=== PATIENT | male | born 1965 | race African-American/Black ===

== ENCOUNTER 2022-02-26 00:07 | Day surgery (SDC) | payer MEDICARE, MEDICAID, SELFPAY ==
[2022-02-17 16:23] VITALS: BMI 31.0
[2022-02-26 12:16] VITALS: BP 156/99; PULSE 70; RESP 18; TEMP 36.3; O2SAT 100
[2022-02-26] MEDS: LACTATED RINGERS 1,000 ML 150 ML IV CONT (12:29)
[2022-02-26 12:30] LABS: Glucose Point of Care 129 mg/dl (65-105)
--- NOTE | 2022-02-26 13:01 | WPDHPUPDATE1 ---
History and Physical Update Update Date/Time: 02/26/22 13:01 History and Physical has been reviewed, including an updated exam of the patient. There are NO changes in the patient's condition. Risks, benefits, and alternatives have been discussed and questions answered. Patient agrees to proceed with procedure.
--- NOTE | 2022-02-26 13:14 | WPDANESEPPF ---
Anes - Initial Pre Proc Eval Procedure: Operation Date: 02/26/22 13:30 Proposed Procedures p Esophagogastroduodenoscopy & Colonoscopy - Jefry Harrison MD Date/Time: 02/26/22 13:14 Surgeon: Jefry Harrison MD Pre Op Diagnosis: RACHAEL; rectal bleeding Patient Data Age: 56 Gender: M Height: 1.85 m Weight: 100.7 kg Last Vital Signs Temp 97.4 F L 02/26/22 12:16 Pulse 70 02/26/22 12:16 Resp 18 02/26/22 12:16 BP 156/99 H 02/26/22 12:16 Pulse Ox 100 02/26/22 12:16 O2 Del Method Room Air 02/26/22 12:16 Allergies Allergy/AdvReac Type Severity Reaction Status Date / Time No Known Allergies Allergy Verified 02/26/22 12:11 Home Medications Medication Instructions Recorded Confirmed Type hydrocodone 7.5 mg-acetaminophen 1 tablet PO Q12H PRN pain #30 tabs 10/28/20 02/17/22 Rx 325 mg tablet acetaminophen 650 mg 650 mg PO Q8H PRN Back Pain 01/21/21 02/17/22 History tablet,extended release (Tylenol 8 Hour) amlodipine 10 mg tablet 10 mg PO DAILY 01/21/21 02/17/22 History aspirin 81 mg tablet,delayed 81 mg PO DAILY 01/21/21 02/17/22 History release azelastine 137 mcg (0.1 %) nasal 1 spray intranasal Q12H PRN 01/21/21 02/17/22 History spray aerosol Allergy Symptoms calcitriol 0.25 mcg capsule 0.25 mcg PO DAILY 01/21/21 02/17/22 History carbamazepine 200 mg tablet 200 mg PO TID 01/21/21 02/17/22 History cetirizine 10 mg tablet (Zyrtec) 10 mg PO DAILY PRN Allergy Symptoms 01/21/21 02/17/22 History cholecalciferol (vitamin D3) 1,250 1,250 mcg PO WEEKLY 01/21/21 02/17/22 History mcg (50,000 unit) capsule fluticasone propionate 50 1 spray intranasal DAILY 01/21/21 02/17/22 History mcg/actuation nasal spray,suspension (Allergy Relief (fluticasone)) ipratropium bromide 21 mcg (0.03 2 spray intranasal BID 01/21/21 02/17/22 History %) nasal spray metformin 500 mg tablet,extended 1,000 mg PO DAILY 01/21/21 02/17/22 History release 24hr minoxidil 2.5 mg tablet 5 mg PO BID 01/21/21 02/17/22 History montelukast 10 mg tablet 10 mg PO QHS 01/21/21 02/17/22 History omega-3 fatty acids 1,000 mg 1,000 mg PO DAILY 01/21/21 02/17/22 History capsule (Fish Oil Concentrate) rosuvastatin 40 mg tablet 40 mg PO DAILY 01/21/21 02/17/22 History sertraline 50 mg tablet 50 mg PO DAILY 01/21/21 02/17/22 History spironolactone 100 mg tablet 100 mg PO DAILY 01/21/21 02/17/22 History levetiracetam 1,000 mg tablet 1,500 mg PO BID #90 tabs 02/05/22 02/17/22 Rx sacubitril 97 mg-valsartan 103 mg 1 tablet PO BID 02/17/22 02/17/22 History tablet (Entresto) Laboratory Tests 02/26/22 12:27 POC Capillary Glucose 129 mg/dl H mg/dl (65-105) Patient hx anesthesia problems: none Family hx anesthesia problems: none Results Review: All pre-operative results and documents have been reviewed as part of the pre-operative evaluation. [facility] Past Medical History Medical History (Updated 02/10/22 @ 09:17 by Marina Malin APRN) BRBPR (bright red blood per rectum) Family history of GI malignancy GERD (gastroesophageal reflux disease) RACHAEL (iron deficiency anemia) Tobacco abuse Surgical History Surgical History History of left knee replacement Social History Social History (Updated 02/17/22 @ 16:33 by Michelle Schuster RN) Smoking packs per day: 0.5 Smoking cigarettes per day: 10.0 Years smoked: 45 Smoking pack-years: 22.50 Smoking status: Current every day smoker Tobacco type: cigarettes Second hand tobacco smoke exposure: Yes Alcohol intake: never Substance use: never Substance use type: does not use Living arrangements: with family Gender identity (if verbalized by the patient): Male Spiritual care concerns: No Anes - Eval Final PreProcedure Day of Procedure 02/26/22 13:14 Patient weight: normal Heart: regular rate and rhythm Lungs: clear to auscultation Airway: Mallampati sca
--- NOTE | 2022-02-26 13:59 | SUR.OPER ---
EGD: [id number] COLON: [id number]
[2022-02-26 14:31] VITALS: BP 122/81; PULSE 66; RESP 17; O2SAT 98
[2022-02-26 14:41] VITALS: BP 150/89; PULSE 63; RESP 19; O2SAT 100
[2022-02-26 14:51] VITALS: BP 153/92; PULSE 61; RESP 21; O2SAT 100
== END 2022-02-26 15:05 | disposition home or self-care (01) ==
PROVIDERS: PCP Internal Medicine Infectious Disease; Visit Provider Internal Medicine Gastroenterology
PROC: 0DJ08ZZ Inspection of Upper Intestinal Tract, Via Natural or Artificial Opening Endoscopic (ICD-10-PCS; CPT 43235; principal; 2022-02-26 13:30)
DX: K62.5 Hemorrhage of anus and rectum (principal); D50.9 Iron deficiency anemia, unspecified; K64.8 Other hemorrhoids; K21.9 Gastro-esophageal reflux disease without esophagitis; K57.30 Diverticulosis of large intestine without perforation or abscess without bleeding; Z79.82 Long term (current) use of aspirin; Z79.84 Long term (current) use of oral hypoglycemic drugs; Z79.891 Long term (current) use of opiate analgesic; F17.210 Nicotine dependence, cigarettes, uncomplicated
CPT/HCPCS: 45378; 43239; 82948; 87081; J2250; J2704; J7120

== ENCOUNTER 2022-03-13 06:38 | Outpatient (CLI) | payer MEDICARE, MEDICAID, SELFPAY ==
--- NOTE | 2022-03-13 06:42 | SUR.OPER ---
Patient brought to GI Lab. Instructions for patient undergoing Capsule Endoscopy reviewed with patient. Consent form signed. Sensor array applied to patient's abdomen and connected to recorded. Patient swallowed capsule with 2 cups of water infused with Simethicone. Patient instructed they may have clear liquids at 0830 this AM and eat or drink at 1030 this AM. Patient instructed to return to GI Lab at 1500 this afternoon for removal of recording device and to call [phone] or to return to the hospital if any nausea and vomiting or abdominal pain is experienced.
--- NOTE | 2022-03-13 15:00 | SUR.PHASEII ---
Patient returned to the GI Lab at 1500 for recorder box removal. Patient voiced no complaints. States they have understanding of instructions. Patient left ambulatory.
== END 2022-03-13 06:39 | disposition home or self-care (01) ==
LOC: ANHENDO 03-17 06:39
PROVIDERS: PCP Internal Medicine Infectious Disease; Visit Provider Internal Medicine Gastroenterology
PROC: 0DJ07ZZ Inspection of Upper Intestinal Tract, Via Natural or Artificial Opening (ICD-10-PCS; CPT 91110; principal; 2022-03-13 07:00)
DX: D50.9 Iron deficiency anemia, unspecified (principal); K29.80 Duodenitis without bleeding; K63.5 Polyp of colon
CPT/HCPCS: 91110

== ENCOUNTER 2023-11-18 09:09 | Outpatient (CLI) | payer MEDICARE, MEDICAID, SELFPAY ==
--- NOTE | ~2023-11-18 | MR_ITS ---
EXAMINATION: MR brain/brain stem wo con DATE: 11/18/2023 10:34 INDICATION: Epilepsy TECHNIQUE: Magnetic resonance imaging (MRI) of the brain and brainstem was performed without intraven ous contrast. Sequences included sagittal and axial T1-weighted SE, axial diffusion-weighted FS SE, a xial 3D SWAN, axial T2-weighted FLAIR, and axial T2-weighted FSE. Apparent diffusion coefficient (ADC ) maps were created. COMPARISON: None. FINDINGS: There are no areas of restricted diffusion to suggest acute infarction. Small old lacunar infarct in the right lentiform nucleus. No abnormal intracranial mass lesion. There are scattered areas of nonsp ecific increased T2-weighted signal intensity in the cerebral white matter, predominantly involving t he deep and periventricular white matter. Small foci of susceptibility artifact in the medial and lat eral left temporal lobe, in the left thalamus and left caudate nucleus consistent with sequela of chr onic microhemorrhage. There are no intraparenchymal signal abnormalities seen on the other pulse sequ ences. The ventricles are symmetric and normal in size. There are no abnormal extra-axial fluid colle ctions. No evident flow void along the course of the right vertebral artery which may be either dimin utive or occluded. Flow voids are seen in the remainder of the cerebral arteries on the T2-weighted s equences consistent with their expected patency. Mild mucosal thickening the bilateral ethmoid sinuse s. Visualized orbits and soft tissues are unremarkable. Severe upper cervical spondylosis. IMPRESSION: 1. Small old lacunar infarct at the right ventral nucleus. No acute intracranial process. 2. A few scattered foci of susceptibility artifact consistent with sequela of chronic microhemorrhage as detailed above most likely sequela of hypertension but can be seen with amyloid angiopathy. 3. Absent right vertebral artery flow-void which could be due to dominant left vertebral artery and d iminutive right vertebral artery or occlusion of the right vertebral artery. Reviewed, dictated and finalized at location A. IMPRESSION: 1. Small old lacunar infarct at the right ventral nucleus. No acute intracrania l process. 2. A few scattered foci of susceptibility artifact consistent with sequela of c hronic microhemorrhage as detailed above most likely sequela of hypertension bu t can be seen with amyloid angiopathy. 3. Absent right vertebral artery flow-void which could be due to dominant left vertebral artery and diminutive right vertebral artery or occlusion of the righ t vertebral artery.
== END 2023-11-18 09:10 | disposition home or self-care (01) ==
LOC: ANHIMG 09:11
PROVIDERS: PCP Internal Medicine Infectious Disease; Visit Provider Student in an Organized Health Care Education/Training Program
DX: G40.909 Epilepsy, unspecified, not intractable, without status epilepticus (principal); Z86.73 Personal history of transient ischemic attack (TIA), and cerebral infarction without residual deficits
CPT/HCPCS: 70551

== ENCOUNTER 2024-11-09 12:04 | Outpatient (CLI) | payer MEDICARE, MEDICAID, SELFPAY ==
--- NOTE | ~2024-11-09 | XR_ITS ---
MODIFIED ESOPHAGRAM HISTORY: Dysphagia. TECHNIQUE: Modified barium esophagram was performed on 11/09/2024. I administered fluoroscopy and perf ormed the exam with speech pathologist. Patient was seated for lateral fluoroscopic imaging for sathya stion of thin liquids, pudding, solids and quantified amounts, followed by thin liquids in uncontroll ed amounts. This was recorded on tape. A single fluoroscopic spot image was also recorded. The DAP fo r this procedure was 0.792 Gycm2. The amount of fluoroscopy time used during this procedure was 1.2 m inutes. FINDINGS: Oral stage: Adequate function. Pharyngeal stage: Adequate function. Cervical/esophageal stage: Adequate function. IMPRESSION: Patient tolerated regular consistency oral feedings in the upright position. Please cande elate with speech pathologist findings and specific feeding recommendations. Reviewed, dictated and finalized at location A. IMPRESSION: Patient tolerated regular consistency oral feedings in the upright position. Please correlate with speech pathologist findings and specific feedi ng recommendations.
--- OUTSIDE RECORDS SUMMARY | 2024-11-09 12:08 | XMS_ITS | Referral Summary ---
Author Organization [facility] Address [address] [place] [address] Care Team Providers Care Multimedia Educational Specialist Name Role Phone Regino Pardo MD Primary Care Provider Carlo Al MD Unavailable Encounters Date Type Department Care Team Description 10/20/2024 Telephone [facility] Gastroenterology at [address] [place] [address] Rebekah Marino 10/18/2024 Results Follow-Up [facility] Gastroenterology at [address] [place] [id number] Glory Jaffe MD Surgical pathology 10/06/2024 11:31 AM CDT Anesthesia Event [address] [address] Jefry Briggs MD Zirkelbach, Cecilia A., CRNA 10/06/2024 10:00 AM CDT - 10/06/2024 10:30 AM CDT Surgery [address] [address]Glory Grossman MD COLON REMOVAL SNARE 10/06/2024 8:39 AM CDT - 10/06/2024 12:46 PM CDT Hospital Encounter [address] [address]Glory Grossman MD Hx of colonic polyps Discharge Disposition: Discharge to home or self care 08/15/2024 Telephone [facility] Gastroenterology at [address] [place] [address] Natalya Marino MA 08/11/2024 8:15 AM CDT Office Visit [facility] Gastroenterology at [address] [place] [phone] Reyes Rivera NP Postprandial bloating (Primary Dx); Chronic constipation; Chronic prescription opiate use; High grade dysplasia in colonic adenoma; Tubular adenoma of colon from Last 3 Months Allergies Active Allergy Reactions Criticality Noted Date Comments Umeclidinium-Vilanterol Itching Low 04/21/2019 Medications phenytoin ER (DILANTIN) 100 mg ER capsule Take 2 capsules (200 mg total) by mouth 2 (two) times a day Active sacubitril-valsa rtan (ENTRESTO) 97-103 mg tabletIndication s:chronic heart failure Take 1 tablet by mouth 2 (two) times a day Active rosuvastatin (CRESTOR) 40 mg tablet Take 1 tablet (40 mg total) by mouth daily Active carBAMazepine (TEGretol) 200 mg tablet Take 1 tablet (200 mg total) by mouth 3 (three) times a day Active levETIRAcetam (KEPPRA) 1,000 mg tablet Take 1.5 tablets (1,500 mg total) by mouth 2 (two) times a day Active blood glucose diagnostic strip 1 each by other route daily Active montelukast (SINGULAIR) 10 mg tablet Take 1 tablet (10 mg total) by mouth nightly Active chlorthalidone 25 mg tablet Take 1 tablet (25 mg total) by mouth daily 3 Active pen needle, diabetic (Pen Needle) 32 gauge x 5/32 needle Use as directed once a day. 100 each 3 Active pen needle, diabetic 32 gauge x 5/32 needle Use as directed 3 times a day. 100 each 3 Active OneTouch Ultra2 Meter misc as directed 3 Active OneTouch Delica Plus Lancet 33 gauge misc USE TO TEST THREE TIMES DAILY 3 Active naloxone (Narcan) 4 mg/actuation spray,non-aeroso l Narcan 4 mg/actuation nasal spray SPRAY ONCE IN ONE NOSTRIL IF NEEDED FOR OPIOID OVERDOSE. MAY REPEAT ONCE IN OTHER NOSTRIL IN 2 MINUTES Active insulin glargine 100 unit/mL (3 mL) pen for injection Inject 48 Units under the skin nightly E 11.65 45 mL 3 3 Active insulin aspart niacinamide (FIASP) 100 unit/mL (3 mL) pen for injectionIndicat ions:type 2 diabetes mellitus Inject 15 Units under the skin 3 (three) times a day before meals E11.65 45 mL 3 4 Active docusate sodium (Colace) 100 mg capsuleIndicatio ns:constipation Take 1 capsule (100 mg total) by mouth 2 (two) times a day for 14 days 28 capsule 4 Active rOPINIRole (REQUIP) 0.25 mg tablet Take 1 tablet (0.25 mg total) by mouth 3 (three) times a day Active acetaminophen ER (Tylenol Arthritis Pain) 650 mg 8 hr tablet Active cetirizine (ZyrTEC) 10 mg capsule Active niacin ER (NIASPAN) 1,000 mg CR tablet Take 1 tablet every day by oral route. Active famotidine (PEPCID) 20 mg tablet TAKE 1 TABLET BY MOUTH DAILY FOR HEARTBURN 4 Active HYDROcodone-acet aminophen (NORCO) 7.5-325 mg per tablet Take 1 tablet by mouth 4 (four) times a day 4 Active sertraline (ZOLOFT) 50 mg tablet Take 1 tablet (50 mg total) by mouth daily 4 Active brlaj-3r-qhy-epa -algal oil 726-048-02-500 mg capsule Take 1 capsule by mouth daily Active aspirin 81 mg enteric coated tablet Take 1 tablet (81 mg total) by mouth daily Active gabapentin (NEURONTIN) 300 mg capsule Take 1 capsule (300 mg total) by mouth daily Active carvediloL (COREG) 3.125 mg tablet Take 1 tablet (3.125 mg total) by mouth 2 (two) times a day with meals 60 tablet 11 4 04/08/20 25 Active spironolactone (ALDACTONE) 50 mg tablet Take 1 tablet (50 mg total) by mouth daily Active Phenytek 200 mg ER capsule Take 1 capsule (200 mg total) by mouth daily 4 Active cholecalciferol 400 unit capsule Act katharina calcitRIOL (ROCALTROL) 0.25 mcg capsule Take 1 capsule (0.25 mcg total) by mouth daily Active chlorproMAZINE (THORAZINE) 25 mg tablet Take 1 tablet (25 mg total) by mouth 5 Active ergocalciferol (VITAMIN D) 50,000 unit capsule Take 1 capsule (50,000 Units total) by mouth once a week 5 Active NIFEdipine CC 90 mg 24 hr tablet Take 1 tablet (90 mg total) by mouth daily 5 Active spironolactone (ALDACTONE) 100 mg tablet Take 1 tablet (100 mg total) by mouth daily 5 Active omega 3-zdf-gdd-fish oil 1,000 mg (250 mg-750 mg)/5 mL liquid Take by oral route. Active senna (SENOKOT) 8.6 mg tablet Take two tabs at night on a twice weekly basis to help facilitate larger and more complete bowel movements. 60 tablet 3 5 Active simethicone (MYLICON) 125 mg chewable tablet Take 1 tablet (125 mg total) by mouth 4 (four) times a day as needed (cramping/bloat ing/gas/nausea) 120 tablet 11 5 Active vgplb-a-hflivaci idase 400 unit tablet Take two tabs before eating 3 times daily. If not eating, do not have to take. Take right as you start eating. 180 tablet 11 5 Active Lactobacillus rhamnosus GG (CULTURELLE) 10 billion cell capsule Take 1 capsule by mouth daily 90 capsule 3 5 08/12/19 26 Active allopurinoL (ZYLOPRIM) 100 mg tablet Take 1 tablet (100 mg total) by mouth daily Active vit C,V-Bb-anwzh-lut ein-zeaxan 250-90-40-1 mg capsule Take by mouth Active Active Problems Problem Noted Date Diagnosed Date History of colonic polyps 10/20/2024 Tubular adenoma of colon 08/11/2024 Postprandial bloating 08/11/2024 Hx of colonic polyps 05/04/2024 Constipation 04/13/2024 Screening for colon cancer 04/13/2024 Chest pain, unspecified type 04/07/2024 S/P hemorrhoidectomy 03/07/2024 Breakthrough seizure 03/05/2024 CKD stage 3a, GFR 45-59 ml/min 02/13/2024 Lower GI bleeding 02/10/2024 Diabetic ketoacidosis withou t coma associated with type 2 diabetes mellitus 08/17/2022 Chronic heart failure with preserved ejection fr action 08/17/2022 Kidney cysts 10/15/2019 Class 1 obesity due to exces s calories with serious comorbidity in adult 10/15/2019 Community acquired pneumonia of right lung 02/27 Hemoptysis 02/27/2019 Weight loss 02/27/2019 Night sweats 02/27/2019 Hypertensive crisis 01/28/2019 Acute on chronic systolic CHF (congestive heart failure) 01/27/2019 MERCEDES on CPAP 01/27/2019 MICKIE (acute kidney injury) ([facility]) 01/27/2019 Type 2 diabetes mellitus wit h hyperglycemia, with long-term current use of insulin ([facility]) 01/27/2019 Assessment & Plan (09/03/2022 3:13 PM CDT): This is a chronic condition which is out of control, improving not at goal of less than 7%. Personally reviewed most recent A1c - Lab Results Component Value Date HGBA1C 11.0 (H) 08/16/2022 Personally reviewed POC blood sugar- at goal 80-180 Lab Results Component Value Date POCGLU 97 09/03/2022 Medication-continue metformin 500 mg 1 tab twice daily Lantus 55 units daily HS, lispro 18 units 15 minutes prior to meals. Discussed using 10 units for small meals 15 units for medium meals and 18 units for large meal Discussed adding Jardiance but will wait until I can review the most recent lab results. Monitor blood sugar 3 times a day. Does not want a sensor sensor. States he can not stand have things hanging on him. Encouraged annual eye exam. last dilated eye exam was [facility] Monofilament foot exam completed. protective senses intact but diminished Treated with gabapentin Urine microalbumin/creatinine ratio - goal <30 treated with amlodipine, chlorthalidone, sacubitril/valsartan, spironolactone. Personally reviewed [facility] eGFR-49 Kidney function- abnormal B/P today- at goal of <140/90. Continue amlodipine, chlorthalidone, sacubitril/valsartan, spironolactone. Personally reviewed lipid panel. Not at Goal of less than 70. Continue Crestor Seizure disorder (CMS/HCC) 01/27/2019 Primary hypertension 01/27/2019 Assessment & Plan (09/03/2022 3:15 PM CDT): This is a chronic condition which is at goal of less than 140/90 Personally reviewed labs. Continue treated with amlodipine, chlorthalidone, sacubitril/valsartan, spironolactone. Encouraged to void caffeine and excessive alcohol consumption as this will elevate B/P Encouraged to monitor weight and B/P at home Explained correct way to take blood pressure. - After 5 minutes of sitting calmly with arm supported. Encouraged to take medications as prescribed. Elevated troponin 01/27/2019 Sinus tachycardia 01/27/2019 Positive D dimer 01/27/2019 Tobacco use disorder Mediastinal mass Hypertensive urgency Chest pain Acute kidney injury (MICKIE) with acute tubular nec rosis (ATN) Resolved Problems Problem Noted Date Diagnosed Date Resolved Date Hemorrhoids 02/21/2024 03/07/2024 Assessment & Plan (02/28/2024 6:24 AM CDT): Discussed the procedure of hemorrhoidectomy as well as the post operative period, patient Is understanding and agreeable. We also discussed picking up his miralax and making sure he is having a bowel movement at least every 2 days, patient is understanding. Bleeding hemorrhoid 02/13/2024 03/28/20 Acute cholecystitis 03/28/20 Assessment & Plan (10/31/2019 9:22 AM CDT): Diet as tolerates. Bowel regimen as needed. No heavy lifting for 4 weeks. No submerging incisions for 4 weeks. Okay to return to work with light duty. Patient to call back with any further questions or concerns. Immunizations Immunization Administration Dates Next Due Influenza, Quadrivalent, Spl it, Intramuscular 01/31/2019,01/25/2017,01/14/2016 Influenza, Trivalent, IM (MDV) 01/31/2017 Influenza, Unspecified 01/23/2019 Social History Tobacco Use Types Packs/Day Years Used Date Smoking Tobacco: Every Day Cigarettes 1 45 Smokeless Tobacco: Never Tobacco Cessation:Ready to Q uit: Not Asked; Counseling Given: Not Answered Comments:pt reports not smoking over the past 2 days Alcohol Use Standard Drinks/Week Comments Never 0 (1 standard drink = 0.6 oz pur e alcohol) [facility] Utilities Answer Date Recorded In the past 12 months has e [employer], gas, oil, or water [employer] threatened to shut off services in your home? No 03/07/2024 Social Connection and Isolat ion Panel [NHANES] Answer Date Recorded In a typical week, how many times do you talk on the phone with family, friends, or neighbors? More than three times a week 03/07/2024 How often do you get togethe r with friends or relatives? Once a week 03/07/2024 How often do you attend chur ch or confucianist services? Never 03/07/2024 Do you belong to any clubs o r organizations such as restorationism groups, unions, fraternal or athletic groups, or school groups? No 03/07/2024 How often do you attend meet ings of the clubs or organizations you belong to? Never 03/07/2024 Are you , , di vorced, , never , or living with a partner? Living with partner 03/07/2024 AUDIT-C Answer Date Recorded Q1: How often do you have a drink containing alcohol? Never 10/06/2024 Q2: How many drinks containi ng alcohol do you have on a typical day when you are drinking? Patient does not drink Q3: How often do you have si x or more drinks on one occasion? Never 10/06/2024 Overall Financial Resource Strain (CARDIA) Answe r Date Recorded How hard is it for you to pa y for the very basics like food, housing, medical care, and heating? Not hard at all 03/07/2024 PHQ-2 Answer Date Recorded PHQ-2 Total Score (If total score is 3 or more points, staff should administer the PHQ-9) 0 10/18/2019 Hunger Vital Sign Answer Date Recorded Within the past 12 months, y ou worried that your food would run out before you got the money to buy more. Never true 03/07/20 24 Within the past 12 months, t he food you bought just didn't last and you didn't have money to get more. Never true 03/07/2024 PRAPARE - Transportation Answer Date Re corded In the past 12 months, has l ack of transportation kept you from medical appointments or from getting medications? No 09/2023 In the past 12 months, has l ack of transportation kept you from meetings, work, or from getting things needed for daily living? No 03/07/2024 Housing Stability Vital Sign Answer Colton e Recorded In the last 12 months, was t here a time when you were not able to pay the mortgage or rent on time? No 03/07/2024 In the past 12 months, how m any times have you moved where you were living? 0 03/07/2024 At any time in the past 12 m [facility], were you homeless or living in a intermediate (including now)? No 03/07/2024 Personal Safety Answer Date Recorded Have you ever been in or are you currently in a harmful physical or emotional relationship or is someone making you feel afraid or unsafe? 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 Gender Identity Not on file Sexual Orientation Not on file Last Filed Vital Signs Vital Sign Reading Time Taken Comments Blood Pressure 158/93 10/06/2024 12:36 PM CDT Pulse 57 10/06/2024 12:36 PM CDT Temperature 36.4 C (97.6 F) 10/06/2024 12:36 PM CDT Respiratory Rate 16 10/06/2024 12:36 PM CDT Oxygen Saturation 99% 10/06/2024 12:36 PM CDT Inhaled Oxygen Concentration - - Weight 104.3 kg (230 lb) 10/06/2024 9:34 AM CDT Height 185.4 cm (6' 1) 10/06/2024 9:34 AM CDT Body Mass Index 30.34 10/06/2024 9:34 AM CDT Plan of Treatment Upcoming Encounters Date Type Department Care Team (Late st Contact Info) Description 10/10/2025 7:55 AM CDT Hospital Encounter [address] [address] Glory Jaffe MD [address] [place] [address] 10/10/2025 7:55 AM CDT - 10/10/2025 8:25 AM CDT Surgery [facility] [address] [place] [address] Glory Jaffe MD [address] [place] [address] COLONOSCOPY Scheduled Procedures Name Priority Associated Diagnoses Date/Ti me COLONOSCOPY History of colonic polyps 10/10/2025 7:55 AM CDT Procedures Procedure Name Priority Date/Time Associated Diagnosis Comments SURGICAL PATHOLOGY STAT 10/06/2024 1: 42 PM CDT Hx of colonic polyps ENDO ADD ON COLON BIOPSY 10/06/2024 11:22 AM CDT Hx of colonic polyps COLON REMOVAL SNARE 10/06/2024 1 1:22 AM CDT Hx of colonic polyps POCT GLUCOSE DEVICE Routine 10/06/2024 1 0:11 AM CDT COLONOSCOPY 10/06/2024 8:53 AM CDT EGFR Routine 04/08/2024 5:36 AM DIRECTOR MEDICAL SURGICAL HEMOGLOBIN A1C Routine 04/08/2024 5:36 AM DIRECTOR MEDICAL SURGICAL LIPID PANEL Routine 04/08/2024 5:36 AM DIRECTOR MEDICAL SURGICAL DIABETIC EYE EXAM Routine 09/01/2022 ALBUMIN CREATININE RATIO, URINE Routine 05/08/2022 from Last 3 Months or Most Recently Relevant to Health Maintenance Results * Surgical pathology (10/06/2024 1:42 PM CDT) Tissue (Polyp(s), colon/colorectal, esophageal, gastric) 10/06/2024 12:06 PM CDT Tissue specimen (specimen) (Polyp(s), colon/colorectal, esophageal, gastric) 10/06/2024 12:07 PM CDT Tissue specimen (specimen) (Polyp(s), colon/colorectal, esophageal, gastric) 10/06/2024 12:07 PM CDT Tissue specimen (specimen) (Colon, Biopsy) 10/06/2024 12:07 PM CDT Narrative PATHOLOGY [facility] - 10/10/2024 4:55 PM CDT EPIC results best viewed via link to PDF [facility] Department of Pathology [address] [place] [address] Note to Patients: This report may contain a detailed description of human tissue sent by a health care provider to the laboratory for pathologic evaluation. The content of this report is essential for diagnosis and may provide important critical findings. This information may be unfamiliar to patients to review without a medical professional present. It is advised that the patient review this report in the presence of a health care provider who can answer questions and explain the details. Final Report Patient Name: HORTENCIA CAMARENA Address: [address] [place] [address] Gender: [place] : 1965 (Age: 59) Service: Gastro Location: [facility] Hospital #: [id number] Patient Type: [facility] Taken: 10/06/2024 Received: 10/06/2024 Accessioned: 10/06/2024 Reported: 10/10/2024 Physician(s):Glory Jaffe MD Diagnosis: A. Colon, cecum, biopsy: - Polypoid fragments of colonic mucosa with superficial hyperplastic change. B. Colon, ascending, polypectomy: - Tubular adenoma. C. Colon, descending, polypectomy: - Tubular adenoma. D. Colon, left, biopsy: - Minimal inactive chronic colitis. - No evidence of dysplasia or malignancy. Lynsey Naik M.D. Report Electronically Reviewed and Signed Out By Lynsey Naik M.D. 10/10/2024 16:55:36 Specimen(s) Received: A: Cecum polyp x 1 B: Ascending colon polyp x 1 C: Descending colon polyp x 1 D: Left colon biopsy Microscopic Description: A. Microscopic examination of the cecum show polypoid fragments of colonic mucosa with superficial hyperplastic change. Additional H&E recuts are obtained and show similar features. B & C. Microscopic examination of the ascending and descending colon both show a single tubular adenoma without evidence of high-grade dysplasia or malignancy. D. Microscopic examination of the random left colon biopsies, examined at multiple levels show fragments of minimally edematous colonic mucosa with changes consistent with minimal inactive chronic colitis. There is no evidence of acute cryptitis, crypt abscesses, granulomas or other infiltrative processes, although a rare benign lymphoid aggregate is noted. There is no evidence of dysplasia or malignancy. Clinical History: History of colonic polyps. Colonoscopy. Gross Description: The specimen is submitted in four containers labeled HORTENCIA CAMARENA. A. The first container is labeled cecum polyp. It is 2 huang tissue fragments between 2 and 5 mm. All in A. B. The second container is labeled ascending colon polyp. It is one huang tissue fragment measuring 2 mm. All in B. C. The third container is labeled descending colon polyp. It is one huang tissue fragment measuring 2 mm. All in C. D. The fourth container is labeled left colon. It is 2 huang tissue fragments between 2 and 3 mm. All in D. T.A. Silvia Noland., P.A./Min Chapman M.D. REPORT IMAGES AND SCANNED DOCUMENTS, IF INCLUDED, ONLY VIEWABLE IN PDF VERSION OF REPORT The performance characteristics of some immunohistochemical stains, fluorescence in-situ hybridization tests and immunophenotyping by flow cytometry cited in this report (if any) were determined by the Surgical Pathology Department at [facility] as part of an ongoing director software quality assurance program and in compliance with federally mandated regulations drawn from the Clinical Laboratory Improvement Act of 1988 (CLIA '88). Some of these tests rely on the use of analyte specific reagents and are subject to specific labeling requirements by the US Food and Drug Administration. Such diagnostic tests may only be performed in a facility that is certified by the Department of Health and Human Services as a high complexity laboratory under CLIA '88. The FDA has determined that such clearance or approval is not necessary. This test is used for clinical purposes. It should not be regarded as investigational or for research. Nevertheless, federal rules concerning the medical use of analyte specific reagents require that the following disclaimer be attached to the report: This test was developed and its performance characteristics determined by the Surgical Pathology Department [facility]. It has not been cleared or approved by the U. S. Food and Drug Administration. Note for decalcified specimens: This assay has not been validated on decalcified tissues. Results should be interpreted with caution given the possibility of false negativity on decalcified specimens Glory Jaffe MD LAB PATHOLOGY ORDERABLES Final R esult PATHOLOGY [facility] [address] [place] [id number] * POCT glucose (10/06/2024 10:11 AM CDT) Glucose, POC 115 70 - 199 mg/dL Blood 10/06/2024 10:1 1 AM CDT 10/06/2024 10:11 AM CDT Glory Jaffe MD LAB POCT ORDERABLES - DEVICE Fin al Result Performing Organization Address [facility] Co de Phone Number [facility]ERN[facility] [address] Department [place] [address] * Colonoscopy (10/06/2024 8:53 AM CDT) Anatomical Region Laterality Modality Other Narrative Procedure Note Glory Jaffe MD - 10/06/2024 8:53 AM CDT [facility] Patient Name: Hortencia Camarena Procedure Date: 10/06/2024 8:53 AM Date of : 1965 Admit Type: Outpatient Age: 59 Gender: Male Attending MD: Glory Jaffe M.D. Room: [facility] ENDOSCOPY ROOM 2 Note Status: Finalized Patient Profile: This is a 59 year old male history of MERCEDES, DM, CHF, tobacco use here for colon polyp surveillance. Last colonoscopy from 04/2024 showed 15 mm tubularadenoma with small foci of high grade dysplasia in thececum removed with snare and forceps and 3 otherdiminutive to small adenomas. Prep was fair. Procedure: Colonoscopy Indications: High risk colon cancer surveillance: Personalhistory of adenoma with high grade dysplasia, Lastcolonoscopy within the past 6 months Referring MD: Regino Pardo M.D. Providers: Glory Jaffe M.D. Impression: - Scar tissue with two diminuitive polyps fromprior polypectomy site. Removed with cold snare and jumbo forceps - Two 2 mm polyps in the descending colon and inthe ascending colon, removed with a jumbo cold forceps. Resected and retrieved. - Erythematous mucosa in the sigmoid colon and inthe descending colon. Biopsied. - External and internal hemorrhoids. - Colonic spasm. Recommendation: - Patient has a contact number available for emergencies. The signs and symptoms of potential delayed complications were discussed with thepatient. Return to normal activities tomorrow. Written discharge instructions were provided to thepatient. - Discharge patient to home (with escort). - Resume previous diet. - Continue present medications. - Await pathology results. - Repeat colonoscopy in 1 year with 2 day prep for surveillance based on pathology results. - Return to referring physician as previously scheduled. Medicines: Monitored Anesthesia Care Complications: No immediate complications. Estimated Blood Loss: Estimated blood loss was minimal. Procedure: Pre-Anesthesia Assessment: - Prior to the procedure, a History and Physicalwas performed, and patient medications and allergieswere reviewed. The patient is competent. The risks and benefits of the procedure and the sedation optionsand risks were discussed with the patient. Allquestions were answered and informed consent was obtained. Patient identification and proposed procedure were verified by the physician, the tread cutter and the evidence technician in the endoscopy suite. Mental Status Examination: normal. Prophylactic Antibiotics: The patient does not require prophylactic antibiotics. Prior Anticoagulants: The patient has taken no anticoagulant or antiplatelet agents. Afterreviewing the risks and benefits, the patient was deemed in satisfactory condition to undergo the procedure.The anesthesia plan was to use monitored anesthesiacare (MAC). Immediately prior to administration of medications, the patient was re-assessed foradequacy to receive sedatives. The heart rate, respiratory rate, oxygen saturations, blood pressure, adequacyof pulmonary ventilation, and response to care were monitored throughout the procedure. The physical status of the patient was re-assessed after the procedure. The benefits, risks and alternatives of theprocedure and sedation were discussed and informed consentwas obtained. All questions were answered. Please referto the signed informed consent document in the medical record. The bowel preparation used was Miralax and bisacodyl tablets via split dose instruction. The scope was passed under direct vision. The Pediatric Colonoscope [id number] was introduced through the anus and advanced to the the cecum, identified by appendiceal orifice and ileocecalvalve. The colonoscopy was performed without difficulty.The patient tolerated the procedure well. The qualityof the bowel preparation was adequate. Bowel prep was administered using a split dose. Findings: The perianal and digital rectal examinations were normal. Scar tissue with two diminuitive polyps from prior polypectomy site. Removed with cold snare and jumbo forceps. Two sessile polyps were found in the descending colon and ascending colon. The polyps were 2 mm in size. These polyps were removed with a jumbo cold forceps. Resection and retrieval were complete. A scattered area of mildly erythematous mucosa was found in thesigmoid colon and in the descending colon. This was biopsied with a coldforceps for histology. External and internal hemorrhoids were found during retroflexion. There was spasm in the rectum, in the sigmoid colon and in the descending colon. Glory Jaffe M.D. 10/06/2024 12:15:13 PM Number of Addenda: 0 Note Initiated On: 10/06/2024 8:53 AM Procedure Code(s): --- Professional --- 90873, Colonoscopy, flexible; with biopsy, single or multiple --- Technical --- 50643, Colonoscopy, flexible; with biopsy, single or multiple Diagnosis Code(s): --- Professional --- Z86.010, Personal history of colonic polyps D12.4, Benign neoplasm of descending colon D12.2, Benign neoplasm of ascending colon K63.89, Other specified diseases of intestine K64.8, Other hemorrhoids --- Technical --- Z86.010, Personal history of colonic polyps D12.4, Benign neoplasm of descending colon D12.2, Benign neoplasm of ascending colon K63.89, Other specified diseases of intestine K64.8, Other hemorrhoids CPT copyright 2020 [employer]. All rights reserved. The codes documented in this report are preliminary and upon roll former reviewmay be revised to meet current compliance requirements. Recognized by the [employer] for promoting quality in endoscopy Glory Jaffe MD ENDOSCOPY PROCEDURES Final Resul t * (ABNORMAL) eGFR (04/08/2024 5:36 AM DIRECTOR MEDICAL SURGICAL) eGFR 54(L) >=60 mL/min/1. 73 m2 Comment: Interpretive Data Reference Interval Normal >/= 90 mL/min/1.73m2 Mildly decreased* 60 - 89 mL/min/1.73m2 Mildly to moderately decreased 45 - 59 mL/min/1.73m2 Moderately to severely decreased 30 - 44 mL/min/1.73m2 Severely decreased 15 - 29 mL/min/1.73m2 Kidney Failure < 15 mL/min/1.73m2 *Relative to young adult level Estimated glomerular filtration rate is determined by the 2020 CKD-EPI equation recommended by the National Kidney Foundation (A Unifying Approach to GFR Estimation: Recommendations of the NKF-ASK Task Force on Reassessing the Inclusion of Race in Diagnosing Kidney Disease, JASN 2020). The CKD-EPI equation should not be used for patients with unstable renal function and has not been validated in children and those over 70. Current interpretive data was last reviewed 2021. Blood 04/08/2024 5:36 AM DIRECTOR MEDICAL SURGICAL 04/08/2024 5:47 AM DIRECTOR MEDICAL SURGICAL us Saige Carpenter MD LAB BLOOD ORDERABLES Fi nal Result Performing Organization Address [facility] Co de Phone Number BERNADETTE UGALDE [place]) [address] [place] [address] * (ABNORMAL) Hemoglobin A1c (04/08/2024 5:36 AM DIRECTOR MEDICAL SURGICAL) Hgb A1C 6.6(H) 4.0 - 5.6 % Estimated Average Glucose 143 mg/dL BERNADETTE UGALDE (GENI) Comment: The ADA recommends reporting an estimated Average Glucose (eAG) with all Hemoglobin A1c results using the equation derived from a study of 507 normal and diabetic adults. Minority populations were underrepresented and children were not included. (Diabetes Care 31:0734-4464, 2008). The eAG is not equivalent to a fasting glucose. Blood 04/08/2024 5:36 AM DIRECTOR MEDICAL SURGICAL 04/08/2024 5:46 AM DIRECTOR MEDICAL SURGICAL us Kaylie Kang MD LAB BLOOD ORDERABLES Final Resul t Performing Organization Address [facility] Co de Phone Number BERNADETTE UGALDE ([place]) [address] [place] [address] * (ABNORMAL) Lipid panel (04/08/2024 5:36 AM DIRECTOR MEDICAL SURGICAL) Cholesterol 147 30 - 199 mg/dL Comment: Interpretive Data Ages < or = 19 years Acceptable: <170 mg/dL Borderline high: 170-199 mg/dL High: >or= 200 mg/dL Ages > or = 20 years Desirable: <200 mg/dL Borderline high: 200-239 mg/dL High: >or= 240 mg/dL Literature References: 1. Expert Panel on Integrated Guidelines for Cardiovascular Health and Risk Reduction in Children and Adolescents. Pediatrics 2011;128:S213 2. NCEP Expert Panel. Circulation 2004;110:227 Current Interpretive Data was last revised on 2017. Triglycerides 307(H) <=149 mg/dL [facility] (GENI) Comment: Interpretive Data Ages < or = 9 years Acceptable: <75 mg/dL Borderline high: 75-99 mg/dL High: >or= 100 mg/dL Ages 10 to 20 years Acceptable: <90 mg/dL Borderline high: 90-129 mg/dL High: >or= 130 mg/dL Ages > or = 20 years Desirable: <150 mg/dL Borderline high: 150-199 mg/dL High: 200-499 mg/dL Very high: >or= 499 mg/dL Literature References: 1. Expert Panel on Integrated Guidelines for Cardiovascular Health and Risk Reduction in Children and Adolescents. Pediatrics 2011;128:S213 2. NCEP Expert Panel. Circulation 2004;110:227 Current Interpretive Data was last revised on 2017. HDL 33(L) >=40 mg/dL BERNADETTE DICK) Comment: Interpretive Data Ages < or = 19 years Acceptable: >45 mg/dL Borderline low: 40-45 mg/dL Low: <40 mg/dL Ages > or = 20 years Desirable: >or= 60 mg/dL Low: <40 mg/dL Literature References: 1. Expert Panel on Integrated Guidelines for Cardiovascular Health and Risk Reduction in Children and Adolescents. Pediatrics 2011;128:S213 2. NCEP Expert Panel. Circulation 2004;110:227 Current Interpretive Data was last revised on 2017. LDL, calculated 65 <=129 mg/dL BERNADETTE DICK) Comment: Interpretive Data Ages < or = 19 years Acceptable: <110 mg/dL Borderline high: 110-129 mg/dL High: >or= 130 mg/dL Ages > or = 20 years Optimal: <100 mg/dL Near optimal: 100-129 mg/dL Borderline high: 130-159 mg/dL High: >160 mg/dL Calculated using the Kaveh LDL-C estimating equation. This equation was implemented on 2023. Prior to this date LDL-C was estimated using the Friedewald equation. Literature References: 1. Expert Panel on Integrated Guidelines for Cardiovascular Health and Risk Reduction in Children and Adolescents. Pediatrics 2011;128:S213 2. NCEP Expert Panel. Circulation 2004;110:227 3. Kaveh Bryson et al. WINSTON Cardiol. 2020 August 31;5(5):540-548. doi: 10.1001/jamacardio.2020.0013 Current Interpretive Data was last revised on 2023. Non-HDL Cholesterol 114 mg/dL BERNADETTE UGALDE (GENI) Comment: Interpretive Data Ages < or = 19 years Acceptable: <120 mg/dL Borderline high: 120-144 mg/dL High: >145 mg/dL Ages > or = 20 years When triglycerides are >200 mg/dL, Non-HDL cholesterol is a secondary target of therapy with treatment goals that are 30 mg/dL greater than the LDL cholesterol target. Literature References: 1. Expert Panel on Integrated Guidelines for Cardiovascular Health and Risk Reduction in Children and Adolescents. Pediatrics 2011;128:S213 2. NCEP Expert Panel. Circulation 2004;110:227 Current Interpretive Data was last revised on 2017. Chol/HDL ratio 4 PATRICK UGALDE ([place]) Blood 04/08/2024 5:36 AM DIRECTOR MEDICAL SURGICAL 04/08/2024 5:47 AM DIRECTOR MEDICAL SURGICAL Saige Carpenter MD LAB BLOOD ORDERABLES Fi nal Result Performing Organization Address [facility] Co de Phone Number BERNADETTE UGALDE ([place]) [address] [facility] Department [place] [address] * (ABNORMAL) Diabetic Eye Exam (09/01/2022) Historical Provider HEALTH MAINTENANCE Final Result * Albumin Creatinine Ratio, Urine (05/08/2022) SCRIBED Creatinine, Urine 244.64 - - - EXTERNAL LAB SCRIBED Microalbumin 249.7 - - - EXTERNAL LAB SCRIBED Microalb/Creat Ratio 102 EXTERNAL LAB Urine 05/08/2022 Historical Provider LAB URINE ORDERABLES Suki l Result Performing Organization Address [facility] Co de Phone Number EXTERNAL LAB from Last 3 Months or Most Recently Relevant to Health Maintenance Insurance IDPA [facility] MEDICARE IDPA MEDICARE Advance Directives For more information, please contact: [phone] * Full Code (Latest Code Status on File) Date Activated Date Inactivated Comments 10/06/2024 9:31 AM 10/06/2024 4:57 PM * Full Code Date Activated Date Inactivated Comments 10/06/2024 9:30 AM 10/06/2024 9:31 AM * Full Code Date Activated Date Inactivated Comments 2024 7:10 AM 2024 1:56 PM * Full Code Date Activated Date Inactivated Comments 2024 7:10 AM 2024 7:10 AM * Full Code Date Activated Date Inactivated Comments 04/08/2024 1:34 AM 04/08/2024 9:19 PM Care Teams Multimedia Educational Specialist Relationship Specialty [place] [address] [place] [address] PCP - General 02/16/17 Carlo Al MD [address] [place] [address] Consulting Physician General Surgery 10/21/19
--- OUTSIDE RECORDS SUMMARY | 2024-11-09 12:09 | XMS_ITS ---
Author Organization [facility] Address [address] [place] [address] [place] [address] Care Team Providers Care Corporate Security Officer Name Role Phone Stone Ross Primary Care Provider [phone] Problems Problem Type SNOMED Code ICD Code Onset Dates Problem Status W/U Status Risk Notes Problem CAD (coronary artery disease) (I25.10) Active confirmed Encounters Encounter Location Date Provider Diagnosis [place] [facility] [address] [facility] [address] [place] [address] 07/07/2024 Stone Ross Chronic kidney disea se, stage 3a N18.31 ; Essential (primary) hypertension I10 ; Secondary hyperparathyroidism, not elsewhere classified E21.1 ; Renal osteodystrophy N25.0 ; Proteinuria, unspecified R80.9 ; Vitamin D deficiency, unspecified E55.9 and CAD (coronary artery disease) I25.10 Assessments Encounter Date Diagnosis (ICD Code) Assessment Notes Treatment Notes Treatment Clinical Notes Section Notes 07/07/2024 Chronic kidney disease, stage 3a (ICD-10 - N18.31) 07/07/2024 Essential (primary) hypertension (ICD-10 - I10) 07/07/2024 Secondary hyperparathyroidism , not elsewhere classified (ICD-10 - E21.1) 07/07/2024 Renal osteodystrophy (ICD-10 - N25.0) 07/07/2024 Proteinuria, unspecified (ICD-10 - R80.9) 07/07/2024 Vitamin D deficiency, unspecified (ICD-10 - E55.9) 07/07/2024 CAD (coronary artery disease) (ICD-10 - I25.10) Plan Of Treatment Next Appt Details Provider Name:Stone Ross , 11/17/2024 01:45:00 PM, [address], [place], [address], Progress Notes * HORTENCIA ALMANZADOB:1965 ([age] yo M)Acc No.[id number]:07/07/2024 Patient: HORTENCIA VALENTINO Provider: Alex BENÍTEZ MD, Odell.Analisa.C.P, F.A.S.N. :1965 A ge:59 Y S ex:Male Date:07/07/2024 Address:[address] [place] [address] Subjective: * Chief Complaints: Objective: Assessment: * Assessment: 1. C hronic kidney disease, stage 3a - N18.31 (Primary) 2 . E ssential (primary) hypertension - I10 3 . S econdary hyperparathyroidism, not elsewhere classified - E21.1 4 . R enal osteodystrophy - N25.0 5 . P roteinuria, unspecified - R80.9 6 . V itamin D deficiency, unspecified - E55.9 ? 7 . C AD (coronary artery disease) - I25.10 Plan: * Billing Information: * Visit Code: 88985 Office Visit, Est Pt., Level 5. * Procedure Codes: * Electronic signature of Ava Ross MD on 11/09/2024 at 12:08 PM CDT Sign off status: Pending * Provider: Alex BENÍTEZ MD, Odell.Analisa.C.P, F.A.S.N. Date: 0 07/07/2024 Generated for Printing/Faxing/eTransmitting on: 0 11/09/2024 12:08 PM CDT
--- OUTSIDE RECORDS SUMMARY | 2024-11-09 12:09 | XMS_ITS | Clinical Summary ---
Author Organization [facility] Address [address] [place] [address] Care Team Providers Care Program Associate Name Role Phone Regino Pardo MD Primary Care Provider Stone Ross MD Unavailable [phone] Source Comments [facility],non-owned Affiliates and Associated Physician Practices is amultiple site organization consisting of ambulatory clinics and hospital sitesin [place], [place], [place] and [place]. This disclosure is being madepursuant to the Care Everywhere program and may not contain all information available regarding this patient. Last updated 18.[facility] Allergies Active Allergy Reactions Criticality Noted Date Comments Umeclidinium-Vilanterol Itching Low 04/21/2019 Medications * Be aware that medications may not be up to date on this document. Alwaysverify current medications with the patient. phenytoin ER (DILANTIN) 100 MG capsule Take 100 mg by mouth 2 times daily Active sertraline (ZOLOFT) 50 MG tablet Take 50 mg by mouth once daily Active spironolactone (ALDACTONE) 100 MG tablet Take 100 mg by mouth once daily Active vitamin D, ergocalciferol, (DRISDOL) 62925 units capsule Take 50,000 Units by mouth every 7 days Active sacubitril-vals alphonse (ENTRESTO) 97-103 MG tablet Take 1 tablet by mouth once daily Active aspirin (ASPIRIN) 81 MG chew tablet Take 81 mg by mouth once daily Active calcitriol (ROCALTROL) 0.25 MCG capsule Take 0.25 mcg by mouth once daily Active carBAMazepine (TEGRETOL) 200 MG tablet Take 200 mg by mouth once daily Active carvedilol (COREG) 25 MG tablet Take 25 mg by mouth once daily Active HYDROcodone-chino taminophen (NORCO) 7.5-325 MG tablet Take 1 tablet by mouth once daily Active levETIRAcetam (KEPPRA) 1000 MG tablet Take 1,000 mg by mouth once daily Active metFORMIN CR osmotic 24hr (FORTAMET) 500 MG (OSM) tablet Take 500 mg by mouth once daily Active ferrous sulfate 325 (65 FE) MG tablet Take 325 mg by mouth once daily Active minoxidil (LONITEN) 2.5 MG tablet Take 2.5 mg by mouth once daily Active albuterol HFA (PROAIR HFA) 108 (90 Base) MCG/ACT inhaler Take 2 puffs by mouth as needed Active Blood Glucose Monitoring Suppl (Open [employer] IQ SYSTEM) w/Device KIT 1 kit Active fluticasone propionate (FLONASE) 50 MCG/ACT nasal spray [place] 2 sprays into each nostril once daily Active fish oil/omega-3 fatty acids (PROMEGA;CARDI- OMEGA 3) 1000 MG capsule Take 1,000 mg by mouth 3 times daily with meals Active rosuvastatin (CRESTOR) 40 MG tablet Take 1 tablet by mouth once daily 10/19/2018 Active azelastine (ASTELIN) 0.1 % nasal spray SPRAY ONCE IN EACH NOSTRIL TWICE DAILY 90 mL 1 05/27/2020 Active ipratropium (ATROVENT) 0.03 % nasal spray USE 1 TO 2 SPRAYS IN EACH NOSTRIL THREE TIMES DAILY 30 mL 3 09/24/2021 Active montelukast (Singulair) 10 MG tablet TAKE 1 TABLET BY MOUTH EVERY DAY 90 tablet 3 07/08/2023 Active Active Problems Problem Noted Date Diagnosed Date Acute cholecystitis 01/11/2020 Overview (01/11/2020): Last Assessment & Plan: Diet as tolerates. Bowel regimen as needed. No heavy lifting for 4 weeks. No submerging incisions for 4 weeks. Okay to return to work with light duty. Patient to call back with any further questions or concerns. Arthritis 01/11/2020 Chest pain 01/11/2020 Dyspnea 01/11/2020 Mediastinal mass 01/11/2020 Mild chronic obstructive pulmonary disease 01/10 Periodic limb movement disorder 01/11/2020 Tobacco dependence syndrome 01/11/2020 Class 1 obesity due to exces s calories with serious comorbidity in adult 10/15/2019 Osteoarthritis of left knee 06/06/2019 Community acquired pneumonia of right lung 02/27 Hemoptysis 02/27/2019 Night sweats 02/27/2019 Weight loss 02/27/2019 MICKIE (acute kidney injury) 01/27/2019 Elevated troponin 01/27/2019 Positive D dimer 01/27/2019 Sinus tachycardia 01/27/2019 Hypertensive urgency 09/16/2018 Benign hypertension 09/16/2018 Blood in urine 09/16/2018 Diabetes mellitus 09/16/2018 Diabetic neuropathy 09/16/2018 Disorder of lipid metabolism 09/16/2018 Hematochezia 09/16/2018 Neck pain 09/16/2018 Obstructive sleep apnea syndrome 09/16/2018 Pure hypercholesterolemia 09/16/2018 Seizure disorder 09/16/2018 Tobacco user 09/16/2018 Type 2 diabetes mellitus without complication Uncontrolled type 2 diabetes mellitus 09/16/2018 Vitamin D deficiency 09/16/2018 Moderate persistent asthma 02/07/2018 Major depressive disorder, single episode, moder ate 08/13/2017 Chronic congestive heart failure 05/27/2017 Kidney disorder 05/27/2017 Immunizations Immunization Administration Dates Next Due FLU VACCINE QUAD IIV4 SPLIT 0.25 ML IM 01/01/2018,01/25/2017,01/14/2016,2014 INFLUENZA VACCINE, HIGH-DOSE , QUADR. (FLUZONE HIGH-DOSE QUADRIVALENT; 65Y+), 0.7 ML (HD-IIV4) 02/20/2014 PNEUMOCOCCAL PPSV23 05/03/2012 TDAP (7yrs+) 09/10/2015 Family History Medical History Relation Name Comments Arthritis - Rheumatoid Mother Asthma Mother Diabetes - Type 2 Mother Hyperlipidemia Mother Hypertension Mother Arthritis - Rheumatoid Sister Relation Name Status Comments Mother Sister Social History Tobacco Use Types Packs/Day Years Used Date Smoking Tobacco: Every Day Cigarettes 0.5 36 Smokeless Tobacco: Never Alcohol Use Standard Drinks/Week Comments No 0 (1 standard drink = 0.6 oz pur e alcohol) Sex and Gender Information Value Date Recorded Sex Assigned at Not on file 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 Gender Identity Not on file Sexual Orientation Not on file Last Filed Vital Signs Vital Sign Reading Time Taken Comments Blood Pressure 164/94 01/11/2020 10:09 AM CDT Pulse 67 01/11/2020 10:09 AM CDT Temperature - - Respiratory Rate - - Oxygen Saturation - - Inhaled Oxygen Concentration - - Weight 101.2 kg (223 lb) 09/29/2019 8:59 AM CDT Height 185.4 cm (6' 1) 01/11/2020 10:09 AM CDT Body Mass Index 29.42 09/29/2019 8:59 AM CDT Plan of Treatment Health Maintenance Due Date Last Done Comments COLOGUARD (AGES 45-75) - COLON CA SCREENING 1965 COLON MONITORING 1965 COLONOSCOPY - COLON CA SCREENING 1965 CT COLONOGRAPHY - COLON CA SCREENING 1963 Colorectal Cancer Screening 1965 FIT - COLON CA SCREENING 1963 FLEX SIG - COLON CA SCREENING 1965 MEDICARE AWV 12 MONTHS 1965 HIV SCREENING 1978 HEPATITIS C SCREENING 04/22/1981 ZOSTER VACCINE (1 of 2) 2013 PNEUMOCOCCAL VACCINE 50+ (2 of 2 - PCV) 05/03/2013 05/03/2012 DIABETES RETINOPATHY SCREENING 09/16/2018 DIABETES-FOOT EXAM WITH MONOFILAMENT 09/16/2018 DIABETES-HGB A1C 09/16/2018 DIABETES-SERUM CREATININE 07/12/2020 07/13/2019 Respiratory Syncytial Virus (RSV) Vaccine Pt: or over 60 yrs (1 - Risk 60-74 years 1-dose series) 2023 COVID-19 VACCINE ( - season) 2024 DEPRESSION SCREENING 05/03/2024 DIABETES - URINE PROTEIN SCREENING 05/03/2024 INFLUENZA VACCINE (#1) 2025 9, 01/23/2019, 01/01/2018, Additional history exists DTAP/TDAP/TD VACCINES (2 - Td or Tdap) 09/09/2025 09/10/2015 HEPATITIS B VACCINE Aged Out No longe r eligible based on patient's age to complete this topic HIB VACCINE Aged Out No longer eligi ble based on patient's age to complete this topic HPV VACCINE Aged Out No longer eligi ble based on patient's age to complete this topic MENINGOCOCCAL (Group B) VACCINE SHARED DECISION-MAKING Aged Out No longer eligible based on patient's age to complete this topic MENINGOCOCCAL GROUPS A/C/Y/W VACCINE Aged Out No longer eligible based on patient's age to complete this topic Insurance MEDICAID - OUT OF [facility] MEDICARE MEDICARE MEDICAID - [place] Care Teams Program Associate Relationship Specialty Start Date End Date Regino Pardo MD [address] [place], [place] [phone] PCP - General 08/24/18 [place] [address] [place] [address] PCP - Strive [facility] 08/01/24
--- OUTSIDE RECORDS SUMMARY | 2024-11-09 12:09 | XMS_ITS | Patient Health Record ---
Author Organization [facility] Address [address] [place] [address] Care Team Providers Care Dielectric Press Operator Name Role Phone Stone Ross Primary Care Provider Reason For Referral No Information Medications Medication SIG (Take, Route, Frequency, Duration) Notes Start Date End Date Status Allopurinol 100 MG 1 tablet Orally Once a day; Duration: 90 days 09/15/2024 12/14/2024 Active Vitamin D (Ergocalciferol) 1.25 MG (39131 UT) TAKE 1 CAPSULE BY MOUTH 1 TIME A WEEK; Duration: 91 Unknown Medrol 4 MG 1 tablet with food o r milk Orally every 12 hrs; Duration: 7 days Unknown Calcitriol 0.25 MCG TAKE 1 CAPSULE BY MO UT TWICE DAILY; Duration: 90 Active Problems Problem Type SNOMED Code ICD Code Onset Dates Problem Status W/U Status Risk Notes Problem Secondary hyperparathyroidism (86378080) Secondary hyperparathyroid ism, not elsewhere classified (E21.1) Active confirmed Problem Vitamin D deficiency (27893062) Vitamin D deficiency, unspecified (E55.9) Active confirmed Problem Essential hypertension (34891971) Essential (primary) hypertension (I10) Active confirmed Problem Renal osteodystrophy (34446044) Renal osteodystrophy (N25.0) Active confirmed Problem Proteinuria (60748925) Proteinuria, unspecified (R80.9) Active confirmed Problem Chronic kidney disease stage 3A (disorder) (917311607) Chronic kidney disease, stage 3a (N18.31) Active confirmed Problem Coronary artery disease (47385592) CAD (coronary artery disease) (I25.10) Active confirmed Vital Signs Heart Rate 60 /min 09/15/2024 Respiratory Rate 19 /min 09/15/2024 Oximetry 96 % 09/15/2024 Blood pressure diastolic 80 mm Hg 09/15/2024 Weight-kg 99.25 kg 09/15/2024 Blood pressure systolic 141 mm Hg 09/15/2024 Weight 218.8 lbs 09/15/2024 Encounters Encounter Location Date Provider Diagnosis [facility] [address] [place] [address] 11/19/2023 Stone Ross Chronic kidney disea se, stage 3a N18.31 ; Essential (primary) hypertension I10 ; Secondary hyperparathyroidism, not elsewhere classified E21.1 ; Renal osteodystrophy N25.0 ; Proteinuria, unspecified R80.9 and Vitamin D deficiency, unspecified E55.9 [facility] [address] [place] [address] 01/28/2024 Stone Ross Chronic kidney disea se, stage 3a N18.31 ; Essential (primary) hypertension I10 ; Secondary hyperparathyroidism, not elsewhere classified E21.1 ; Renal osteodystrophy N25.0 ; Proteinuria, unspecified R80.9 and Vitamin D deficiency, unspecified E55.9 [facility] [address] [address] 02/25/2024 Stone Ross Chronic kidney disea se, stage 3a N18.31 ; Essential (primary) hypertension I10 ; Secondary hyperparathyroidism, not elsewhere classified E21.1 ; Renal osteodystrophy N25.0 ; Proteinuria, unspecified R80.9 and Vitamin D deficiency, unspecified E55.9 [facility] [address] [place] [address] 07/07/2024 Stone Ross Chronic kidney disea se, stage 3a N18.31 ; Essential (primary) hypertension I10 ; Secondary hyperparathyroidism, not elsewhere classified E21.1 ; Renal osteodystrophy N25.0 ; Proteinuria, unspecified R80.9 ; Vitamin D deficiency, unspecified E55.9 and CAD (coronary artery disease) I25.10 [facility] [address] [place] [address] 09/15/2024 Stone Ross Chronic kidney disea se, stage 3a N18.31 ; Essential (primary) hypertension I10 ; Secondary hyperparathyroidism, not elsewhere classified E21.1 ; Renal osteodystrophy N25.0 ; Proteinuria, unspecified R80.9 ; Vitamin D deficiency, unspecified E55.9 and CAD (coronary artery disease) I25.10 [facility] [place] [facility] [address] [place] [address] 09/15/2024 Stone Ross [facility] [address] [facility] [address] [place] [address] 11/19/2023 Stone [facility] [address] [address] 01/28/2024 Stone Ross Assessments Encounter Date Diagnosis (ICD Code) Assessment Notes Treatment Notes Treatment Clinical Notes Section Notes 11/19/2023 Chronic kidney disease, stage 3a (ICD-10 - N18.31) 01/28/2024 Chronic kidney disease, stage 3a (ICD-10 - N18.31) 02/25/2024 Chronic kidney disease, stage 3a (ICD-10 - N18.31) 07/07/2024 Essential (primary) hypertension (ICD-10 - I10) 07/07/2024 Chronic kidney disease, stage 3a (ICD-10 - N18.31) 09/15/2024 Chronic kidney disease, stage 3a (ICD-10 - N18.31) 09/15/2024 Essential (primary) hypertension (ICD-10 - I10) 07/07/2024 Secondary hyperparathyroidism , not elsewhere classified (ICD-10 - E21.1) 02/25/2024 Essential (primary) hypertension (ICD-10 - I10) 01/28/2024 Essential (primary) hypertension (ICD-10 - I10) 11/19/2023 Essential (primary) hypertension (ICD-10 - I10) 11/19/2023 Secondary hyperparathyroidism , not elsewhere classified (ICD-10 - E21.1) 01/28/2024 Secondary hyperparathyroidism , not elsewhere classified (ICD-10 - E21.1) 02/25/2024 Secondary hyperparathyroidism , not elsewhere classified (ICD-10 - E21.1) 07/07/2024 Renal osteodystrophy (ICD-10 - N25.0) 09/15/2024 Secondary hyperparathyroidism , not elsewhere classified (ICD-10 - E21.1) 09/15/2024 Renal osteodystrophy (ICD-10 - N25.0) 07/07/2024 Proteinuria, unspecified (ICD-10 - R80.9) 02/25/2024 Renal osteodystrophy (ICD-10 - N25.0) 01/28/2024 Renal osteodystrophy (ICD-10 - N25.0) 11/19/2023 Renal osteodystrophy (ICD-10 - N25.0) 11/19/2023 Proteinuria, unspecified (ICD-10 - R80.9) 01/28/2024 Proteinuria, unspecified (ICD-10 - R80.9) 02/25/2024 Proteinuria, unspecified (ICD-10 - R80.9) 07/07/2024 Vitamin D deficiency, unspecified (ICD-10 - E55.9) 09/15/2024 Proteinuria, unspecified (ICD-10 - R80.9) 09/15/2024 Vitamin D deficiency, unspecified (ICD-10 - E55.9) 07/07/2024 CAD (coronary artery disease) (ICD-10 - I25.10) 02/25/2024 Vitamin D deficiency, unspecified (ICD-10 - E55.9) 01/28/2024 Vitamin D deficiency, unspecified (ICD-10 - E55.9) 11/19/2023 Vitamin D deficiency, unspecified (ICD-10 - E55.9) 09/15/2024 CAD (coronary artery disease) (ICD-10 - I25.10) Plan Of Treatment Next Appt Details Provider Name:Stone Cody , 11/17/2024 01:45:00 PM, [address], [place], [address], Insurance Providers Payer Name Payer Address Payer Phone Subscriber Number Group Number Insured Name Patient Relationship to Insured Coverage Start Date Coverage End Date MEDICARE PART A & b [address] [address] [place] [address] [id number] HORTENCIA ALMANZA Self - patient is the insured
--- OUTSIDE RECORDS SUMMARY | 2024-11-09 12:09 | XMS_ITS | Continuity of Care Document ---
Author Organization [facility] Address [address] [place] [address] Phone Care Team Providers Care Immigration Attorney Name Role Phone Vergara OD, Jefry Unavailable Unavailable Procedures Procedure Date Eye Exam & Treatment No Evidence Of Retinopathy In Prior Year Refraction Eye Exam, New Patient Refraction Advance Directives Directive Yes / No Effective Date File Name No Information Encounters Encounter Description Practice Location Reason(s) For Visit Diagnoses Date Provider Providers Copied on Encounter Merged with [facility], [address] [place] [address] [address], [place], [place], [id number], tel:[phone] [facility] No Information [phone] Vergara OD Jefry. [address] [facility] , [address], [place], [address], [place]. tel:[phone] Referring Provider: Regino Pardo [address] [place] [address] [address], [place], [place], [facility]. tel:[phone] Merged with [facility], [address] [place] [address] [address], [place], [place], [id number], tel:[phone] [facility] No Information [phone] Vergara OD Jefry. [address] [facility] , [address], [place], [address], [place]. tel:[phone] Family History Family Member Type Diagnosis Age At Onset No Information Payers Payer name Insurance type Covered constitution party ID Authoriza tion(s) Medicare [facility] [id number] Medicaid [facility] [id number] Social History Type Description Quantity Date Captured Comments Sex Male Smoking Status No Information Chief Complaint And Reason For Visit No Information Reason For Referral Reason For Referral No Information History Of Present Illness Encounter Date Complaint History Of Prese nt Illness No Information Functional Status Date Functional Assessmen t No Information Instructions Date Instruction Additional Infor mation No Information Assessments Type Assessment Date No Information Patient Care Teams Name Effective Dates (start - stop) Status Members No Information
--- OUTSIDE RECORDS SUMMARY | 2024-11-09 12:09 | XMS_ITS ---
Author Organization [facility] Address [address] [place] [address] Care Team Providers Care Financial Services Intern Name Role Phone Stone Ross Primary Care Provider Medications Medication SIG (Take, Route, Frequency, Duration) Notes Start Date End Date Status Vitamin D (Ergocalciferol) 1.25 MG (05763 UT) TAKE 1 CAPSULE BY MOUTH 1 TIME A WEEK; Duration: 91 Unknown Calcitriol 0.25 MCG 1 capsule Orally Twi ce a day; Duration: 90 days 01/28/2024 01/22/2025 Unknown Medrol 4 MG 1 tablet with food o r milk Orally every 12 hrs; Duration: 7 days Unknown Vital Signs Blood pressure systolic 141 mm Hg 09/16/19 25 Blood pressure diastolic 80 mm Hg 025 Heart Rate 60 /min 09/15/2024 Respiratory Rate 19 /min 09/15/2024 Oximetry 96 % 09/15/2024 Weight 218.8 lbs 09/15/2024 Weight-kg 99.25 kg 09/15/2024 Encounters Encounter Location Date Provider Diagnosis [place] [facility] [address] [facility] [address] [place] [address] 09/15/2024 Stone Ross Chronic kidney disea se, stage 3a N18.31 ; Essential (primary) hypertension I10 ; Secondary hyperparathyroidism, not elsewhere classified E21.1 ; Renal osteodystrophy N25.0 ; Proteinuria, unspecified R80.9 ; Vitamin D deficiency, unspecified E55.9 and CAD (coronary artery disease) I25.10 Assessments Encounter Date Diagnosis (ICD Code) Assessment Notes Treatment Notes Treatment Clinical Notes Section Notes 09/15/2024 Chronic kidney disease, stage 3a (ICD-10 - N18.31) 09/15/2024 Essential (primary) hypertension (ICD-10 - I10) 09/15/2024 Secondary hyperparathyroidism , not elsewhere classified (ICD-10 - E21.1) 09/15/2024 Renal osteodystrophy (ICD-10 - N25.0) 09/15/2024 Proteinuria, unspecified (ICD-10 - R80.9) 09/15/2024 Vitamin D deficiency, unspecified (ICD-10 - E55.9) 09/15/2024 CAD (coronary artery disease) (ICD-10 - I25.10) Plan Of Treatment Next Appt Details Follow Up: 11/17/2024 @ 1:45 , Reason: Chronic Kidney Disease Provider Name:Stone Ross , 11/17/2024 01:45:00 PM, [address], [place], [address], Progress Notes * HORTENCIA ALMANZADOB:1965 ([age] yo M)Acc No.[id number]:09/15/2024 Progress Notes Patient: HORTENCIA VALENTINO Provider: Alex BENÍTEZ MD, F.A.C.P, F.A.S.N. :1965 A ge:59 Y S ex:Male Date:09/15/2024 Address:[address] [place] [address] Subjective: * Chief Complaints: * * Medical History: * Medications: U nknown Medrol 4 MG Tablet Therapy Pack 1 tablet with food or milk Orally every 12 hrs , Unknown Calcitriol 0.25 MCG Capsule 1 capsule Orally Twice a day , stop date 01/22/2025, Unknown Vitamin D (Ergocalciferol) 1.25 MG (98376 UT) Capsule TAKE 1 CAPSULE BY MOUTH 1 TIME A WEEK Objective: * Vitals: I nhaled Oxygen Flow Rate: 96, BP:141/80mm Hg, HR:60/min, RR:19/min, Oxygen sat %:96%, Wt:218.8lbs, Wt-k.25. Assessment: * Assessment: 1. C hronic kidney [...] (coronary artery disease) - I25.10 Plan: * Treatment: * Follow Up: 0 11/17/2024 @ 1:45 (Reason: Chronic Kidney Disease) * Billing Information: * Visit Code: 38337 Office Visit, Est Pt., Level 4. * Procedure Codes: * Electronic signature of Ava Ross MD on 11/09/2024 at 12:08 PM CDT Sign off status: Pending * Provider: Alex BENÍTEZ MD, F.A.C.P, F.A.S.N. Date: 0 09/15/2024 Generated for Printing/Faxing/eTransmitting on: 0 11/09/2024 12:08 PM CDT
--- OUTSIDE RECORDS SUMMARY | 2024-11-09 12:09 | XMS_ITS | Data Portability ---
Author Organization [place] [facility], Main Office Address [address] [place] [address] Assessment Encounter Date Assessment Date Assessment LastModified by Organization Details LastModified Time 12/14/2023 12/14/2023 Time spent with patient included: preparing to see patient by reviewing tests, obtaining and reviewing history, medical examination and evaluation, counseling and educating the patient, ordering medications and tests, documenting clinical information in EHR, independently interpreting results and communicating results to the patient for a total of 45 minutes. Not available 12/14/2023 12:16:34 06/15/2024 06/15/2024 Time spent with patient included: preparing to see patient by reviewing tests, obtaining and reviewing history, medical examination and evaluation, counseling and educating the patient, ordering medications and tests, documenting clinical information in EHR, independently interpreting results and communicating results to the patient for a total of 25 minutes. Not available 06/15/2024 11:28:04 08/17/2024 08/17/2024 Time spent with patient included: preparing to see patient by reviewing tests, obtaining and reviewing history, medical examination and evaluation, counseling and educating the patient, ordering medications and tests, documenting clinical information in EHR, independently interpreting results and communicating results to the patient for a total of 25 minutes. Not available 08/17/2024 10:51:10 Plan of Treatment Reminders Order Date Submit Date Provider Last Modified By Organization Details Last Modified Time Details Appointments Any 15 025 09:00AM Licha Combs NP Not available Not available Not available Lab None record ed. Referral None record ed. Procedures None record ed. Surgeries None record ed. Imaging None record ed. Medication Orders None record ed. Patient TargetsNo targets recorded. Patient InstructionsNo instructions recorded. Reason for Referral None Reported. Problems Name Problem SNOMED Code Status Onset Date Resolution Date Notes Provider Name and Address Organization Details Recorded Time History of left total knee replacemen t 7760242906487 105 Active 2019 Not Available [facility] 3 02:50:44 History of total knee arthroplas ty 2909223531437 Active 2019 Not Available [facility] 3 02:50:44 Hyperchole sterolemia 73525819 Active Not Available [facility] 3 02:50:44 Chronic obstructiv e pulmonary disease 80109910 Active Not Available [facility] 3 02:50:44 Disorder of thyroid gland 15615304 Active Not Available [facility] 3 02:50:44 Osteoarthr itis of knee 889383592 Active 2019 Not Available [facility] 3 02:50:44 Dyspnea 246877800 Active Not Available [facility] 3 02:50:44 Mild chronic obstructiv e pulmonary disease 081481198 Active Not Available [facility] 3 02:50:44 Osteoarthr itis of left knee joint 6427932566521 09 Active 2019 Not Available [facility] 3 02:50:44 Blood in urine 31570406 Active Not Available [facility] 3 02:50:44 Arthritis 0719676 Active Not Available [facility] 3 02:50:44 Hypertensi ve disorder 80063080 Active Not Available [facility] 3 02:50:44 Periodic limb movement disorder 248636853 Active Not Available [facility] 3 02:50:44 Chronic recurrent sinusitis 871920827 Active 2021 Not Available [facility] 3 02:50:44 Diabetes mellitus 47782265 Active Not Available [facility] 3 02:50:45 Obstructiv e sleep apnea syndrome 99529373 Active Not Available [facility] 3 02:50:45 Congestion of nasal sinus 78176659 Active 2021 Not Available [facility] 3 02:50:45 Fatigue 71115502 Active Not Available [facility] 3 02:50:45 Ex-smoker 9958779 Active 2019 Not Available [facility] 3 02:50:45 Tobacco dependence syndrome 13355305 Active Not Available [facility] 3 02:50:45 Seizure 78026918 Active Not Available [facility] 3 02:50:45 Sensorineu ral hearing loss 55051056 Active 2024 Altagracia Sheffield RN null, [facility] [facility] 5 11:57:37 Dysphagia 34923115 Active 2024 Altagracia Sheffield RN null, [facility] 5 11:57:42 Bilateral tinnitus 8323903890651 Active 2024 Jericho Arroyo MD [address] [place] [address], [id number] , [facility] 5 11:59:36 Problem Notes None recorded. Procedures Surgical History Date Name Laterality Status Provider Name and Address Organization Details Recorded Time Hemorrhoidectomy completed Noelle keen MA [facility] 06/15/2024 10:59:54 hernia repair completed Karenmike Allison [facility] 08/24/2024 11:39:03 Total knee arthroplasty completed Karen Estefany [facility] 08/24/2024 11:39:13 excision of lymph node [facility] 08/24/2024 11:39:53 Imaging Results None recorded. Procedure Notes None recorded. Medical Equipment None Reported. Allergies Allergen ID Allergen Name Allergen Category Reaction Reaction Severity Criticality Documentation Date Start Date Code Code System Note Provider Name and Address Organization Details Recorded Time 4535 Anoro medicatio n itching Not available Not available 07/01/2022 90062 20 RxNorm Not Available [facility] 02:58:59 Medications Name Sig Start Date Stop Date Status Note LastModified by Organization Details LastModified Time amoxicilli n 500 mg capsule 02/24 completed Not Available Not Available Not Available furosemide 40 mg tablet 02/24 completed Not Available Not Available Not Available carvedilol 25 mg tablet 04/15 completed Not Available Not Available Not Available nitrofuran toin macrocryst al 50 mg capsule 06/15 completed Not Available Not Available Not Available ropinirole 1 mg tablet Take 1 tablet every day by oral route. 02/24 completed Not Available Not Available Not Available nabumetone 750 mg tablet 02/24 completed Not Available Not Available Not Available azithromyc in 250 mg tablet FOLLOW PACKAGE DIRECTIO NS 04/15 completed Not Available Not Available Not Available nifedipine ER 90 mg tablet,ext ended release TAKE 1 TABLET BY MOUTH EVERY DAY active Not Available Not Available No t Available metoprolol succinate ER 50 mg tablet,ext ended release 24 hr active Not Available Not Available Not Available hydrocodon e 5 mg-acetami nophen 325 mg tablet TAKE 1 TABLET BY MOUTH EVERY 6 HOURS FOR UP TO 7 DAYS NEEDED FOR PAIN 06/15 completed Not Available Not Available Not Available senna 8.6 mg tablet TAKE 2 TABLETS BY MOUTH AT NIGHT ON A TWICE WEEKLY BASIS active Not Available Not Available No t Available ondansetro n HCl 4 mg tablet active Not Available Not Available Not Available spironolac tone 100 mg tablet TAKE 1 TABLET BY MOUTH EVERY DAY active Not Available Not Available No t Available clonidine HCl 0.3 mg tablet 02/24 completed Not Available Not Available Not Available valsartan 80 mg tablet 02/24 completed Not Available Not Available Not Available meclizine 12.5 mg tablet 12/13 completed Not Available Not Available Not Available phenytoin sodium extended 100 mg capsule TAKE 2 CAPSULES BY MOUTH TWICE DAILY active Not Available Not Available No t Available chlorthali done 25 mg tablet TAKE 1 TABLET BY MOUTH EVERY DAY active Not Available Not Available No t Available amlodipine 5 mg tablet Take 1 tablet every day by oral route. 10/30 completed Not Available Not Available Not Available ciprofloxa lonny 500 mg tablet TAKE 1 TABLET BY MOUTH TWICE DAILY 06/15 completed Not Available Not Available Not Available sulfametho xazole 800 mg-trimeth oprim 160 mg tablet TAKE 1 TABLET BY MOUTH EVERY 12 HOURS AROUND THE CLOCK FOR 5 DAYS 06/16 completed Not Available Not Available Not Available peg-electr olyte solution 420 gram oral solution 02/24 completed Not Available Not Available Not Available minoxidil 2.5 mg tablet TAKE 2 TABLETS BY MOUTH TWICE DAILY DIRECTED 12/13 completed Not Available Not Available Not Available sildenafil 100 mg tablet Take 1 TABLET BY MOUTH 1 HOUR PRIOR TO SEXUAL ACTIVITY DIRECTED , NOT TO EXCEED 1 IN 24 HOURS. active Not Available Not Available No t Available glimepirid e 2 mg tablet 12/13 completed Not Available Not Available Not Available carvedilol 3.125 mg tablet active Not Available Not Available Not Available fenofibrat e micronized 134 mg capsule 02/24 completed Not Available Not Available Not Available glimepirid e 1 mg tablet 08/23 completed Not Available Not Available Not Available carbamazep ine 200 mg tablet TAKE 1 TABLET BY MOUTH THREE TIMES DAILY active Not Available Not Available No t Available oxycodone- acetaminop hen 5 mg-325 mg tablet 06/15 completed Not Available Not Available Not Available potassium chloride ER 20 mEq tablet,ext ended release(pa rt/cryst) 1 bid 12/13 completed Not Available Not Available Not Available famotidine 20 mg tablet TAKE 1 TABLET BY MOUTH DAILY FOR HEARTBUR N active Not Available Not Available No t Available nifedipine ER 60 mg tablet,ext ended release 24 hr TAKE 1 TABLET BY MOUTH EVERY DAY 12/13 completed Not Available Not Available Not Available tamsulosin 0.4 mg capsule 02/24 completed Not Available Not Available Not Available ropinirole 0.25 mg tablet Take 1 tablet 3 times a day by oral route. active 1 tablet 2 hrs hsX7d, 2 tabs 2 hrs hsX7d, 3 tabs 2 hrs hsX7d, 4tabs 2 hrs hsX7d Not Available Not Available Not Available OneTouch Ultra Test strips TEST THREE TIMES DAILY NEEDED active Not Available Not Available No t Available amlodipine 10 mg tablet TAKE 1 TABLET BY MOUTH DAILY 06/15 completed Not Available Not Available Not Available hydrocodon e 7.5 mg-acetami nophen 325 mg tablet TAKE 1 TABLET BY MOUTH EVERY 6 HOURS active Not Available Not Available No t Available chlorproma zine 25 mg tablet TAKE 1 TABLET BY MOUTH EVERY 6 TO 8 HOURS NEEDED DIRECTED FOR HICCUPS active Not Available Not Available No t Available hydrochlor othiazide 12.5 mg capsule 02/24 completed Not Available Not Available Not Available gabapentin 300 mg capsule TAKE 1 CAPSULE BY MOUTH EVERY DAY DIRECTED active Not Available Not Available No t Available montelukas t 10 mg tablet TAKE 1 TABLET BY MOUTH EVERY DAY active Not Available Not Available No t Available hydralazin e 50 mg tablet active Not Available Not Available Not Available levetirace carter 750 mg tablet 02/24 completed Not Available Not Available Not Available furosemide 20 mg tablet qd 10/30 completed Not Available Not Available Not Available ergocalcif raffy (vitamin D2) 1,250 mcg (50,000 unit) capsule TAKE ONE CAPSULE BY MOUTH ONCE A WEEK active Not Available Not Available No t Available azelastine 137 mcg (0.1 %) nasal spray SPRAY ONCE IN EACH NOSTRIL TWICE DAILY 06/15 completed Not Available Not Available Not Available ibuprofen 600 mg tablet 02/24 completed Not Available Not Available Not Available cefuroxime axetil 500 mg tablet 04/21 completed Not Available Not Available Not Available levofloxac in 500 mg tablet 02/24 completed Not Available Not Available Not Available methylpred nisolone 4 mg tablets in a dose pack FOLLOW PACKAGE DIRECTIO NS 06/16 completed Not Available Not Available Not Available Phenytek 200 mg capsule TAKE ONE CAPSULE BY MOUTH ONCE DAILY active Not Available Not Available No t Available lisinopril 40 mg tablet 02/24 completed Not Available Not Available Not Available fluticason e propionate 50 mcg/actuat ion nasal spray,susp ension SHAKE LIQUID AND USE 2 SPRAYS IN EACH NOSTRIL EVERY DAY DIRECTED 12/13 completed Not Available Not Available Not Available metformin ER 500 mg tablet,ext ended release 24 hr TAKE 2 TABLETS BY MOUTH EVERY DAY IN THE MORNING 12/13 completed Not Available Not Available Not Available sertraline 50 mg tablet TAKE 1 TABLET BY MOUTH EVERY DAY active Not Available Not Available No t Available calcitriol 0.25 mcg capsule TAKE 1 CAPSULE BY MOUTH TWICE DAILY active Not Available Not Available No t Available ipratropiu m bromide 21 mcg (0.03 %) nasal spray USE 1 TO 2 SPRAYS IN EACH NOSTRIL THREE TIMES DAILY 12/13 completed Not Available Not Available Not Available spironolac tone 50 mg tablet 02/24 completed Not Available Not Available Not Available diazepam 5 mg tablet 06/15 completed Not Available Not Available Not Available amoxicilli n 875 mg-potassi um clavulanat e 125 mg tablet active Not Available Not Available Not Available azithromyc in 500 mg tablet 10/30 completed Not Available Not Available Not Available Novolog FlexPen U-100 Insulin aspart 100 unit/mL (3 mL) subcutaneo us ADMINIST ER 17 UNITS UNDER THE SKIN THREE TIMES DAILY BEFORE MEALS 06/15 completed Not Available Not Available Not Available cyclobenza micaela 5 mg tablet TAKE 1 TABLET BY MOUTH THREE TIMES DAILY FOR 14 DAYS DIRECTED 12/13 completed Not Available Not Available Not Available Tylenol 8 Hour 650 mg tablet,ext ended release Take 2 tablets every 8 hours by oral route. 08/24 completed Not Available Not Available Not Available rosuvastat in 40 mg tablet TAKE 1 TABLET BY MOUTH EVERY DAY DIRECTED active Not Available Not Available No t Available Spiriva with HandiHaler 18 mcg and inhalation capsules Inhale 1 capsule every day by inhalati on route. 02/24 completed Not Available Not Available Not Available nitrofuran toin monohydrat e/macrocry stals 100 mg capsule 06/15 completed Not Available Not Available Not Available Gas Relief Extra Strength 125 mg chewable tablet TAKE 1 TABLET BY MOUTH FOUR TIMES DAILY NEEDED active Not Available Not Available No t Available Boostrix Tdap 2.5 Lf unit-8 mcg-5 Lf/0.5 mL intramuscu lar suspension 02/24 completed Not Available Not Available Not Available aspirin qd 2018 active Not Available Not Available Not Avai lable Fish Oil qd 12/13 completed Not Available Not Available Not Available ferrous sulfate 1 tab every day 11/25 completed Not Available Not Available Not Available Metamucil 08/17 completed Not Available Not Available Not Available PreserVisi on AREDS 1 bid 2018 active Not Available Not Available Not Avai lable levetirace carter 1,000 mg tablet TAKE 1 AND 1/2 TABLETS BY MOUTH TWICE DAILY active Not Available Not Available No t Available ProAir HFA 90 mcg/actuat ion aerosol inhaler Inhale 2 puffs every 6 hours by inhalati on route. 02/24 completed Not Available Not Available Not Available FeroSul 325 mg (65 mg iron) tablet TAKE 1 TABLET BY MOUTH EVERY DAY 08/13 /2024 completed Not Available Not Available Not Available Vimpat 50 mg tablet 02/24 completed Not Available Not Available Not Available Zyrtec 10 mg capsule Take 1 capsule every day by oral route. 2018 active Not Available Not Available Not Avai lable Suprep Bowel Prep Kit 17.5 gram-3.13 gram-1.6 gram oral solution MIX AND DRINK DIRECTED 06/16 completed Not Available Not Available Not Available Xarelto 10 mg tablet active Not Available Not Available No t Available Stimulant Laxative Plus 8.6 mg-50 mg tablet TAKE 2 TABLET BY MOUTH TWICE DAILY active Not Available Not Available No t Available Anoro Ellipta 62.5 mcg-25 mcg/actuat ion powder for inhalation 10/30 completed Not Available Not Available Not Available Stiolto Respimat 2.5 mcg-2.5 mcg/actuat ion solution for inhalation Inhale 2 puffs every day by inhalati on route. 12/13 completed Not Available Not Available Not Available Entresto 97 mg-103 mg tablet TAKE 1 TABLET BY MOUTH TWICE DAILY active Not Available Not Available No t Available Narcan 4 mg/actuati on nasal spray SPRAY ONCE IN ONE NOSTRIL IF NEEDED FOR OPIOID OVERDOSE . MAY REPEAT ONCE IN OTHER NOSTRIL IN 2 MINUTES 12/13 completed Not Available Not Available Not Available Basaglar KwikPen U-100 Insulin 100 unit/mL (3 mL) subcutaneo us ADMINIST ER 50 UNITS UNDER THE SKIN EVERY NIGHT active Not Available Not Available No t Available Fiasp FlexTouch U-100 Insulin 100 unit/mL (3 mL) subcutaneo us pen ADMINIST ER 15 UNITS UNDER THE SKIN THREE TIMES DAILY BEFORE MEALS active Not Available Not Available No t Available Shingrix (PF) 50 mcg/0.5 mL intramuscu lar suspension , kit ADMINIST ER 0.5ML IN THE MUSCLE DIRECTED 08/23 completed Not Available Not Available Not Available BD Tess 2nd Gen Pen Needle 32 gauge x 32 USE FOUR TIMES DAILY active Not Available Not Available No t Available OneTouch Delica Plus Lancet 33 gauge USE TO TEST BLOOD SUGAR THREE TIMES DAILY active Not Available Not Available No t Available albuterol sulf 90 mcg/actuat ion breath activated powder inhaler,se nsor Inhale 2 puffs every 4 hours by inhalati on route. 11/25 completed Not Available Not Available Not Available Fluzone Quad (PF) 60 mcg (15 mcg x 4)/0.5 mL IM syringe ADMINIST ER 0.5ML IN THE MUSCLE DIRECTED 08/23 completed Not Available Not Available Not Available omega 3 1,000 mg-dha 250 mg-epa 750 mg/5 mL oral liquid Take by oral route. active Not Available Not Available No t Available Vitals Date Recorded Body height Body mass index (BMI) Body weight Body temperature Heart rate Oxygen saturation Oxygen saturation in Arterial blood by Pulse oximetry Systolic And Diastolic Provider Name and Address Organization Details Last Updated DateTime 5 185.42 cm 27.7 kg/m2 04902.4 g 98.4 [degF] 79 /min 95 % 95 % 128/68 mm[Hg] Noelle Akhtar MA [facility] [employer] [facility] 5 11:01:29 Date Recorded Body height Body mass index (BMI) Body weight Heart rate Oxygen saturation Oxygen saturation in Arterial blood by Pulse oximetry Systolic And Diastolic Provider Name and Address Organization Details Last Updated DateTime 5 185.42 cm 28.6 kg/m2 49629.5 4 g 72 /min 95 % 95 % 120/84 mm[Hg] Noelle Akhtar MA [facility] [employer] [facility] 5 10:09:35 Date Recorded Body height Body mass index (BMI) Body weight Body temperature Provider Name and Address Organization Details Last Updated DateTime 08/24/2024 185.42 cm 28.3 kg/m2 46452.2 g 97.1 [degF] Karen Allison [facility] 08/24/2024 11:36:56 Date Recorded Body height Body mass index (BMI) Body weight Body temperature Heart rate Oxygen saturation Oxygen saturation in Arterial blood by Pulse oximetry Systolic And Diastolic Provider Name and Address Organization Details Last Updated DateTime 4 185.42 cm 30.2 kg/m2 536797. 65 g 98.2 [degF] 72 /min 95 % 95 % 138/70 mm[Hg] Noelle Akhtar MA [facility] [employer] [facility] 4 11:36:26 Date Recorded Body height Body weight Body temperature Heart rate Oxygen saturation Oxygen saturation in Arterial blood by Pulse oximetry Systolic And Diastolic Provider Name and Address Organization Details Last Updated DateTime 3 185.42 cm 668901. 58 g 97.9 [degF] 74 /min 97 % 97 % 132/80 mm[Hg] April Stock RN [place] [facility] 3 10:24:18 Social History Question Answer Notes LastModified by Organizat ion Details LastModified Time Tobacco Smoking Status Current Every Day Smoker Not Available [facility] 07/01/2022 02:30:48 Do You Have An Advance Directive? No [id number] Information not available 07/01/2022 What Is Your Level Of Caffeine Consumption? Occasional [id number] Information not available 07/01/2022 How Much Tobacco Do You Chew? None [id number] Information not available 07/01/2022 In The 14 Days Before Symptom Onset, Have You Had Close Contact With A Laboratory-confir med COVID-19 While That Case Was Ill? No [id number] Information not available 07/01/2022 In The 14 Days Before Symptom Onset, Have You Had Close Contact With A Person Who Is Under Investigation For COVID-19 While That Person Was Ill? No [id number] Information not available 07/01/2022 What Type Of Diet Are You Following? REGULAR [id number] Information not available 07/01/2022 Which Illicit Or Recreational Drugs Have You Used? None [id number] Information not available 07/01/2022 Do You Have An Electrostatic Air Filter? No [id number] Information not available 07/01/2022 Do You Have A Humidifier? Yes Doesn't Use It [id number] Information not available 07/01/2022 What Was The Date Of Your Most Recent Tobacco Screening? 08/24/2024 [email or web address] Information not available 08/24/2024 Do You Have Any Pets? Yes Birds [id number] Information not available 07/01/2022 Do You Use Your Seat Belt Or Car Seat Routinely? Yes Information not available 06/15/2024 Do You Have Smoke And Carbon Monoxide Detectors In Your Home? Yes Information not available 12/14/2023 At What Age Did You Start Smoking Tobacco? 13 [id number] Information not available 07/01/2022 Are You Passively Exposed To Smoke? Yes Information no t available 12/14/2023 How Much Tobacco Do You Smoke? 0.5 PPD [id number] Information not available 07/01/2022 Do You Use Sunscreen Routinely? No Information not available 12/14/2023 Have You Recently Traveled Abroad? No Information not available 12/14/2023 Sex: Male Functional Status Question Answer Note LastModified by Organizat ion Details LastModified Time Do you use any illicit or recreational drugs? No [id number] Information not available 07/01/2022 What is your level of alcohol consumption? None [id number] Information not available 07/01/2022 Do you or have you ever used smokeless tobacco? Never used smokeless tobacco [id number] Information not available 07/01/2022 Have you been exposed to chemicals or toxins? not that aware of Information not available 06/15/2024 What is your occupation? disability [id number] Information not available 07/01/2022 Do you or have you ever used e-cigarettes or vape? Never used electronic cigarettes [id number] Information not available 07/01/2022 What is your exercise level? Occasional [id number] Information not available 07/01/2022 Mental Status Question Answer Note LastModified by Organization D etails LastModified Time Do you feel stressed (tense, restless, nervous, or anxious, or unable to sleep at night)? [id number] Information not available 06/15/2024 Family History Nothing Reported Notes:GRANDSON TONSELITIS Medical History Condition Response USE OF BLOOD THINNERS Y DIABETES, TYPE Y HEART DISEASE/HEART PROBLEMS Y AIDS/HIV N ALLERGIES/HAYFEVER Y LUNG DISEASE/DISORDER Y COPD Y HYPERTENSION Y CANCER: SPECIFY Y ANESTHESIA COMPLICATIONS N ANEMIA/BLOOD DISORDER Y EAR OR HEARING PROBLEMS N STROKE/TIA N Past Encounters Encounter ID Performer Location Encounter Start Date Encounter Closed Date Diagnosis/Indication Diagnosis SNOMED-CT Code Diagnosis ICD10 Code Diagnosis Note [id number] Diana Carrero, MARINE ENGINEER-BC [facility] [address] [address] 07/15/2020 00:00:00 07/15/2020 16:55:15 [id number] [facility] [place] [address] [address] 08/23/2020 00:00:00 08/24/2020 17:09:45 [id number] [facility] [place] [address] [place] [address] 11/25/2020 00:00:00 11/25/2020 16:27:49 [id number] [facility] [place] [address] [place] [address] 04/30/2021 00:00:00 04/30/2021 13:05:11 [id number] RADAMES Welch [facility] [place] [address] [place] [address] 04/15/2022 00:00:00 04/15/2022 19:00:59 [id number] RADAMES Welch [facility] [place] [address] [place] [address] 06/16/2022 00:00:00 06/16/2022 11:16:06 [id number] RADAMES Welch [facility] [place] [address] [place] [address] 12/14/2022 10:20:55 12/15/2022 10:23:56 Obstructive sleep apnea syndrome 45502227 G47.33 Study 12/2014 with AHI 53.9.Repea t study 2018 with best pressure 14.PLMS with arousal 3.5/hourRe ebony on APAP 12-18 with median pressure 13AHI is 2.636.7% use greater than 4 hours in the last 30 daysESS 12 todayDiscu ssed the risks of uncorrecte d MERCEDES, including deathDiscu ssed oral appliance and Inspire as alternativ es to PAP, he declines referral todayOSA is well correctedE ncouraged 100% compliance with all sleepFollo w with PCM for labsAdvise d good sleep habits and patterns:- Set a goal for at least 7 to 8 hours of sleep time per day.-Use the bed mainly for sleep and to go to bed only when tired. If unable to fall asleep after 30 minutes, patient should get out of bed but should not engage in any activity that requires sustained mental alertness. -Maintain a regular bedtime and wake-up time even on weekends-A void excessive naps during the daytime. If a nap is necessary, limit it to no more than 30 minutes.-M inimize environmen randy noise, bright lights, and extremes in bedroom temperatur e.-Avoid alcohol, caffeinate d beverages, and nicotine products for at least 6 hours prior to bedtime.-A void strenuous exercise and large meals for at least 4 hours prior to bedtime.He is aware of supply cleaning and reordering .Discussed reportable signs and symptomsRT C in one year, PRN for concerns Hypertensive disorder 38 [id number] I10 Well controlled BP log for PCM [id number] Licha Combs NP [facility] [address] [address] 12/14/2023 11:10:58 12/15/2023 07:46:48 Obstructive sleep apnea syndrome [id number] G47.33 Reviewed the compliance report and it fits with patient noting no filter and not using the CPAP for months. Long discussion with patient if having trouble to call office sherly so this does not happen again.Foll ow with Primary for labsDiscus sed sleep hygeineAdv ised good sleep habits and patterns:- Set a goal for at least 7 to 8 hours of sleep time per day-Use the bed mainly for sleep and to go to bed only when tired. If unable to fall asleep after 30 minutes, patient should get out of bed but should not engage in any activity that requires sustained mental alertness. -Maintain a regular bedtime and wake-up time even on weekends or day off of work.-Avoi d excessive naps during the daytime. If a nap is necessary, limit to no more than 30 minutes.-M inimize enviroment al noise, bright lights, and extremitie s in bedroom temperatur es.-Avoid alcohol, caffeinate d beverages, and nicotine products for at least 6 hours prior to bedtime.-A void strenuous exercise and large meals for at least 4 hours prior to bedtime.-D iscussed reportable signs and symptoms of concernRec ommend new machine at 5 year sara, plans to repeat home sleep study as needed with changes in condition. He will follow-up in 6 months for compliance . [id number] Licha Combs NP [facility] [place] [address] [facility], [facility] [address] [place] [address] 06/15/2024 10:34:26 06/19/2024 16:24:21 Obstructive sleep apnea syndrome [id number] G47.33 Reviewed the compliance report-irma bland still hasn't got the supplies-chelita mckeon was given a physical copy of the order to take to the DME to get the needed supplies. He notes he does want to use the CPAP. Heis to call if he has any issues.ESS -18Follow with Primary for labsDiscus sed sleep hygeineAdv ised good sleep habits and patterns:- Set a goal for at least 7 to 8 hours of sleep time per day-Use the bed mainly for sleep and to go to bed only when tired. If unable to fall asleep after 30 minutes, patient should get out of bed but should not engage in any activity that requires sustained mental alertness. -Maintain a regular bedtime and wake-up time even on weekends or day off of work.-Avoi d excessive naps during the daytime. If a nap is necessary, limit to no more than 30 minutes.-M inimize enviroment al noise, bright lights, and extremitie s in bedroom temperatur es.-Avoid alcohol, caffeinate d beverages, and nicotine products for at least 6 hours prior to bedtime.-A void strenuous exercise and large meals for at least 4 hours prior to bedtime.-D iscussed reportable signs and symptoms of concernRec ommend new machine at 5 year sara, plans to repeat home sleep study as needed with changes in condition. He will follow-up in 2 months for compliance . Body mass index 25-29 - overweight [id number] Z68.27 Encourage healthy diet and exercise to improve weightdisc ussed weight effect on sleep and sleep apnea [id number] Licha Combs NP [facility] [place] [address] [facility] [address] [place] [address] 08/17/2024 09:45:17 08/22/2024 15:38:43 Obstructive sleep apnea syndrome [id number] G47.33 Patient has [employer] Station2 auto PAP since 06/05/2020o wnload shows 28.1% compliance with use of greater than 4 hoursAPAP is set at 12-18 cm Y2ZUget/sl eep study while on PAP reviewedAH I was well corrected at 1.3ESS-16A dvised importance of 100% compliance with all sleep-he is aware risk of with not usingFollo w with Primary for labsDiscus sed sleep hygeineAdv ised good sleep habits and patterns:- Set a goal for at least 7 to 8 hours of sleep time per day-Use the bed mainly for sleep and to go to bed only when tired. If unable to fall asleep after 30 minutes, patient should get out of bed but should not engage in any activity that requires sustained mental alertness. -Maintain a regular bedtime and wake-up time even on weekends or day off of work.-Avoi d excessive naps during the daytime. If a nap is necessary, limit to no more than 30 minutes.-M inimize enviroment al noise, bright lights, and extremitie s in bedroom temperatur es.-Avoid alcohol, caffeinate d beverages, and nicotine products for at least 6 hours prior to bedtime.-A void strenuous exercise and large meals for at least 4 hours prior to bedtime.-D iscussed reportable signs and symptoms of concernRec ommend new machine at 5 year sara, plans to repeat home sleep study as needed with changes in condition. f/u 6 months for compliance Body mass index 25-29 - overweight [id number] Z68.27 Encourage healthy diet and exercise to improve weightdisc ussed weight effect on sleep and sleep apnea [id number] Jericho Arroyo MD [facility] [place] [address] [place] [address] 08/24/2024 11:32:37 09/04/2024 07:11:35 Bilateral tinnitus [id number] 102 H93.13 Dysphagia [id number] R13.1 0 Health Concerns Section Related Observation LastModified by Organization Detai ls LastModified Time None Recorded Concern Status LastModified by Organization Details LastModified Time None Recorded Advance Directives Directive N: Payers Insurance Date Sequence Insurance Name Policy Number Policy Moore Covered Member ID Moore Member ID Guarantor Name 09/04/2024 2 [facility] (MEDICAID REPLACEMENT - HMO) [id number] Compa Camarena [id number] Compa Camarena 08/14/2024 1 [place] Compa Camarena [id number] Compa Camarena 12/14/2023 2 [place]: [facility] Compa Camarena [id number] Compa Camarena Notes Date Note Type Note Provider Name and Address Organization Details Recorded Time 12/14/2022 text/html Mr Camarena present s today to follow up on [facility], new PAP machine from recall, chronic congestion, fatigue, PLMDHe has been using PAP as compliantly as possible with chronic sinus issuesHis sleep is fairly restful with useWakes about 1-2x nightly with nocturia, this is unchangedDenies xerostomia and morning headachesHad some changes in vision and fatigue, he ended up hospitalized for glucose >1000 at that time.Fatigue improved with glucose controlHe remains on azelastine, flonase, ipratropium nasal spray and saline nasal rinses - follows ENTHe is using an oral full face mask.He denies GERDHis blood pressure has been well controlled.Continues to smoke about 1/2 PPD Diana Carrero, [facility] [address] [facility], [facility] [address], [place], [address], [facility] 12/14/2022 12:49:56 12/14/2023 text/html CPAP F/UReported bypatient.CPAPmask does not leak; no trouble with sleep initiation; no problems with sleep maintenance; does not remove CPAP mask during the night; does not wake up in the middle of the night with dry mouth; no snoring through the mask; no aerophagia; no abdominal discomfort; no skin irritation; no ear pain; no ear pressure; no nasal congestion; wakes up rested; no excessive daytime sleepiness; no headache; no memory loss;Problems with CPAPNotes:ESS-15, he notes he needs supplies and has not used machine in months due to not able to use machine and he notes that his sleep has worsened with not using his CPAP and wants to get his supplies so he can use it. He notes restful sleep and feels refreshed when he is using the machine. Licha Combs NP [address] [employer], [place], [address], [facility] [employer] 12/14/2023 12:31:22 06/15/2024 text/html CPAP F/UReported bypatient.CPAPmask does not leak; no trouble with sleep initiation; no problems with sleep maintenance; does not remove CPAP mask during the night; does not wake up in the middle of the night with dry mouth; no snoring through the mask; no aerophagia; no abdominal discomfort; no skin irritation; no ear pain; no ear pressure; no nasal congestion; wakes up rested; no excessive daytime sleepiness; no headache; no memory loss;Problems with CPAPNotes:he notes he still has not gotten supplies and has not used machine in months due to not able to use machine and he notes that his sleep has worsened with not using his CPAP and wants to get his supplies so he can use it. He notes restful sleep and feels refreshed when he is using the machine. Licha Combs NP [address] [employer], [place], [address], [employer] [facility] [employer] 06/15/2024 11:30:05 08/17/2024 text/html CPAP F/UReported bypatient.CPAPNo problems with CPAP; mask does not leak; no trouble with sleep initiation; no problems with sleep maintenance; does not remove CPAP mask during the night; no snoring through the mask; no aerophagia; no abdominal discomfort; no skin irritation; no ear pain; no ear pressure; no nasal congestion; sleep related symptoms have markedly improved; wakes up rested; no excessive daytime sleepiness; no headache; no memory lossNotes:he did get supplies and is feeling a lot better Licha Combs NP [address] [employer], [place], [address], [employer] [facility] [employer] [facility] 08/21/2024 15:52:03 08/24/2024 text/html patient reports tinnitus for years. 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 They also reports that for years he has had dysphagia Jericho Arroyo MD [address] [facility], [place], [address], [employer] [facility] 08/24/2024 12:00:17
--- OUTSIDE RECORDS SUMMARY | 2024-11-09 12:09 | XMS_ITS | Clinical Summary ---
Author Organization [facility] Address [address] [place] [address] Care Team Providers Care Bureau Chief Name Role Phone Regino Pardo MD Primary Care Provider Carlo Al MD Unavailable Allergies Active Allergy Reactions Criticality Noted Date [...] mg total) by mouth daily 4 Active wcbmo-9k-igs-epa -algal oil [id number] mg capsule Take 1 capsule by mouth [...] total) by mouth daily 5 Active omega 3-cnr-bvq-fish oil 1,000 mg (250 mg-750 mg)/5 mL [...] day as needed (cramping/bloat ing/gas/nausea) 120 tablet 5 Active nblgu-c-konfulul idase 400 unit tablet Take two tabs [...] mg total) by mouth daily Active vit C,H-Bg-ckfxq-lut ein-zeaxan 250-90-40-1 mg capsule Take by mouth [...] on CPAP 01/27/2019 MICKIE (acute kidney injury) ([facility]) 01/27/2019 Type 2 diabetes mellitus wit h hyperglycemia, with long-term current use of insulin ([facility]) 01/27/2019 Assessment & Plan (09/03/2022 3:13 [...] eye exam. last dilated eye exam was [facility] Monofilament foot exam completed. protective senses intact but diminished Treated with gabapentin Urine microalbumin/creatinine ratio - goal <30 treated with amlodipine, chlorthalidone, sacubitril/valsartan, spironolactone. Personally reviewed CMP eGFR-49 Kidney function- abnormal B/P today- at [...] back with any further questions or concerns. Encounters Date Type Department Care Team Description 10/20/2024 Telephone [facility] Gastroenterology at [address] [place] [address] Rebekah Marino 10/18/2024 Results Follow-Up [facility] Gastroenterology at [address] [place] [address] Glory Jaffe MD Surgical pathology 10/06/2024 11:31 AM CDT Anesthesia Event [address] [address] Jefry Briggs MD Zirkelbach, Cecilia A., CRNA 10/06/2024 10:00 AM CDT - 10/06/2024 10:30 AM CDT Surgery [address] [address] Glory Jaffe MD COLON REMOVAL SNARE 10/06/2024 8:39 AM CDT - 10/06/2024 12:46 PM CDT Hospital Encounter [address] [address] Glory aJffe MD Hx of colonic polyps Discharge Disposition: Discharge to home or self care 08/15/2024 Telephone [facility] Gastroenterology at [address] [place] [address] Natalya Marino MA 08/11/2024 8:15 AM CDT Office Visit [facility] Gastroenterology at [address] [place] [address] Reyes Rivera NP Postprandial bloating (Primary Dx); Chronic constipation; Chronic prescription opiate use; High grade dysplasia in colonic adenoma; Tubular adenoma of colon from Last 3 Months Immunizations Immunization Administration Dates Next Due Influenza, Quadrivalent, Spl it, Intramuscular 01/31/2019,01/25/2017,01/14/2016 Influenza, Trivalent, IM (MDV) 01/31/2017 Influenza, Unspecified 01/23/2019 Surgical History Surgery Date Site/Laterality Comments KNEE ARTHROSCOPY Left left knee replacment MASTOIDECTOMY Right HERNIA REPAIR CHOLECYSTECTOMY 10/19/2019 HEMORRHOID SURGERY 02/28/2024 COLONOSCOPY 05/03/2022 - 05/02/2023 COLONOSCOPY 2024 COLONOSCOPY 10/06/2024 Medical History Medical History Date Comments Personal history of other en docrine, nutritional and metabolic disease History of diabetes mellitus - (Added by TW Conv) Personal history of other me ntal and behavioral disorders History of depression - (Add ed by TW Conv) Personal history of other di seases of the circulatory system History of hypertension - (A dded by TW Conv) Convulsions (HCC) Seizure - (Add ed by TW Conv) CHF (congestive heart failure) (HCC) Diabetes mellitus (HCC) Sleep apnea Seizure disorder (HCC) grand mal H/O hand surgery left Arthritis COPD (chronic obstructive pu lmonary disease) (HCC) Hypertension GERD (gastroesophageal reflux disease) Chronic kidney disease Type 2 diabetes mellitus (HCC) Hemorrhoids 02/21/2024 Acute cholecystitis Bleeding hemorrhoid 02/13/2024 Colon polyp Hyperlipidemia Family History Medical History Relation Name Comments Cancer Mother Colon cancer Mother Diabetes Mother Hypertension Mother Diabetes Other 1 Family history of diabetes mellitus - (Added by TW Conv) Hypertension Other 2 Family history of hypertension - (Added by TW Conv) Relation Name Status Comments Father Mother Other 1 Other 2 Social History Tobacco Use Types Packs/Day Years Used Date Smoking Tobacco: Every Day Cigarettes 1 45 Smokeless Tobacco: Never Tobacco Cessation:Ready to Q uit: Not Asked; Counseling Given: Not Answered Comments:pt reports not smoking over the past 2 days Alcohol Use Standard Drinks/Week Comments Never 0 (1 standard drink = 0.6 oz pur e alcohol) [facility] Utilities Answer Date Recorded In the past 12 months has [employer], gas, oil, or water [employer] threatened to shut off services in your [...] week 03/07/2024 How often do you attend [facility] or restorationism services? Never 03/07/2024 Do you belong to any clubs o r organizations such as orthodoxy groups, unions, fraternal or athletic groups, or [...] any time in the past 12 m [facility], were you homeless or living in a fci (including now)? No 03/07/2024 Personal Safety Answer Date Recorded Have you ever been in or are you currently in a harmful physical or emotional relationship or is someone making you feel afraid or unsafe? Denies 10/06/2024 Sex and Gender Information Value Date Recorded Sex Assigned at Not on file Legal Sex Male 3:05 AM BAND STRAIGHTENER Gender Identity Not on file Sexual Orientation Not on file Obstetrics History Last Filed Vital Signs Vital Sign Reading [...] Description 10/10/2025 7:55 AM CDT Hospital Encounter [address] [address]Glory Grossman MD [address] [place] [address] [address] [place] [address] 10/10/2025 7:55 AM CDT - 10/10/2025 8:25 AM CDT Surgery [address] [address]Glory Grossman MD [address] [facility] [address] [place] [address] COLONOSCOPY Scheduled Procedures Name Priority Associated Diagnoses Date/Ti me COLONOSCOPY History of colonic polyps 10/10/2025 7:55 AM CDT Health Maintenance Due Date Last Done Comments Hepatitis C Screening 1965 Prostate Cancer Screening-PSA 1965 Hepatitis B Screening 1981 Regular Well Visit/Exam 18-64 1981 Lung Cancer Screening 2013 Pneumococcal vaccine <65 (3 of 3 - PCV20 or PCV21) 01/18/2020 01/17/2015, 12/29/2012, 05/03/2012 Depression Screening 10/17/2020 10/18/2019, 01/28/20 19 Albumin Creatinine Ratio, Urine 05/08/2023 Dilated Eye Exam 09/02/2023 09/01/2022 Foot Exam 09/04/2023 09/03/2022 Covid-19 Vaccine (4 - 2023-2 5 season) 2024 02/13/2021, 07/29/2020, 07/07/2020 Hemoglobin A1C 10/07/2024 04/08/2024, 08/16/2022 Lipid Panel 04/08/2025 04/08/2024, 09/24/2022 eGFR 04/08/2025 04/08/2024, 1210/2023, 03/28/2024, Additional history exists DTaP/Tdap/Td Vaccine (2 - Td or Tdap) 09/09/2025 09/10/2015 Colon Cancer Screening-Colonoscopy 10/06/2034 10/06/2024, 2024 Zoster Vaccine Completed 06/18/2020, 04/16/2020 Influenza Vaccine Completed 04/19/2024, , 01/26/2022, Additional history exists Colon Cancer Screening-CT Colonography Discontinued 10/06/2024, 2024, 02/11/2024 Colon Cancer Screening-DNA Stool Discontinued 10/06/2024, 2024, 02/11/2024 Colon Cancer Screening-FIT Discontinued 10/06, 2024, 02/11/2024 Colon Cancer Screening-Sigmoidoscopy Discontinued 10/06/2024, 2024, 02/11/2024 Procedures Procedure Name Priority Date/Time Associated Diagnosis [...] AM CDT EGFR Routine 04/08/2024 5:36 AM BAND STRAIGHTENER HEMOGLOBIN A1C Routine 04/08/2024 5:36 AM BAND STRAIGHTENER LIPID PANEL Routine 04/08/2024 5:36 AM BAND STRAIGHTENER DIABETIC EYE EXAM Routine 09/01/2022 ALBUMIN CREATININE [...] Biopsy) 10/06/2024 12:07 PM CDT Narrative PATHOLOGY [facility] ([place]) - 10/10/2024 4:55 PM CDT [facility] results best viewed via link to PDF [facility] Department of Pathology [address] [place] [address] Note to Patients: This report may contain [...] Final Report Patient Name: HORTENCIA CAMARENA Address: [address] [place] [address] Gender: M : 1965 (Age: 59) Service: Gastro Location: [facility] Hospital #: [id number] Patient Type: [facility] Taken: 10/06/2024 Received: 10/06/2024 Accessioned: 10/06/2024 Reported: [...] is labeled cecum polyp. It is 2 huagn tissue fragments between 2 and 5 mm. [...] 3 mm. All in D. T.A. Silvia Noland.Ayleen./Min Chapman M.D. REPORT IMAGES AND SCANNED DOCUMENTS, IF INCLUDED, ONLY VIEWABLE IN PDF VERSION OF REPORT The performance characteristics of some immunohistochemical stains, fluorescence in-situ hybridization tests and immunophenotyping by flow cytometry cited in this report (if any) were determined by the Surgical Pathology Department at [facility] as part of an ongoing water quality control engineer program and in compliance with federally mandated [...] characteristics determined by the Surgical Pathology Department [facility]. It has not been cleared or approved by the U. S. Food and Drug Administration. Note for decalcified specimens: This assay has not been validated on decalcified tissues. Results should be interpreted with caution given the possibility of false negativity on decalcified specimens Glory Jaffe MD LAB PATHOLOGY ORDERABLES Final R esult Performing Organization Address City/[facility] Co de Phone Number PATHOLOGY [facility] ([facility] [address] [place] [address] * POCT glucose (10/06/2024 10:11 AM CDT) Glucose, POC 115 70 - 199 mg/dL Blood 10/06/2024 10:1 1 AM CDT 10/06/2024 10:11 AM CDT Glory Jaffe MD LAB POCT ORDERABLES - DEVICE Fin al Result Performing Organization Address [facility] Co de Phone Number CERNER [facility] ([facility] [address] [facility] Department of Laboratories [place] [phone] * Colonoscopy (10/06/2024 8:53 AM CDT) Anatomical Region Laterality Modality Other Narrative Procedure Note Glory Jaffe MD - 10/06/2024 8:53 AM CDT [facility] Patient Name: Hortencia Camarena Procedure Date: 10/06/2024 8:53 AM Date of : 1965 Admit Type: Outpatient Age: 59 Gender: Male Attending MD: Glroy Jaffe M.D. Room: [facility] ENDOSCOPY ROOM 2 Note Status: Finalized Patient [...] procedure were verified by the physician, the credit reference clerk and the spray technician in the endoscopy suite. Mental Status [...] passed under direct vision. The Pediatric Colonoscope [id number] was introduced through the anus and advanced [...] 8:53 AM Procedure Code(s): --- Professional --- 43104, Colonoscopy, flexible; with biopsy, single or multiple --- Technical --- 28101, Colonoscopy, flexible; with biopsy, single or multiple [...] intestine K64.8, Other hemorrhoids CPT copyright 2020 [employer]. All rights reserved. The codes documented in this report are preliminary and upon hims coder reviewmay be revised to meet current compliance requirements. Recognized by the [employer] for promoting quality in endoscopy us Glory Jaffe MD ENDOSCOPY PROCEDURES Final Resul t * (ABNORMAL) eGFR (04/08/2024 5:36 AM BAND STRAIGHTENER) eGFR 54(L) >=60 mL/min/1. 73 m2 Comment: [...] last reviewed 2021. Blood 04/08/2024 5:36 AM BAND STRAIGHTENER 04/08/2024 5:47 AM BAND STRAIGHTENER us Saige Carpenter MD LAB BLOOD ORDERABLES Fi nal Result [facility] ([place]) [address] [facility] Department [place] [address] * (ABNORMAL) Hemoglobin A1c (04/08/2024 5:36 AM BAND STRAIGHTENER) Hgb A1C 6.6(H) 4.0 - 5.6 % Estimated Average Glucose 143 mg/dL [facility] ([facility]) Comment: The ADA recommends reporting an estimated Average Glucose (eAG) with all Hemoglobin A1c results using the equation derived from a study of 507 normal and diabetic adults. Minority populations were underrepresented and children were not included. (Diabetes Care 31:9537-2026, 2008). The eAG is not equivalent to a fasting glucose. Blood 04/08/2024 5:36 AM BAND STRAIGHTENER 04/08/2024 5:46 AM BAND STRAIGHTENER us Kaylie Kang MD LAB BLOOD ORDERABLES Final Resul t [facility] ([place]) [address] [facility] Department [place] [address] * (ABNORMAL) Lipid panel (04/08/2024 5:36 AM BAND STRAIGHTENER) Cholesterol 147 30 - 199 mg/dL Comment: [...] revised on 2017. Triglycerides 307(H) <=149 mg/dL [facility] ([facility]) Comment: Interpretive Data [...] on 2017. HDL 33(L) >=40 mg/dL [facility] ([facility]) Comment: Interpretive Data [...] 2017. LDL, calculated 65 <=129 mg/dL [facility] ([place]) Comment: Interpretive Data [...] 3. Kaveh Bryson et al. WINSTON Cardiol. 2019August 31;5(5):540-548. doi: 10.1001/[email or web address].2020.0013 Current Interpretive Data was [...] on 2017. Chol/HDL ratio 4 [facility] ([place]) Blood 04/08/2024 5:36 AM BAND STRAIGHTENER 04/08/2024 5:47 AM BAND STRAIGHTENER us Saige Carpenter MD LAB BLOOD ORDERABLES Fi nal Result [facility] ([place]) [address] [facility] Department [place] [address] * (ABNORMAL) Diabetic Eye Exam (09/01/2022) us Historical Provider HEALTH MAINTENANCE Final Result * Albumin Creatinine Ratio, Urine (05/08/2022) SCRIBED Creatinine, Urine 244.64 - - - EXTERNAL LAB SCRIBED Microalbumin 249.7 - - - EXTERNAL LAB SCRIBED Microalb/Creat Ratio 102 EXTERNAL LAB Urine 05/08/2022 Historical Provider LAB URINE ORDERABLES Suki l Result Performing Organization Address City/[facility]/ZIP Co de Phone Number EXTERNAL LAB from Last 3 Months or Most Recently Relevant to Health Maintenance Insurance MEDICARE [employer] IDPA MEDICARE IDPA MEDICARE Advance Directives For more information, please contact: [phone] * Full Code (Latest Code Status on [...] 1:34 AM 04/08/2024 9:19 PM Care Teams Bureau Chief Relationship Specialty Start Date End Date Regino Pardo MD [address] [place] [address] PCP - General 02/16/17 Carlo Al MD [address] [place] [address] Consulting Physician General Surgery 10/21/19
--- OUTSIDE RECORDS SUMMARY | 2024-11-09 12:10 | XMS_ITS ---
Author Organization [facility] Address [address] [place] [address] Care Team Providers Care Manager Discovery Name Role Phone Stone Ross Primary Care Provider [phone] Encounters Encounter Location Date Provider Diagnosis [facility] [address] [facility] [address] [place] [address] 08/25/2024 Stone Ross Plan Of Treatment Next Appt Details Provider Name:Stone Ross , 11/17/2024 01:45:00 PM, [address], [place], [address], Progress Notes * HORTENCIA ALMANZADOB:1965 (4 1 yo M)Acc No.[id number]:08/25/2024 Progress Notes Patient: HORTENCIA VALENTINO Provider: Alex BENÍTEZ MD, Odell.Analisa.C.P, F.A.S.N. :1965 A ge:59 Y S ex:Male Date:08/25/2024 Address:[address] [place] [address] Subjective: * Chief Complaints: * * Medical History: Objective: * Vitals: Assessment: Plan: * Treatment: * Billing Information: * Visit Code: * Procedure Codes: * Electronic signature of Ava Ross MD on 11/09/2024 at 12:10 PM CDT Sign off status: Pending * Provider: Alex BENÍTEZ MD, Odell.Analisa.C.P, F.A.S.N. Date: 0 08/25/2024 Generated for Printing/Faxing/eTransmitting on: 0 11/09/2024 12:10 PM CDT
--- OUTSIDE RECORDS SUMMARY | 2024-11-09 12:10 | XMS_ITS | Clinical Summary ---
Author Organization [facility] Address [address] [place] [address] Phone Care Team Providers Care Blackener Name Role Phone Regino Pardo MD Primary Care Provider Joaquim Martinez MD Unavailable Jaciel Harrison MD Unavailable Gayatri Felton MD Unavailable [phone] Allergies Active Allergy Reactions Criticality Noted Date Comments Umeclidinium-Vilanterol Rash High 09/06/2019 Anora inhaler Medications Aspirin 81 MG Tablet Take 81 mg by mouth daily. Active azelastine (ASTELIN) 0.1 % Solution 2 Sprays by Nasal route 2 times daily. Use in each nostril as directed Active calcitRIOL (ROCALTROL) 0.25 MCG Capsule Take 0.25 mcg by mouth daily. Active carBAMazepine (TEGRETOL) 200 MG Tablet Take 200 mg by mouth 3 times daily (with meals). Active ferrous sulfate 325 (65 Fe) MG Tablet Take 325 mg by mouth daily. Active fluticasone (FLONASE) 50 MCG/ACT Suspension 1-2 Sprays by Nasal route daily. Use in each nostril as directed. Active HYDROcodone-ac etaminophen (NORCO) 7.5-325 MG Tablet Take 1 Tablet by mouth every 6 hours. Active ipratropium (ATROVENT) 0.03 % Solution 2 Sprays by Nasal route 3 times daily. Active Levetiracetam 1000 MG Tablet Take 1,500 mg by mouth 2 times daily. Active montelukast (SINGULAIR) 10 MG Tablet Take 10 mg by mouth every evening. Active Winder-3 Fatty Acids (OMEGA-3 FISH OIL PO) Take by mouth daily. Active rosuvastatin (CRESTOR) 40 MG Tablet Take 40 mg by mouth daily. Active sertraline (ZOLOFT) 50 MG Tablet Take 50 mg by mouth daily. Active spironolactone (ALDACTONE) 100 MG Tablet Take 50 mg by mouth daily. Active Acetaminophen (TYLENOL ARTHRITIS PAIN PO) Take by mouth as needed. Active VITAMIN D PO Take by mouth once a week. Active Cetirizine HCl (ZYRTEC PO) Take by mouth daily. Active sacubitril-mae sartan (Entresto) 97-103 MG Tablet Take 1 Tablet by mouth 2 times daily. Active famotidine (PEPCID) 20 MG Tablet Take 20 mg by mouth as needed. Active Insulin Glargine (BASAGLAR KWIKPEN SC) 50 Units by Subcutaneous route nightly. Active chlorthalidone (HYGROTON) 25 MG Tablet Take 25 mg by mouth daily. Active Insulin Aspart, w/Niacinamide, (Fiasp FlexTouch) 100 UNIT/ML Solution Pen-injector 15 Units by Subcutaneous route 3 times daily (before meals). Active gabapentin (NEURONTIN) 300 MG Capsule Take 300 mg by mouth daily. Active NIFEdipine CR (PROCARDIA-XL) 90 MG TABLET SR 24 HR Take 90 mg by mouth every morning. Active phenytoin (DILANTIN) 100 MG ER capsule Take 200 mg by mouth 2 times daily. Active Multiple Vitamins-Charlotte als (PRESERVISION AREDS PO) Take by mouth 2 times daily. Active carvedilol (COREG) 3.125 MG Tablet Take 3.125 mg by mouth. 4 025 Active chlorproMAZINE (THORAZINE) 25 MG Tablet chlorpromazine 25 mg tablet 5 Active carBAMazepine (TEGretol) 200 MG Tablet Take 1 Tablet by mouth 3 times daily. Active phenytoin (Phenytek) 200 MG ER capsule Take 200 mg by mouth 2 times daily. Active BUVNN-D-LHZKHC OSIDASE PO Take 400 mg by mouth 3 times daily. 2 tabs 3 times daily before meals Active Lactobacillus- Inulin (CULTURELLE ADULT ULT BALANCE PO) Take by mouth daily. 10 billion gel cap Active simethicone (MYLICON) 125 MG Chewable Tablet Take 125 mg by mouth 4 times daily as needed. Active senna (SENOKOT) 8.6 MG Tablet Take 2 Tablets by mouth nightly. Nightly twice a week Active Active Problems Problem Noted Date Diagnosed Date Family history of malignant neoplasm of gastrointestinal tract 08/26/2023 Encounters Date Type Department Care Team Description 09/07/2024 9:00 AM CDT Office Visit [facility] - General Surgery - [place] [address] [address] Gayatri Felton MD Tinnitus, bilateral (Primary Dx); Sensorineural hearing loss (SNHL) of both ears Discharge Disposition: Discharged to home or Selfcare 09/07/2024 Travel from Last 3 Months Immunizations Immunization Administration Dates Next Due Influenza Vaccine, MDCK,quad rivalent, pres free 01/26/2022 Influenza Vaccine, Quadrivalent, PF 01/29/2023,1 06/17/2019,01/05/2018 Influenza Vaccine,unspecifie d Formulation 01/29/2023,01/23/2019 Influenza, High-dose, Quadrivalent 02/20/2014 Influenza, Injectable, Quadrivalent 01/02,01/01/2021,04/16/2020,2018,01/01/2018,01/25/2017,01/14/2016,0 01/18/2015 Influenza, Seasonal, Injecta ble, Undefined 02/06/2021,01/31/2017,01/18/2014 Influenza, high-dose, trivalent, PF 02/20/2014 Pneumococcal Vaccine - 13 Valent 01/17/2015 Pneumococcal Vaccine Adult - 23 Valent 12/29/2012,05/03/2012 Sars-cov-2 (Covid-19) Vaccin e, Unspecified 08/26/2020,07/26/2020 TDAP Vaccine 09/10/2015 Zoster Vaccine Recombinant 06/18/2020,04/16/2020 Family History Medical History Relation Name Comments Hypertension Daughter 1 No Known Problems Daughter 2 No Known Problems Daughter 3 No Known Problems Daughter 4 No Known Problems Daughter 5 No Known Problems Daughter 6 Cancer Father Colon Cancer Father Cancer Half-Sister 1 Asthma Mother Diabetes Mother High Cholesterol Mother Hypertension Mother No Known Problems Son 1 No Known Problems Son 2 No Known Problems Son 3 No Known Problems Son 4 Relation Name Status Comments Daughter 1 Alive Daughter 2 Alive Daughter 3 Alive Daughter 4 Alive Daughter 5 Alive Daughter 6 Alive Father Half-Brother 1 Alive Half-Brother 2 Alive Half-Brother 3 Alive Half-Brother 4 Alive Half-Sister 1 Half-Sister 2 Alive Half-Sister 3 Alive Half-Sister 4 Alive Half-Sister 5 Alive Mother Sister Alive Son 1 Alive Son 2 Alive Son 3 Alive Son 4 Alive Social History Tobacco Use Types Packs/Day Years Used Date Smoking Tobacco: Every Day Cigarettes 0.5 50.5 Started: 1974 Tobacco Cessation:Ready to Q uit: No; Counseling Given: Yes Alcohol Use Standard Drinks/Week Comments Not Currently 0 (1 standard drink = 0.6 oz pur e alcohol) stopped 2012 Sexually Active Control Partners Comments Yes Female Sex and Gender Information Value Date Recorded Sex Assigned at Not on file Legal Sex Male 7:32 PM CDT Gender Identity Not on file Sexual Orientation Not on file Last Filed Vital Signs Vital Sign Reading Time Taken Comments Blood Pressure 130/84 09/07/2024 8:38 AM CDT Pulse 70 09/07/2024 8:38 AM CDT Temperature 36.6 C (97.9 F) 09/07/2024 8:38 AM CDT Respiratory Rate 95 08/08/2024 1:36 PM CDT Oxygen Saturation 98% 09/07/2024 8:38 AM CDT Inhaled Oxygen Concentration - - Weight 99.8 kg (220 lb) 09/07/2024 8:38 AM CDT Height 185.4 cm (6' 1) 09/07/2024 8:38 AM CDT Body Mass Index 29.03 09/07/2024 8:38 AM CDT Plan of Treatment Upcoming Encounters Date Type Department Care Team (Late st Contact Info) Description 03/28/2025 9:30 AM KISS SETTER HAND Office Visit [facility] [address] [place] [phone] Joaquim Martinez MD [address], [address] [phone] 10/10/2025 8:30 AM CDT Office Visit [facility] - Ear, Nose & Throat - [place] [address] [place] [address] Gayatri Felton MD [address] [address] Health Maintenance Due Date Last Done Comments Hepatitis C Virus (HCV) Screening 1963 Cologuard 2008 Immunochemical Fecal Occult Blood 2008 PSA Discussion 2018 Pneumococcal Immunization (50+ years) (3 of 3 - PCV20 or PCV21) 01/18/2020 01/17/2015, 12/29/2012, 05/03/2012 Lung Cancer Screening 07/12/2020 07/13/2019 , 02/27/2019, 02/27/2019, Additional history exists SARS-COV-2 Immunization ( season) 2024 02/05/2022, 02/13/2021, 08/26/2020, Additional history exists Influenza Immunization (#1) 01/01/202504/02, 01/29/2023, 01/29/2023, Additional history exists Td Immunization Every 10 Years (Adults With 1 Tdap) 09/09/2025 09/10/2015 Colonoscopy 2027 2024, /10/2023, 08/26/2023, Additional history exists Colorectal Cancer Screening 2027 Pneumococcal Immunization Combined Discontinued 01/17/2015, 12/29/2012, 05/03/2012 DTaP/Tdap/Td Immunization Discontinued 09/10/2015 TdaP Immunization Discontinued 09/10/2015 Zoster Immunization Completed 06/18/2020, Respiratory Syncytial Virus (RSV) Immunization (Adult) Completed 05/01/2024 Hepatitis B Immunization Aged Out No longer eligible based on patient's age to complete this topic Human Papillomavirus (HPV) Immunization Aged Out No longer eligible based on patient's age to complete this topic Meningococcal Immunization (ACWY) Aged Out No longer eligible based on patient's age to complete this topic Rotavirus Immunization Aged Out No lo nger eligible based on patient's age to complete this topic Procedures Procedure Name Priority Date/Time Associated Diagnosis Comments CT CHEST W CONTRAST Routine 07/13/2019 3 :02 PM CDT Localized swelling, mass and lump, trunk from Last 3 Months or Most Recently Relevant to Health Maintenance Results * CT CHEST W CONTRAST (07/13/2019 3:02 PM CDT) Anatomical Region Laterality Modality Chest N/A Computed Tomogra phy 07/14/2019 3:12 PM CDT Impressions 07/14/2019 3:15 PM CDT IMPRESSION: 1. Stable appearance of the anterior mediastinal mass. This could represent a prominent lymph node. Recommend 6 month follow-up examination to ensure continued stability in size. 2. There is a stable 0.2 cm nodule within the medial left lower lobe. Attention to this nodule on follow-up examination is recommended. 3. Pulmonary arterial hypertension. 4. Mild aneurysm of the aorta measuring up to 4 cm. Narrative 07/14/2019 3:15 PM CDT EXAM DESCRIPTION: CT CHEST W CONTRAST REASON FOR STUDY: Anterior mediastinal mass discovered 6 months ago TECHNIQUE: CT scan of the chest with intravenous contrast. Reconstructed coronal and sagittal MPR images reviewed. All images stored on PACS. Automated exposure control was used as a dose optimization technique for this examination. CONTRAST TYPE/DOSE: 100 mL of Isovue 370 injected via right antecubital fossa COMPARISON: 01/27/2019; 02/27/2019 FINDINGS: LUNGS: Moderate emphysematous changes of the lungs are noted. Minimal tree-in-bud type opacities within the superior right middle lobe are noted around axial image 73. There is a stable 0.2 cm nodule within the medial left lower lobe on axial image 97. PLEURA: There is no pleural effusion. There is no pneumothorax. MEDIASTINUM/ARNOLDO: No hilar lymphadenopathy is present. Soft tissue mass along the anterior aspect of the mediastinum is noted. This measures 2.1 cm in AP by 1 cm in transverse and extends over 2.5 cm in craniocaudal dimension. On the index examination, this measured around 2.2 x 1 cm in axial dimensions. There is no evidence of axillary lymphadenopathy. There is no pericardiophrenic or retrocrural lymphadenopathy. Cysts within the left kidney are noted. Several subcentimeter areas are too small to definitively characterize. It has HEART: Heart is within normal limits in size. There is a trace amount of fluid within the pericardium. VASCULATURE: Main pulmonary artery is enlarged up to 4.3 cm in size. Adjacent aorta is mildly aneurysmal at 4 cm in size. AXILLA: No adenopathy. CHEST WALL: No masses. No subcutaneous air. HARDWARE/LINES/TUBES: None. UPPER ABDOMEN: No significant abnormality. MUSCULOSKELETAL: Mild osteoarthritic changes of the spine are noted. OTHER: No other significant abnormality. THIS IS AN ELECTRONICALLY VERIFIED FINAL REPORT 07/14/2019 3:12 PM - Electronically signed by Josh Sewell M.D. AT: AT Report ID: [id number] Reading Location: [place] [address] Procedure Note Josh Sewell MD - 07/14/2019 EXAM DESCRIPTION: CT CHEST W CONTRAST REASON FOR STUDY: Anterior mediastinal mass discovered 6 months ago TECHNIQUE: CT scan of the chest with intravenous contrast. Reconstructed coronal and sagittal MPR images reviewed. All images stored on PACS. Automated exposure control was used as a dose optimization technique for this examination. CONTRAST TYPE/DOSE: 100 mL of Isovue 370 injected via right antecubital fossa COMPARISON: 01/27/2019; 02/27/2019 FINDINGS: LUNGS: Moderate emphysematous changes of the lungs are noted. Minimal tree-in-bud type opacities within the superior right middle lobe are noted around axial image 73. There is a stable 0.2 cm nodule within the medial left lower lobe on axial image 97. PLEURA: There is no pleural effusion. There is no pneumothorax. MEDIASTINUM/ARNOLDO: No hilar lymphadenopathy is present. Soft tissue mass along the anterior aspect of the mediastinum is noted. This measures 2.1 cm in AP by 1 cm in transverse and extends over 2.5 cm in craniocaudal dimension. On the index examination, this measured around 2.2 x 1 cm in axial dimensions. There is no evidence of axillary lymphadenopathy. There is no pericardiophrenic or retrocrural lymphadenopathy. Cysts within the left kidney are noted. Several subcentimeter areas are too small to definitively characterize. It has HEART: Heart is within normal limits in size. There is a trace amount of fluid within the pericardium. VASCULATURE: Main pulmonary artery is enlarged up to 4.3 cm in size. Adjacent aorta is mildly aneurysmal at 4 cm in size. AXILLA: No adenopathy. CHEST WALL: No masses. No subcutaneous air. HARDWARE/LINES/TUBES: None. UPPER ABDOMEN: No significant abnormality. MUSCULOSKELETAL: Mild osteoarthritic changes of the spine are noted. OTHER: No other significant abnormality. THIS IS AN ELECTRONICALLY VERIFIED FINAL REPORT 07/14/2019 3:12 PM - Electronically signed by Josh Sewell M.D. AT: AT Report ID: [id number] Reading Location: [place] [address] IMPRESSION: 1. Stable appearance of the anterior mediastinal mass. This could represent a prominent lymph node. Recommend 6 month follow-up examination to ensure continued stability in size. 2. There is a stable 0.2 cm nodule within the medial left lower lobe. Attention to this nodule on follow-up examination is recommended. 3. Pulmonary arterial hypertension. 4. Mild aneurysm of the aorta measuring up to 4 cm. Regino Pardo MD IMG CT ORDERABLES Final Result from Last 3 Months or Most Recently Relevant to Health Maintenance Insurance MEDICAID [place] MEDICARE Care Teams Blackener Relationship Specialty Start Date End Date Regino Pardo MD [address] [place] [id number] PCP - General Internal Medicine 07/05/19 Joaquim Martinez MD [address]2 [facility] [address] [place] [address] Consulting Physician Urological Surgery 06/09/23 Jaciel Harrison MD #2 [facility] [address] [place] [address] Consulting Physician Colon and Rectal Surgery 07/19/23 [place] [address] Consulting Physician Otolaryngology 08/04/24
--- OUTSIDE RECORDS SUMMARY | 2024-11-09 12:10 | XMS_ITS | Data Portability ---
Author Organization [facility] Ernie Ribeiro Address [address] [place] [address] Care Team Providers Care Millinery Blocker Name Role Phone ADDIS WASHINGTON Teacher Of Family And Consumer Science TYE BURTON Loading Checker BARBARA SALAS Central Scheduler DIEUDONNE DICKENS Wildlife And Game Protector [facility] - NEUR[facility] Neurologist Assessment Encounter Date Assessment Date Assessment LastModified by Organization Details LastModified Time 07/18/2024 07/18/2024 He is rather vague about his throat issues which are chronic and he will be referred back to ENT. The fact that he has Phenytoin from two different providers in two different forms is a recipe for disaster. He really should have one provider prescribing his Phenytoin. I will check his levels today and he believes that he has an appointment with his neurologist. oajao Not available 07/18/2024 16:32:32 11/02/2024 11/02/2024 He has chronic LBP, PAD and peripheral neuropathy and has the capacity to operate a PMD oajao Not available 11/02/2024 13:56:42 Plan of Treatment Reminders Order Date Submit Date Provider Last Modified By Organization Details Last Modified Time Details Appointments ANY 15 2024 10:15A Adelaide Pardo MD Not available Not available Not available Lab phenytoin , free + total, serum 2024 025 [facility] ([facility]), [address] [place], [address], 07/21/2024 16:21:36 Referral otolaryng ologist referral - PLEASE CALL PATIENT TO SCHEDULE APPT. THANK YOU 2024 lana Arroyo MD, [address], [place], [address], 09/18/2024 16:13:47 Procedures None recorded. Surgeries None recorded. Imaging LDCT, chest, for lung cancer screening 2023 025 [facility] ([facility]), [address] [place], [address], 05/10/2024 13:46:53 Medication Orders Viagra 100 mg tablet 2024 025 [facility], [address], [place], [id number], 11/02/2024 12:28:49 Patient TargetsNo targets recorded. Patient Instructions Encounter Date Encounter Id Patient Instructions Last Modified By Organization Details Last Modified Time 04/19/2024 [id number] influenza (flu) vaccine: care instructions oajao Not available 04/19/2024 10:56:32 Quitting Tobacco : Care Instructions oajao Not available 04/19/2024 10:43:52 Use the cane for safety Follow up with your specialist in [place] Follow up in 3 months and PRN Stay off Nifedipine Addendum LDCT oajao Not available 04/19/2024 11:09:55 07/18/2024 [id number] A healthy lifestyle: care instructions oajao Not available 07/18/2024 10:22:53 learning about healthy weight oajao Not available 07/18/2024 10:22:53 Labs ENT as referred Schedule an appointment with your neurologist Follow up with all your medications in 3 weeks Stop smoking oajao Not available 07/18/2024 10:46:42 Detailed visit oajao Not available 0 07/18/2024 16:35:21 08/04/2024 [id number] epilepsy: care instructions oajao Not available 08/04/2024 11:28:48 MAWV in 6 weeks Start Viagra PRN Discuss Phenytek and Phenytoin with your neurologist, Dr Mag Aviles oajao Not available 08/04/2024 11:29:02 09/27/2024 [id number] advance care planning: care instructions oajao Not available 09/27/2024 11:05:55 preventing falls : care instructions oajao Not available 09/27/2024 11:05:55 Quitting Tobacco : Care Instructions oajao Not available 09/27/2024 11:05:55 Medicare Wellnes s Preventive Checklist oajao Not available 09/27/2024 11:05:55 eating healthy foods: care instructions oajao Not available 09/27/2024 11:05:55 AD8 Dementia Screening Interview oajao Not available 09/27/2024 11:05:55 Follow up as scheduled to discuss your additional home care needs and the documentation needed for your cane oajao Not available 09/27/2024 12:37:22 11/02/2024 [id number] physical therapy evaluation* - PMD evaluation, please; [phone] Patient's phone number ATHENAFAX Not available 11/08/2024 12:22:47 PT evaluation Follow up in 4 weeks oajao Not available 11/02/2024 12:00:13 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 Hx of MERCEDES PLEASE CALL PATIENT TO SCHEDULE APPT. THANK YOU Referring Physician: Regino Pardo, Internal Medicine, Encounter Date: 07/18/2024 Results Created Date Observation Date Name Description Value Unit Range Abnormal Flag Note LastModifiedBy Organization Detail LastModifiedTime 07/19/1907/18/2024 Pheny toin free and total panel - Serum or Plasm a phenytoin [mass/volume ] in serum or plasma 7.8 ug/mL text: 10.0-2 0.0 low Not Available Not Available 07/25/2024 03:31:21 07/19/1907/18/2024 Pheny toin free and total panel - Serum or Plasm a phenytoin free [mass/volume ] in serum or plasma 0.5 ug/mL text: 1.0-2. 0 low Not Available Not Available 07/25/2024 03:31:21 09/09/19 25 09/08/2024 Prote in elect ropho resis panel - Urine protein [mass/volume ] in urine 14.9 mg/dL text: not estab. normal Not Available Not Available 09/13/2024 22:26:25 09/09/19 25 09/08/2024 Prote in elect ropho resis panel - Urine albumin/prot ein.total in urine by electrophore sis 33.1 % normal Not Available Not Available 08/31 22:26:25 09/09/19 25 09/08/2024 Prote in elect ropho resis panel - Urine alpha 1 globulin/pro tein.total in urine by electrophore sis 1.6 % normal Not Available Not Available 08/31 22:26:25 09/09/19 25 09/08/2024 [facility] Urine alpha 2 globulin/pro tein.total in urine by electrophore sis 11.9 % normal Not Available Not Available 08/31 22:26:25 09/09/19 25 09/08/2024 [facility] - Urine beta globulin/pro tein.total in urine by electrophore sis 27.2 % normal Not Available Not Available 08/31 22:26:25 09/09/19 25 09/08/2024 Prote in elect ropho resis panel - Urine gamma globulin/pro tein.total in urine by electrophore sis 26.2 % normal Not Available Not Available 08/31 22:26:25 09/09/19 25 09/08/2024 [facility] - Urine protein.mono clonal/prote in.total in urine by electrophore sis Not Observ ed text: not observ ed normal Not Available Not Available 09/13/2024 22:26:25 09/09/19 25 09/08/2024 Prote in elect ropho resis panel - Urine laboratory comment [text] in report narrative Commen t normal Not Available Not Available 22:26:25 09/09/19 25 09/08/2024 Prote in elect ropho resis panel - Urine laboratory report . normal Not Available Not Available 08/31 22:26:25 09/15/19 09/14/2024 Prost ate speci fic Ag [Mass /volu me] in Serum or Plasm a prostate specific Ag [mass/volume ] in serum or plasma 2.96 NG/mL low: 0NG/mL high: 4NG/mL normal Not Available Not Available 09/20/2024 05:09:28 09/15/19 25 09/14/2024 Hemog lobin A1c/H emogl obin. total in Blood hemoglobin A1C/hemoglob in.total in blood 7.5 % low: 4%high : 6% high Not Available Not Available 09/20/2024 05:09:28 09/15/19 25 09/14/[address] [Mass /volu me] in Serum or Plasm a parathyrin.i ntact [mass/volume ] in serum or plasma 22.4 pg/mL low: 24pg/m Lhigh: 78pg/m L low Not Available Not Available 09/20/2024 05:09:28 09/15/19 25 09/14/2024 Micro album in/Cr eatin ine [Rati o] in Urine creatinine [mass/volume ] in urine 165.5 mg/dL normal Not Available Not Available 0 09/20/2024 05:09:29 09/15/19 25 09/14/2024 Micro album in/Cr eatin ine [Rati o] in Urine microalbumin [mass/volume ] in urine 14 mg/L low: 0mg/Lh igh: 16.6mg /L normal Not Available Not Available 09/20/2024 05:09:29 09/15/19 25 09/14/2024 Micro album in/Cr eatin ine [Rati o] in Urine microalbumin /creatinine [ratio] in urine 8 mcg/m g low: 0mcg/m ghigh: 29mcg/ mg normal Not Available Not Available 09/20/2024 05:09:29 09/15/19 25 09/14/2024 Urina lysis compl ete W Refle x Cultu re panel - Urine color of urine by auto Color of urine normal Not Available Not Available 05:09:28 09/15/19 25 09/14/2024 Urina lysis compl ete W Refle x Cultu re panel - Urine appearance of urine Urine specim en normal Not Available Not Available 05:09:28 09/15/19 25 09/14/2024 Urina lysis compl ete W Refle x Cultu re panel - Urine specific gravity of urine by test strip 1.02 1 low: 1.001h igh: 1.03 normal Not Available Not Available 09/20/2024 05:09:28 09/15/19 25 09/14/2024 Urina lysis compl ete W Refle x Cultu re panel - Urine pH of urine by test strip 5 pH_un its low: 5pH unitsh igh: 9pH units normal Not Available Not Available 09/20/2024 05:09:28 09/15/19 25 09/14/2024 Urina lysis compl ete W Refle x Cultu re panel - Urine leukocytes [#/volume] in urine by test strip Leukoc yte estera se measur ement text: negati ve normal Not Available Not Available 09/20/2024 05:09:28 09/15/19 25 09/14/2024 Urina lysis compl ete W Refle x Cultu re panel - Urine nitrite [presence] in urine by test strip Labora tory test findin g text: negati ve normal Not Available Not Available 09/20/2024 05:09:28 09/15/19 25 09/14/2024 Urina lysis compl ete W Refle x Cultu re panel - Urine protein [mass/volume ] in urine by test strip Urine findin g text: negati ve normal Not Available Not Available 09/20/2024 05:09:28 09/15/19 25 09/14/2024 Urina lysis compl ete W Refle x Cultu re panel - Urine glucose [moles/volum e] in urine by test strip Labora tory test findin g text: normal normal Not Available Not Available 09/20/2024 05:09:28 09/15/19 25 09/14/2024 Urina lysis compl ete W Refle x Cultu re panel - Urine ketones [moles/volum e] in urine by test strip Labora tory test findin g text: negati ve normal Not Available Not Available 09/20/2024 05:09:28 09/15/19 25 09/14/2024 Urina lysis compl ete W Refle x Cultu re panel - Urine urobilinogen [mass/volume ] in urine by test strip Urobil inogen measur ement, urine text: normal normal Not Available Not Available 09/20/2024 05:09:28 09/15/19 25 09/14/2024 Urina lysis compl ete W Refle x Cultu re panel - Urine bilirubin.to randy [mass/volume ] in urine by test strip Urine dipsti ck for biliru bin text: negati ve normal Not Available Not Available 09/20/2024 05:09:28 09/15/19 25 09/14/2024 Urina lysis compl ete W Refle x Cultu re panel - Urine erythrocytes [#/volume] in urine by test strip Urine dipsti ck for blood text: negati ve normal Not Available Not Available 09/20/2024 05:09:28 09/15/19 25 09/14/2024 Urina lysis compl ete W Refle x Cultu re panel - Urine leukocytes [#/area] in urine sediment by automated count Leukoc ytes in urine low: 0/[hpf ]high: 8/[hpf ] normal Not Available Not Available 09/20/2024 05:09:28 09/15/19 25 09/14/2024 Urina lysis compl ete W Refle x Cultu re panel - Urine erythrocytes [#/area] in urine sediment by automated count Blood in urine low: 0/[hpf ]high: 4/[hpf ] normal Not Available Not Available 09/20/2024 05:09:28 09/15/1909/14/2024 Urina lysis compl ete W Refle x Cultu re panel - Urine bacteria [presence] in urine by automated Urine findin g text: none seen normal Not Available Not Available 09/20/2024 05:09:28 09/15/19 25 09/14/2024 Urina lysis compl ete W Refle x Cultu re panel - Urine mucus [#/area] in urine sediment by automated count Urine findin g text: none seen Not Available Not Available 09/20/2024 05:09:28 09/15/19 25 09/14/2024 Urina lysis compl ete W Refle x Cultu re panel - Urine epithelial cells.[place] us [#/area] in urine sediment by automated count Urine findin g Not Available Not Available 05:09:28 09/15/1909/14/2024 Urina lysis compl ete W Refle x Cultu re panel - Urine hyaline casts [#/area] in urine sediment by automated count Urine findin g text: none seen Not Available Not Available 09/20/2024 05:09:28 09/15/1909/14/2024 Eryth rocyt e sedim entat ion rate [[place]] in Red Blood Cells erythrocyte sedimentatio n rate [velocity] in red blood cells 5 mm/HR low: 0mm/HR high: 20mm/H R normal Not Available Not Available 09/20/2024 05:09:28 09/15/19 25 09/14/2024 25-hy droxy vitam in D3 [Mass /volu me] in Serum or Plasm a 25-hydroxyvi tamin D3 [mass/volume ] in serum or plasma 47.1 NG/mL low: 30NG/m Lhigh: 100NG/ mL normal Not Available Not Available 09/20/2024 05:09:28 09/15/19 25 09/14/2024 Thyro tropi n [Unit s/vol ume] in Serum or Plasm a by Detec tion limit <= 0.005 mIU/L thyrotropin [units/volum e] in serum or plasma by detection limit <= 0.005 mIU/L 0.702 uIU/m L low: 0.465u IU/mLh igh: 4.68uI U/mL normal Not Available Not Available 09/20/2024 05:09:28 09/15/19 25 09/14/2024 Compr ehens katharina metab olic 1999 panel - Serum or Plasm a sodium [moles/volum e] in blood 143 mmol/ L low: 137mmo l/Lhig h: 145mmo l/L normal Not Available Not Available 09/20/2024 05:09:28 09/15/19 25 09/14/2024 Compr ehens katharina metab olic 1999 panel - Serum or Plasm a potassium [moles/volum e] in serum or plasma 4.6 mmol/ L low: 3.5mmo l/Lhig h: 5.1mmo l/L normal Not Available Not Available 09/20/2024 05:09:28 09/15/19 25 09/14/2024 Compr ehens katharina metab olic 1999 panel - Serum or Plasm a chloride [moles/volum e] in serum or plasma 105 mmol/ L low: 98mmol /Lhigh : 107mmo l/L normal Not Available Not Available 09/20/2024 05:09:28 09/15/19 25 09/14/2024 Compr ehens katharina metab olic 1999 panel - Serum or Plasm a carbon dioxide, total [moles/volum e] in serum or plasma 28 mmol/ L low: 22mmol /Lhigh : 30mmol /L normal Not Available Not Available 09/20/2024 05:09:28 09/15/19 25 09/14/2024 Compr ehens katharina metab olic 1999 panel - Serum or Plasm a anion gap in serum or plasma by calculation 14.6 mmol/ L low: 14mmol /Lhigh : 22mmol /L normal Not Available Not Available 09/20/2024 05:09:28 09/15/19 25 09/14/2024 Compr ehens katharina metab olic 1999 panel - Serum or Plasm a glucose [mass/volume ] in serum or plasma 120 mg/dL low: 70mg/d Lhigh: 99mg/d L high Not Available Not Available 09/20/2024 05:09:28 09/15/19 25 09/14/2024 Compr ehens katharina metab olic 1999 panel - Serum or Plasm a urea nitrogen [mass or moles/volume ] in serum or plasma 26 mg/dL low: 8mg/dL high: 19mg/d L high Not Available Not Available 09/20/2024 05:09:28 09/15/19 25 09/14/2024 Compr ehens katharina metab olic 1999 panel - Serum or Plasm a creatinine [mass/volume ] in serum or plasma 1.84 mg/dL low: 0.66mg /dLhig h: 1.25mg /dL high Not Available Not Available 09/20/2024 05:09:28 09/15/19 25 09/14/2024 Compr ehens katharina metab olic 2000 panel - Serum or Plasm a glomerular filtration rate [volume rate/area] in serum, plasma or blood by based on 1.73 sq M 45 1 normal Not Available Not Available 05:09:28 09/15/19 25 09/14/2024 [facility] 1999 panel - Serum or Plasm a alkaline phosphatase [enzymatic activity/vol ume] in serum or plasma 74 U/L low: 38U/Lh igh: 126U/L normal Not Available Not Available 09/20/2024 05:09:28 09/15/19 25 09/14/2024 [facility] [employer] [facility] 1999 panel - Serum or Plasm a alanine aminotransfe rase [enzymatic activity/vol ume] in serum or plasma 12 U/L low: 0U/Lhi gh: 50U/L normal Not Available Not Available 09/20/2024 05:09:28 09/15/19 25 09/14/2024 [facility] katharina [facility] 1999 panel - Serum or Plasm a aspartate aminotransfe rase [enzymatic activity/vol ume] in serum or plasma 19 U/L low: 15U/Lh igh: 46U/L normal Not Available Not Available 09/20/2024 05:09:28 09/15/19 25 09/14/2024 [facility] [employer] [facility] 1999 panel - Serum or Plasm a bilirubin.to randy [mass/volume ] in serum or plasma 0.4 mg/dL low: 0.2mg/ dLhigh : 1.3mg/ dL normal Not Available Not Available 09/20/2024 05:09:28 09/15/19 25 09/14/2024 [facility] [employer] [facility] 1999 panel - Serum or Plasm a calcium [mass/volume ] in serum or plasma 10.1 mg/dL low: 8.4mg/ dLhigh : 10.2mg /dL normal Not Available Not Available 09/20/2024 05:09:28 09/15/19 25 09/14/2024 [facility] 1999 panel - Serum or Plasm a protein [mass/volume ] in serum or plasma 7 g/dL low: 6.3g/d Lhigh: 8.2g/d L normal Not Available Not Available 09/20/2024 05:09:28 09/15/19 25 09/14/2024 Compr ehens katharina metab olic 1999 panel - Serum or Plasm a albumin [mass/volume ] in serum or plasma 4.3 g/dL low: 3.4g/d Lhigh: 5g/dL normal Not Available Not Available 09/20/2024 05:09:28 09/15/19 25 09/14/2024 Compr ehens katharina metab olic 1999 panel - Serum or Plasm a globulin [mass/volume ] in serum 2.7 g/dL low: 2.6g/d Lhigh: 4.2g/d L normal Not Available Not Available 09/20/2024 05:09:28 09/15/19 25 09/14/2024 Compr ehens katharina metab olic 1999 panel - Serum or Plasm a albumin/glob ulin [mass ratio] in serum or plasma 1.6 ratio low: 1ratio high: 2ratio normal Not Available Not Available 09/20/2024 05:09:28 09/15/19 25 09/14/2024 CBC W Auto Diffe renti al panel - Blood leukocytes [#/volume] in blood by automated count 7.7 x10'3 /uL low: 4.2x10 '3/uLh igh: 10.8x1 0'3/uL normal Not Available Not Available 09/20/2024 05:09:28 09/15/19 25 09/14/2024 CBC W Auto Diffe renti al panel - Blood erythrocytes [#/volume] in blood by automated count 5.29 x10'6 /uL low: 4.1x10 '6/uLh igh: 5.8x10 '6/uL normal Not Available Not Available 09/20/2024 05:09:28 09/15/19 25 09/14/2024 CBC W Auto Diffe renti al panel - Blood hemoglobin [mass/volume ] in blood 13.9 g/dL low: 13.2g/ dLhigh : 17g/dL normal Not Available Not Available 09/20/2024 05:09:28 09/15/19 25 09/14/2024 CBC W Auto Diffe renti al panel - Blood hematocrit [volume fraction] of blood by automated count 44.9 % low: 39.3%h igh: 50% normal Not Available Not Available 09/20/2024 05:09:28 09/15/19 09/14/2024 CBC W Auto Diffe renti al panel - Blood MCV [entitic mean volume] in red blood cells by automated count 84.9 fL low: 80fLhi gh: 97fL normal Not Available Not Available 09/20/2024 05:09:28 09/15/19 25 09/14/2024 CBC W Auto Diffe renti al panel - Blood MCH [entitic mass] by automated count 26.3 pg low: 27pghi gh: 33pg low Not Available Not Available 09/20/2024 05:09:28 09/15/19 25 09/14/2024 CBC W Auto Diffe renti al panel - Blood MCHC [entitic mass/volume] in red blood cells by automated count 31 g/dL low: 31g/dL high: 36g/dL normal Not Available Not Available 09/20/2024 05:09:28 09/15/19 25 09/14/2024 CBC W Auto Diffe renti al panel - Blood erythrocyte [distwidth] in red blood cells 19.6 % low: 11.8%h igh: 15.5% high Not Available Not Available 09/20/2024 05:09:28 09/15/19 25 09/14/2024 CBC W Auto Diffe renti al panel - Blood platelets [#/volume] in blood by automated count 172 x10'3 /uL low: 150x10 '3/uLh igh: 400x10 '3/uL normal Not Available Not Available 09/20/2024 05:09:28 09/15/19 25 09/14/2024 CBC W Auto Diffe renti al panel - Blood platelet [entitic mean volume] in blood by automated count 10.8 fL low: 9fLhig h: 12.4fL normal Not Available Not Available 09/20/2024 05:09:28 09/15/19 25 09/14/2024 CBC W Auto Diffe renti al panel - Blood neutrophils/ leukocytes in blood 60.3 % low: 39%hig h: 72% normal Not Available Not Available 09/20/2024 05:09:28 09/15/19 25 09/14/2024 CBC W Auto Diffe renti al panel - Blood lymphocytes/ leukocytes in blood 21.3 % low: 16%hig h: 47% normal Not Available Not Available 09/20/2024 05:09:28 09/15/19 25 09/14/2024 CBC W Auto Diffe renti al panel - Blood monocytes/le ukocytes in blood 14.7 % low: 5%high : 12% high Not Available Not Available 09/20/2024 05:09:28 09/15/19 25 09/14/2024 CBC W Auto Diffe renti al panel - Blood eosinophils [#/volume] in blood 2.9 % low: 1%high : 7% normal Not Available Not Available 09/20/2024 05:09:28 09/15/19 25 09/14/2024 CBC W Auto Diffe renti al panel - Blood basophils/le ukocytes in blood 0.4 % low: 0%high : 2% normal Not Available Not Available 09/20/2024 05:09:28 09/15/19 25 09/14/2024 CBC W Auto Diffe renti al panel - Blood immature granulocytes /leukocytes in blood 0.4 % low: 0%high : 0.5% normal Not Available Not Available 09/20/2024 05:09:28 09/15/19 25 09/14/2024 CBC W Auto Diffe renti al panel - Blood neutrophils [#/volume] in blood 4.64 x10'3 /uL low: 1.5x10 '3/uLh igh: 8x10'3 /uL normal Not Available Not Available 09/20/2024 05:09:28 09/15/19 25 09/14/2024 CBC W Auto Diffe renti al panel - Blood lymphocytes [#/volume] in blood 1.64 x10'3 /uL low: 1.07x1 0'3/uL high: 3.43x1 0'3/uL normal Not Available Not Available 09/20/2024 05:09:28 09/15/19 25 09/14/2024 CBC W Auto Diffe renti al panel - Blood monocytes [#/volume] in blood 1.13 x10'3 /uL low: 0.29x1 0'3/uL high: 0.99x1 0'3/uL high Not Available Not Available 09/20/2024 05:09:28 09/15/19 25 09/14/2024 CBC W Auto Diffe renti al panel - Blood eosinophils [#/volume] in blood 0.22 x10'3 /uL low: 0.02x1 0'3/uL high: 0.53x1 0'3/uL normal Not Available Not Available 09/20/2024 05:09:28 09/15/19 25 09/14/2024 CBC W Auto Diffe renti al panel - Blood basophils [#/volume] in blood 0.03 x10'3 /uL low: 0.01x1 0'3/uL high: 0.08x1 0'3/uL normal Not Available Not Available 09/20/2024 05:09:28 09/15/19 25 09/14/2024 CBC W Auto Diffe renti al panel - Blood immature granulocytes [#/volume] in blood 0.03 x10'3 /uL low: 0x10'3 /uLhig h: 0.05x1 0'3/uL normal Not Available Not Available 09/20/2024 05:09:28 09/15/19 25 09/14/2024 CBC W Auto Diffe renti al panel - Blood nucleated erythrocytes /leukocytes [ratio] in blood 0 % high: 0% normal Not Available Not Available 09/20/2024 05:09:28 09/15/19 25 09/14/2024 CBC W Auto Diffe renti al panel - Blood nucleated erythrocytes [#/volume] in blood by automated count 0 x10'3 /uL normal Not Available Not Available 09/21/19 05:09:28 05/10/19 25 05/10/2024 LDCT, chest , for lung cance r scree amy No observ ation record ed. [facility] [address] [place], [address], 07/18/2024 10:35:12 05/19/19 25 05/19/2024 myoca rdial perfu dom study w/ eject ion fract ion (PROC ) No observ ation record ed. [facility] [address], [place], [address], 07/18/2024 10:35:12 Result Notes None recorded. Problems Name Problem SNOMED Code Status Onset Date Resolution Date Notes Provider Name and Address Organization Details Recorded Time Kidney disease 15060065 Active 2017 Regino Pardo MD Attn: Accounting ,[address] [facility], [place], [address] , [facility] 4 10:31:49 Chronic congestive heart failure 35744545 Active 2017 Not Available [employer] 4 09:19:42 Major depressive disorder 066896504 Active 2017 Not Available [employer] 4 09:19:41 Moderate persistent asthma 765992112 Active 2017 Not Available [facility] 4 09:19:41 Chronic systolic heart failure 481853991 Active 2018 Not Available [employer] 4 09:19:41 Hyperlipid emia 57506261 Active 2018 Not Available [employer] 4 09:19:41 History of total knee arthroplas ty 6887945691959 Active 2019 Not Available [facility] 4 09:19:41 History of cholecyste ctomy 672648271 Active 2019 Not Available [facility] 4 09:19:41 Chronic low back pain 070272844 Active 2020 Not Available [facility] 4 09:19:41 Hyperurice dakota 17283990 Active 2020 Not Available [facility] 4 09:19:41 History of polyp of colon 216125318 Active 2021 Not Available [employer] 4 09:19:41 Chronic anemia 911492471 Active 2021 Not Available [facility] 4 09:19:41 Staghorn calculus 276957602 Active 2023 Not Available [employer] 4 09:19:41 Tubular adenomatou s polyp of colon 990790325 Active 2023 Regino Pardo MD Attn: Accounting ,[address] [facility], [place], [address] , [place] [facility] 4 12:29:39 History of calculus of kidney 355151327 Active 2023 Regino Pardo MD Attn: Accounting ,[address] [facility], [place], [address] , [place] - [facility] 4 12:29:57 Benign hypertensi on 22676164 Active Regino Pardo MD Attn: Accounting ,[address] [facility], [place], [address] , [place] - [facility] 4 11:10:17 Essential hypertensi on 45069924 Active 2023 Regino Pardo MD Attn: Accounting ,[address] [facility], [place], [address] , [place] - [facility] 4 11:09:55 Erectile dysfunctio n 228540210 Active 2024 Regino Pardo MD Attn: Accounting ,[address] [facility], [place], [address] , [place] - [facility] 5 14:44:45 Uncontroll ed type 2 diabetes mellitus 624910983 Active Not Available [facility] 4 09:19:41 Obstructiv e sleep apnea syndrome 53498902 Active Not Available [facility] 4 09:19:41 Neuropathy due to diabetes mellitus 788213133 Active Not Available [facility] 4 09:19:41 Blood in urine 49663247 Active Not Available [facility] 4 09:19:41 Hematochez ia 074079225 Active Not Available [facility] 4 09:19:41 Vitamin D deficiency 67767013 Active Not Available [facility] 4 09:19:41 Benign essential hypertensi on 9584610 Active Not Available [facility] 4 09:19:41 Neck pain 10327174 Active Not Available [facility] 4 09:19:42 Diabetes mellitus 60041646 Active Not Available [facility] 4 09:19:41 Pure hyperchole sterolemia 781665728 Active Not Available [facility] 4 09:19:41 Tobacco user 477879271 Active Not Available [facility] 4 09:19:41 Type 2 diabetes mellitus without complicati on 171447523 Active Not Available [facility] 4 09:19:41 Seizure disorder 146747992 Active Not Available [facility] 4 09:19:41 Disorder of lipid metabolism 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 Patient : 1965. Patient . Regino Pardo MD Attn: Accounting,[address] [place], [address], [place] [facility] 07/18/2024 10:35:14 Procedures Surgical History Date Name Laterality Status Provider Name and Address Organization Details Recorded Time 10/07/19 25 colonoscopy completed Regino Pardo MD Attn: Accounting, [address] [place], [address], [place] [facility] 10/17/2024 07:22:41 07/19/19 25 Diabetic Foot Exam completed Regino Pardo MD Attn: Accounting, [address] [facility], [place], [address], [place] [facility] 07/18/2024 14:06:53 04/27/20 24 colonoscopy completed Regino Pardo MD Attn: Accounting, [address] [facility], [place], [address], [place] [facility] 05/17/2024 13:50:56 02/28/20 24 hemorrhoidectomy completed Gris Mcdonnell [place] [facility] 03/29/2024 14:15:46 02/11/20 24 flexible fiberoptic sigmoidoscopy completed Regino Pardo MD Attn: Accounting, [address] [facility], [place], [address], [place] [facility] 02/14/2024 10:57:54 08/26/19 24 colonoscopy completed Regino Pardo MD Attn: Accounting, [address] [place], [address], [place] [facility] 08/26/2023 19:23:23 04/28/20 23 Diabetic Foot Exam completed Regino Pardo MD Attn: Accounting, [address] [facility], [place], [address], [place] [facility] 04/28/2023 13:27:22 03/13/20 22 capsule endoscopy completed Regino Pardo MD Attn: Accounting, [address] [place], [address], [place] [facility] 03/30/2022 13:52:59 03/06/20 20 arthroplasty of knee completed Regino Pardo MD Attn: Accounting, [address] [place], [address], [place] [facility] 04/15/2020 09:17:28 10/18/19 20 laparoscopic cholecystectomy completed Regino Pardo MD Attn: Accounting, [address] [place], [address], [place] [facility] 10/23/2019 16:04:58 09/12/19 16 colonoscopy completed Regino Pardo MD Attn: Accounting, [address] [place], [address], [place] [facility] 04/15/2020 09:42:53 Other completed Regino Pardo MD Attn: Accounting, [address] [place], [address], [place] [facility] 09/10/2015 14:24:18 Arthroscopic Surgery completed Regino Pardo MD Attn: Accounting, [address] [place], [address], [place] [facility] 09/10/2015 14:24:18 Imaging Results None recorded. Procedure Notes None recorded. Medical Equipment None Reported. Allergies Allergen ID Allergen Name Allergen Category Reaction Reaction Severity Criticality Documentation Date Start Date Code Code System Note Provider Name and Address Organization Details Recorded Time 924729 Anoro medicatio n itching mild Not available 04/28/20192018 53987 20 RxNorm Regino Pardo MD Attn: Michael casas,[address] [facility], [place], [address], [facility] 9 10:17:48 Medications Name Sig Start Date Stop Date Status Note LastModified by Organization Details LastModified Time Prescript ion - Prior Authoriza tion Request 04/28 completed Not Available Not Available Not Available amoxicill in 500 mg capsule 10/19 completed Not Available Not Available Not Available Flomax 0.4 mg capsule Take 1 capsule every day by oral route. 04/17 completed Not Available Not Available Not Available furosemid e 40 mg tablet Take 1 tablet twice a day by oral route. 09/05 completed He can stop K if he is not taking Lasix Not Available Not Available Not Available atorvasta tin 40 mg tablet TAKE 1 TABLET BY MOUTH EVERY DAY 03/14 completed Not Available Not Available Not Available carvedilo l 25 mg tablet Take 2 tablets twice a day by oral route as directed . 12/30 completed Not Available Not Available Not Available nitrofura ntoin macrocrys randy 50 mg capsule 04/19 completed Not Available Not Available Not Available ropinirol e 1 mg tablet Take 1 tablet every day by oral route at bedtime for 30 days. 02/22 completed Not Available Not Available Not Available nabumeton e 750 mg tablet Take 1 tablet twice a day by oral route. 04/17 completed Not Available Not Available Not Available azithromy lonny 250 mg tablet FOLLOW PACKAGE DIRECTIO NS 07/30 completed Not Available Not Available Not Available ibuprofen 800 mg tablet 02/07 completed Not Available Not Available Not Available nifedipin e ER 90 mg tablet,ex tended release TAKE 1 TABLET BY MOUTH EVERY DAY active Not Available Not Available No t Available fluconazo le 150 mg tablet active Not Available Not Available Not Available metoprolo l succinate ER 50 mg tablet,ex tended release 24 hr Take 1 tablet every day by oral route for 90 days. 04/15 completed On Carvedil ol Not Available Not Available Not Available hydrocodo ne 5 mg-acetam inophen 325 mg tablet TAKE 1 TABLET BY MOUTH EVERY 6 HOURS FOR UP TO 7 DAYS NEEDED FOR PAIN 03/29 completed Not Available Not Available Not Available senna 8.6 mg tablet TAKE 2 TABLETS BY MOUTH AT NIGHT ON A TWICE WEEKLY BASIS active Not Available Not Available No t Available meloxicam 15 mg tablet TAKE 1 TABLET BY MOUTH EVERY DAY WITH FOOD NEEDED 08/13 completed Not Available Not Available Not Available ondansetr on HCl 4 mg tablet 10/14 completed Not Available Not Available Not Available spironola ctone 100 mg tablet TAKE 1 TABLET BY MOUTH EVERY DAY active Not Available Not Available No t Available clonidine HCl 0.3 mg tablet Take 1 tablet twice a day by oral route as directed . 02/22 completed Not Available Not Available Not Available valsartan 80 mg tablet 05/27 completed Not Available Not Available Not Available meclizine 12.5 mg tablet 04/19 completed Not Available Not Available Not Available phenytoin sodium extended 100 mg capsule TAKE 2 CAPSULES BY MOUTH TWICE DAILY active Not Available Not Available No t Available chlorthal idone 25 mg tablet TAKE 1 TABLET BY MOUTH EVERY DAY active Not Available Not Available No t Available amlodipin e 5 mg tablet 02/07 completed Not Available Not Available Not Available chlorthal idone 50 mg tablet Take 1 tablet every day by oral route. active Not Available Not Available No t Available allopurin ol 100 mg tablet TAKE 1 TABLET BY MOUTH DAILY active Not Available Not Available No t Available ciproflox acin 500 mg tablet TAKE 1 TABLET BY MOUTH TWICE DAILY 04/19 completed Not Available Not Available Not Available sulfameth oxazole 800 mg-trimet hoprim 160 mg tablet TAKE 1 TABLET BY MOUTH EVERY 12 HOURS AROUND THE CLOCK FOR 5 DAYS 07/22 completed Not Available Not Available Not Available peg-elect rolyte solution 420 gram oral solution 09/09 completed Not Available Not Available Not Available minoxidil 2.5 mg tablet TAKE 2 TABLETS BY MOUTH TWICE DAILY DIRECTED 04/28 completed Not Available Not Available Not Available sildenafi l 100 mg tablet Take 1 TABLET BY MOUTH 1 HOUR PRIOR TO SEXUAL ACTIVITY DIRECTED , NOT TO EXCEED 1 IN 24 HOURS. active Not Available Not Available No t Available glimepiri de 2 mg tablet Take 1 tablet every day by oral route for 90 days. 06/26 completed Not Available Not Available Not Available carvedilo l 3.125 mg tablet Take 1 tablet twice a day by oral route as directed for 90 days. active Not Available Not Available No t Available fenofibra te micronize d 134 mg capsule TAKE 1 CAPSULE BY MOUTH DAILY 05/29 completed Not Available Not Available Not Available glimepiri de 1 mg tablet TAKE 1 TABLET BY MOUTH DAILY WITH A MEAL 10/10 completed Not Available Not Available Not Available Niaspan 1,000 mg tablet,ex tended release Take 1 tablet every day by oral route. active Not Available Not Available No t Available meloxicam 7.5 mg tablet Take 1 tablet every day by oral route for 20 days. 08/13 completed Not Available Not Available Not Available carbamaze pine 200 mg tablet TAKE 1 TABLET BY MOUTH THREE TIMES DAILY active Not Available Not Available No t Available oxycodone -acetamin ophen 5 mg-325 mg tablet 03/29 completed Not Available Not Available Not Available clonidine HCl 0.2 mg tablet Take 1 tablet twice a day by oral route. 05/27 completed Not Available Not Available Not Available potassium chloride ER 20 mEq tablet,ex tended release(p art/cryst ) TAKE 1 TABLET BY MOUTH TWICE DAILY DIRECTED (Discont inued) 04/15 completed Not Available Not Available Not Available famotidin e 20 mg tablet TAKE 1 TABLET BY MOUTH DAILY FOR HEARTBUR N 2024 active Not Available Not Available Not Avai lable nifedipin e ER 60 mg tablet,ex tended release 24 hr TAKE 1 TABLET BY MOUTH EVERY DAY 09/24 completed Increase d to 90 mg on 3. Amlodipi ne was also stopped on 3 Not Available Not Available Not Available ropinirol e 0.25 mg tablet 05/29 completed Not Available Not Available Not Available OneTouch Ultra Test strips USE TO TEST BLOOD SUGAR THREE TIMES DAILY NEEDED active Not Available Not Available No t Available baclofen 10 mg tablet Take 1 tablet every 8 hours by oral route for 10 days. 05/27 completed Not Available Not Available Not Available amlodipin e 10 mg tablet TAKE 1 TABLET BY MOUTH DAILY 09/24 completed On Nifedipi ne 60 mg Not Available Not Available Not Available hydrocodo ne 7.5 mg-acetam inophen 325 mg tablet TAKE 1 TABLET BY MOUTH EVERY 6 HOURS active Not Available Not Available No t Available chlorprom azine 25 mg tablet TAKE 1 TABLET BY MOUTH EVERY 6 TO 8 HOURS NEEDED DIRECTED FOR HICCUPS active Not Available Not Available No t Available glimepiri de 4 mg tablet Take 1 tablet every day by oral route for 90 days. 03/14 completed Not Available Not Available Not Available valsartan 320 mg tablet Take 1 tablet every day by oral route for 90 days. 07/10 completed pt states made him sick with diarreah . put on 160 mg tablet Not Available Not Available Not Available hydrochlo rothiazid e 12.5 mg capsule active Not Available Not Available Not Available gabapenti n 300 mg capsule TAKE 1 CAPSULE BY MOUTH EVERY DAY DIRECTED 2024 active Not Available Not Available Not Avai lable aspirin 81 mg chewable tablet Chew 1 tablet every day by oral route. active Not Available Not Available No t Available Keppra 750 mg tablet Take 1 tablet twice a day by oral route. 01/25 completed Not Available Not Available Not Available monteluka st 10 mg tablet TAKE 1 TABLET BY MOUTH EVERY DAY active Not Available Not Available No t Available hydralazi ne 50 mg tablet 06/26 completed Not Available Not Available Not Available furosemid e 20 mg tablet 05/27 completed Not Available Not Available Not Available ergocalci ferol (vitamin D2) 1,250 mcg (50,000 unit) capsule TAKE ONE CAPSULE BY MOUTH ONCE A WEEK active Not Available Not Available No t Available azelastin e 137 mcg (0.1 %) nasal spray SPRAY ONCE IN EACH NOSTRIL TWICE DAILY 07/18 completed Not Available Not Available Not Available ibuprofen 600 mg tablet 05/05 completed Not Available Not Available Not Available cefuroxim e axetil 500 mg tablet 03/10 completed Not Available Not Available Not Available levofloxa lonny 500 mg tablet 01/06 completed Not Available Not Available Not Available methylpre dnisolone 4 mg tablets in a dose pack FOLLOW PACKAGE DIRECTIO NS 07/30 completed Not Available Not Available Not Available Phenytek 200 mg capsule TAKE ONE CAPSULE BY MOUTH ONCE DAILY active Not Available Not Available No t Available albuterol sulfate HFA 90 mcg/actua tion aerosol inhaler Inhale 2 puffs every 4 hours by inhalati on route as needed. 11/18 completed Because , my pulmonol ogist said, they were not even doing no good Not Available Not Available Not Available lisinopri l 40 mg tablet one po BID 04/17 completed Not Available Not Available Not Available losartan 100 mg tablet Take 1 tablet every day by oral route. active Not Available Not Available No t Available fluticaso ne propionat e 50 mcg/actua tion nasal spray,[employer] SHAKE LIQUID AND USE 2 SPRAYS IN EACH NOSTRIL EVERY DAY DIRECTED 07/18 completed Not Available Not Available Not Available metformin ER 500 mg tablet,ex tended release 24 hr TAKE 2 TABLETS BY MOUTH EVERY DAY IN THE MORNING 07/07 completed Not Available Not Available Not Available sertralin e 50 mg tablet TAKE 1 TABLET BY MOUTH EVERY DAY active Not Available Not Available No t Available calcitrio l 0.25 mcg capsule TAKE 1 CAPSULE BY MOUTH TWICE DAILY active Not Available Not Available No t Available ipratropi um bromide 21 mcg (0.03 %) nasal spray USE 1 TO 2 SPRAYS IN EACH NOSTRIL THREE TIMES DAILY 07/18 completed Not Available Not Available Not Available spironola ctone 50 mg tablet 01/13 completed Not Available Not Available Not Available diazepam 5 mg tablet 04/19 completed Not Available Not Available Not Available amoxicill in 875 mg-potass ium clavulana te 125 mg tablet 04/15 completed Not Available Not Available Not Available valsartan 160 mg tablet Take 2 tablets every day by oral route. 02/22 completed Not Available Not Available Not Available azithromy lonny 500 mg tablet 03/14 completed Not Available Not Available Not Available Zetia 10 mg tablet Take 1 tablet every day by oral route. 2013 active Not Available Not Available Not Avai lable Novolog FlexPen U-100 Insulin aspart 100 unit/mL (3 mL) subcutane ous ADMINIST ER 17 UNITS UNDER THE SKIN THREE TIMES DAILY BEFORE MEALS 07/18 completed Not Available Not Available Not Available cyclobenz aprine 5 mg tablet TAKE 1 TABLET BY MOUTH THREE TIMES DAILY FOR 14 DAYS DIRECTED 11/18 completed Not Available Not Available Not Available rosuvasta tin 40 mg tablet TAKE 1 TABLET BY MOUTH EVERY DAY DIRECTED active Not Available Not Available No t Available Spiriva with [employer] r 18 mcg and inhalatio n capsules Inhale 1 capsule every day by inhalati on route. 10/08 completed Not Available Not Available Not Available metformin ER 500 mg tablet,ex tended release 24hr (osmotic) Take 2 tablets every day by oral route. active Not Available Not Available No t Available nitrofura ntoin monohydra te/macroc rystals 100 mg capsule 03/29 completed Not Available Not Available Not Available Gas Relief Extra Strength 125 mg chewable tablet TAKE 1 TABLET BY MOUTH FOUR TIMES DAILY NEEDED active Not Available Not Available No t Available Boostrix Tdap 2.5 Lf unit-8 mcg-5 Lf/0.5 mL intramusc ular suspensio n 09/16 completed Not Available Not Available Not Available potassium chloride 09/17 completed Not Available Not Available Not Available Sinus 02/07 completed Not Available Not Available Not Available Zyrtec active Not Available Not Availa ble Not Available Metamucil TID active Not Available Not Yulisa ilable Not Available Tylenol Arthritis Pain active Not Available Not Available Not Available Afrin (oxymetaz oline) PRN 02/07 completed Not Available Not Available Not Available PreserVis ion AREDS 2018 active Not Available Not Available Not Avai lable levetirac etam 1,000 mg tablet TAKE 1 AND 1/2 TABLETS BY MOUTH TWICE DAILY active Not Available Not Available No t Available FeroSul 325 mg (65 mg iron) tablet TAKE 1 TABLET BY MOUTH EVERY DAY 07/07 completed Not Available Not Available Not Available Bystolic 10 mg tablet Take 1 tablet every day by oral route. active Not Available Not Available No t Available Vimpat 50 mg tablet one po bid 04/17 completed Not Available Not Available Not Available Suprep Bowel Prep Kit 17.5 gram-3.13 gram-1.6 gram oral solution MIX AND DRINK DIRECTED 07/22 completed Not Available Not Available Not Available Xarelto 10 mg tablet 04/15 completed Not Available Not Available Not Available OneTouch Verio IQ Meter kit Test once a day 2016 active Not Available Not Available Not Avai lable Edarbyclo r 40 mg-12.5 mg tablet Take 1 tablet every day by oral route. 09/09 completed Not Available Not Available Not Available omega 3 183.3 mg-dha 75 mg-epa 91.6 mg-fish oil 306 mg capsule Take by oral route. active Not Available Not Available No t Available Stimulant Laxative Plus 8.6 mg-50 mg tablet TAKE 2 TABLET BY MOUTH TWICE DAILY active Not Available Not Available No t Available Anoro Ellipta 62.5 mcg-25 mcg/actua tion powder for inhalatio n 04/21 completed Itching Not Available Not Available Not Available Entresto 97 mg-103 mg tablet TAKE 1 TABLET BY MOUTH TWICE DAILY active Not Available Not Available No t Available Entresto 49 mg-51 mg tablet Take 1 tablet twice a day by oral route for 90 days. 08/13 completed Not Available Not Available Not Available Entresto 24 mg-26 mg tablet Take 2 tablets twice a day by oral route as directed . 05/27 completed Not Available Not Available Not Available Allergy 02/07 completed Not Available Not Available Not Available naloxone 4 mg/actuat ion nasal spray CALL 911. SPR CONTENTS OF ONE SPRAYER (0.1ML) INTO ONE NOSTRIL. REPEAT IN 2-3 MIN IF SYMPTOMS OF OPIOID EMERGENC Y PERSIST, ALTERNAT E NOSTRILS 07/18 completed Not Available Not Available Not Available Fish Oil 1,000 mg (120 mg-180 mg) capsule Take 1 capsule every day by oral route. active Not Available Not Available No t Available Basaglar KwikPen U-100 Insulin 100 unit/mL (3 mL) subcutane ous ADMINIST ER 50 UNITS UNDER THE SKIN EVERY NIGHT active 48 Not Available Not Available No t Available Fiasp FlexTouch U-100 Insulin 100 unit/mL (3 mL) subcutane ous pen ADMINIST ER 15 UNITS UNDER THE SKIN THREE TIMES DAILY BEFORE MEALS active Not Available Not Available No t Available Shingrix (PF) 50 mcg/0.5 mL intramusc ular suspensio n, kit ADMINIST ER 0.5ML IN THE MUSCLE DIRECTED 02/24 /2021 completed Not Available Not Available Not Available BD Tess 2nd Gen Pen Needle 32 gauge x /32 USE WITH INJECTIO NS FOUR TIMES DAILY active Not Available Not Available No t Available OneTouch Ultra2 Meter USE DIRECTED active Not Available Not Available No t Available OneTouch Delica Plus Lancet 33 gauge USE TO TEST BLOOD SUGAR THREE TIMES DAILY active Not Available Not Available No t Available Fluzone Quad (PF) 60 mcg (15 mcg x 4)/0.5 mL IM syringe ADMINIST ER 0.5ML IN THE MUSCLE DIRECTED 11/18 completed Not Available Not Available Not Available Vitals Date Recorded Body height Body mass index (BMI) Body weight Body temperature Oxygen saturation Oxygen saturation in Arterial blood by Pulse oximetry Heart rate Systolic And Diastolic Provider Name and Address Organization Details Last Updated DateTime 5 185.42 cm 28.5 kg/m2 94161.9 5 g 98.3 [degF] 95 % 95 % 74 /min 124/86 mm[Hg] Gris Mcdonnell MA [facility] 5 10:03:27 Date Recorded Body height Body mass index (BMI) Body weight Heart rate Oxygen saturation Oxygen saturation in Arterial blood by Pulse oximetry Respiratory rate Systolic And Diastolic Provider Name and Address Organization Details Last Updated DateTime 5 185.42 cm 28.7 kg/m2 26040.4 2 g 72 /min 99 % 99 % 16 /min 120/86 mm[Hg] Gris Mcdonnell MA [facility] 5 11:09:40 Date Recorded Body height Body mass index (BMI) Body weight Body temperature Heart rate Oxygen saturation Oxygen saturation in Arterial blood by Pulse oximetry Respiratory rate Systolic And Diastolic Provider Name and Address Organization Details Last Updated DateTime 5 185.42 cm 29 kg/m2 71149.5 3 g 98.4 [degF] 76 /min 95 % 95 % 14 /min 114/74 mm[Hg] Gris Mcdonnell MA [facility] 5 11:20:24 Date Recorded Body height Body mass index (BMI) Body weight Heart rate Oxygen saturation Oxygen saturation in Arterial blood by Pulse oximetry Body temperature Respiratory rate Systolic And Diastolic Provider Name and Address Organization Details Last Updated DateTime 5 185.42 cm 28.6 kg/m2 70427.5 4 g 94 /min 95 % 95 % 98.9 [degF] 16 /min 116/90 mm[Hg] Gris Mcdonnell [place] [facility] 5 11:27:20 Date Recorded Body height Body mass index (BMI) Body weight Heart rate Oxygen saturation Oxygen saturation in Arterial blood by Pulse oximetry Respiratory rate Systolic And Diastolic Provider Name and Address Organization Details Last Updated DateTime 4 185.42 cm 26.5 kg/m2 86048.0 7 g 78 /min 98 % 98 % 18 /min 116/80 mm[Hg] Gris Mcdonnell [place] [facility] 4 10:25:47 Social History Question Answer Notes LastModified by Organizat ion Details LastModified Time Tobacco Smoking Status Current Every Day Smoker Less than half a pack a day 04/28/2023 Regino Pardo MD Attn: [facility],[address] [place], [address], [facility] 04/28/2023 13:01:50 Are You Blind Or Do You Have Difficulty Seeing? No Information not available 06/26/2020 What Is Your Level Of Caffeine Consumption? Occasional Information not available 10/11/2019 In The 14 Days Before Symptom Onset, Have You Had Close Contact With A Laboratory-confi rmed COVID-19 While That Case Was Ill? No Information not available 11/18/2020 In The 14 Days Before Symptom Onset, Have You Had Close Contact With A Person Who Is Under Investigation For COVID-19 While That Person Was Ill? No Information not available 11/18/2020 Have You Been To An Area Known To Be High Risk For COVID-19? Yes Information not available 11/18/2020 Are You Deaf Or Do You Have Serious Difficulty Hearing? No Information not available 06/26/2020 What Type Of Diet Are You Following? REGULAR Information not available 10/11/2019 Are There Any Guns Present In Your Home? No Information not available 06/26/2020 Hard Of Hearing Or Deaf In One Or Both Ears? No Information not available 10/11/2019 What Was The Date Of Your Most Recent Tobacco Screening? 11/02/2024 Information not available 11/02/2024 What Is Your Current Pack Years? 30ormorepacky ears Information not available 04/28/2023 Smoke Alarm In Home Yes Information not available 10/11/2019 Do You Have Smoke And Carbon Monoxide Detectors In Your Home? Yes Information not available 06/26/2020 At What Age Did You Start Smoking Tobacco? 13 Information not available 11/18/2020 How Much Tobacco Do You Smoke? 0.5 PPD asavala Information not available 04/20/2014 Do You Use Sunscreen Routinely? No Information not available 06/26/2020 Has Tobacco Cessation Counseling Been Provided? Yes Information not available 10/19/2018 On What Date Was Tobacco Cessation Counseling Provided? 07/18/2024 Information not available 07/18/2024 How Many Years Have You Smoked Tobacco? 36 1-1.5 For Sevceral Years (10-15) 0.5 Ppd 6 Months Ago <0.5 Ppd Stopped For 6 Months Information not available 04/28/2023 Sex: Unknown Functional Status Question Answer Note LastModified by Organizat ion Details LastModified Time Do you use any illicit or recreational drugs? No Information not available 11/18/2020 Do you or have you ever used any other forms of tobacco or nicotine? No Information not available 04/28/2023 What is your level of alcohol consumption? None Information not available 10/11/2019 Are you able to care for yourself? Yes Information not available 06/26/2020 Mental Status None recorded. Family History Relationship Description Onset Age of this Age Resolved Age Notes LastModified by Organization Details LastModified Time Mother Asthma [email or web address] Not available 16:33:01 Mother Diabetes mellitus [email or web address] Not available 2014 16:33:01 Mother Hypertensive disorder [email or web address] Not available 2014 16:33:01 Mother Hypercholest erolemia [email or web address] Not available 2014 16:33:01 Medical History Condition Response Coronary Artery Disease Y Other N High Blood Pressure Y Atrial Fibrillation N Kidney or Bladder Problems Y Thyroid Problems Y GI Problems N Depression Y COPD Y Blood Clots N Skin Problems N Anemia N Heart Attack (PR) N Anxiety Disorder N Diabetes Y Muscle, Joint, or Bone Problems Y Seizures/Epilepsy Y Acid Reflux (GERD) N Cancer N Stroke N Asthma N Allergies N High Cholesterol Y Hepatitis N Liver Disease N Headaches N Heart Failure N Osteoporosis N Immunizations Vaccine Type Date Status Note Provider Nam e and Address Organization Details Recorded Time Tdap 6 completed Not Available [facility] 05/20/2019 02:30:21 Influenza, split virus, quadrivalent, preservative 0 completed Not Available [facility] 06/22/2023 09:19:42 zoster recombinant 0 completed Not Available [facility] 06/22/2023 09:19:42 Influenza, split virus, quadrivalent, preservative 1 completed Not Available [facility] 06/22/2023 09:19:42 Influenza, split virus, quadrivalent, preservative 6 completed Not Available [facility] 05/20/2019 02:32:31 COVID-19, mRNA, LNP-S, PF, 30 mcg/0.3 mL dose 1 completed Not Available [facility] 06/22/2023 09:19:42 influenza, unspecified formulation 9 completed Not Available [facility] 06/22/2023 09:19:43 Influenza, split virus, quadrivalent, PF 8 completed Not Available [facility] 06/22/2023 09:19:43 COVID-19, mRNA, LNP-S, PF, 30 mcg/0.3 mL dose 1 completed Not Available [facility] 06/22/2023 09:19:42 Influenza, split virus, trivalent, preservative 4 completed Not Available [facility] 06/22/2023 09:19:43 Influenza, split virus, quadrivalent, PF 0 completed Not Available [facility] 06/22/2023 09:19:43 Pneumococcal conjugate PCV 13 5 completed Not Available [facility] 06/22/2023 09:19:43 Influenza, split virus, trivalent, preservative 1 completed Not Available [facility] 06/22/2023 09:19:43 zoster recombinant 1 completed Not Available [facility] 06/22/2023 09:19:42 pneumococcal polysaccharide PPV23 3 completed Not Available [facility] 06/22/2023 09:19:43 COVID-19, mRNA, LNP-S, PF, 30 mcg/0.3 mL dose 1 completed Not Available [facility] 06/22/2023 09:19:42 Influenza, split virus, quadrivalent, preservative 5 completed Not Available [facility] 06/22/2023 09:19:42 Influenza, split virus, quadrivalent, preservative 2 completed Not Available [facility] 06/22/2023 09:19:42 Influenza, MDCK, quadrivalent, PF 2 completed Not Available [facility] 06/22/2023 09:19:42 SARS-COV-2 (COVID-19) vaccine, UNSPECIFIED 1 completed Not Available [facility] 06/22/2023 09:19:42 SARS-COV-2 (COVID-19) vaccine, UNSPECIFIED 1 completed Not Available [facility] 06/22/2023 09:19:42 COVID-19, mRNA, LNP-S, bivalent, PF, 50 mcg/0.5 mL or 25mcg/0.25 mL dose 2 completed Not Available [facility] 06/22/2023 09:19:42 influenza, unspecified formulation 3 completed [place], [place] [facility] 09/16/2023 16:54:47 Influenza, split virus, quadrivalent, PF 3 completed R[place] [facility] 09/16/2023 16:54:47 RSV, recombinant, protein subunit RSVpreF, adjuvant reconstituted, 0.5 mL, PF 4 completed Not Available [facility] 11/02/2024 11:12:54 Influenza, split virus, quadrivalent, preservative 7 completed Not Available [facility] 05/20/2019 02:49:13 pneumococcal polysaccharide PPV23 3 completed Not Available [facility] 06/22/2023 09:19:43 Influenza, high-dose, trivalent, PF 4 completed Not Available [facility] 06/22/2023 09:19:43 Influenza, split virus, quadrivalent, preservative 9 completed Not Available [facility] 05/20/2019 02:38:12 Influenza, split virus, trivalent, preservative 4 completed Gris Mcdonnell MA [facility], [place] [facility] 04/19/2024 17:25:05 Influenza, split virus, quadrivalent, preservative 8 completed Not Available [facility] 06/22/2023 09:19:42 Past Encounters Encounter ID Performer Location Encounter Start Date Encounter Closed Date Diagnosis/Indication Diagnosis SNOMED-CT Code Diagnosis ICD10 Code Diagnosis Note [id number] [facility] [address] [place] [address] [phone] 04/20/2014 14:48:34 04/24/2014 03:51:44 Benign essential hypertension [id number] Previously relatively controlled 130/90 on the last visit 10/09/13, he states that he forgot to take his meds today. He also follows up with the nephrologi st Dr. THOMAS Salas. Neck pain 06218062 MRI (04/10/14) was discussed in detail, findings include disc bulges with mass effect, degenerati ve disease, moderate to severe central canal stenosis , I would recommend interventi onal pain management and if there is no improvemen t he can discuss this with his neurologis t, Dr. Clay and or one can initiate a neurosurgi zainab referral. I however do not see an immediate need for neurosurgi zainab interventi on at this time. This may explain some of his upper extremity neuropathi c symptoms Diabetes mellitus 25795414 Eye exam, he states that they don't do it but every two years Pure hypercholesterolemia 252217933 Not optimal with Lopid, will add Zetia 10 mg po daily: Tobacco user 427279191 C essation was discussed [id number] MD Lauren Nugent (Adult Med) [address] [place] [address] [phone] 07/20/2014 14:21:41 07/20/2014 17:09:02 Benign hypertension [id number] Still uncontroll ed despite multiple meds that he has been compliant with all his meds. he denies any alcohol intake and denies any headaches, double vision or blurred vision. Obtain labs and follow up next week with his medication bottles. He probably should also see his Nephrologi st and cardiologi st. He has refused an ER evaluation , he states I feel good. I have spoken with his nephrologi st, Dr. THOMAS Salas, who will see him today. Diabetes mellitus 59281884 Eye exam needed, his HBA1C is great. [id number] MD Lauren Nugent (Adult Med) [address] [place] [address] [phone] 09/17/2014 15:38:11 09/17/2014 16:30:57 Benign essential hypertension 2040989 Uncontroll ed, but better than on his last visit. Uncontroll ed type 2 diabetes mellitus 223423252 Increase Metformin to 1000mg po daily and add Amaryl 1mg po daily. His labs were discussed with him in detail Tobacco user [id number] C essation was discussed [id number] MD Lauren Nugent (Adult Med) [address] [place] [address] [phone] 0 11/07/2014 15:52:39 11/07/2014 17:16:30 Benign hypertension 77894660 Still uncontroll ed despite multiple meds that he has been compliant with. He denies any alcohol intake and denies any headaches, double vision or blurred vision. He says he has not seen a sleep physician for over 10 years, he however has been compliant with his CPAP Uncontroll ed type 2 diabetes mellitus 452964501 On Metformin 1000mg po daily and Amaryl 1mg po daily Eye exam next month Obstructiv e sleep apnea syndrome 02223931 He needs to re-establi sh care with a sleep physician [id number] MD Lauren Nugent (Adult Med) [address] [place] [address] [phone] 01/18/2015 15:03:43 01/18/2015 16:21:00 Influenza vaccine needed [id number] 106 Diabetes mellitus 22764684 Eye exam was done, his HBA1C is great. Benign hypertension 32266305 Still uncontroll ed despite multiple meds that he has been compliant with. He denies any alcohol intake and denies any headaches, double vision or blurred vision. He had Minoxidil added to his regimen, his Amlodipine was discontinu ed. He had sleep studies done and he will be seeing a new sleep physician. [id number] MD Lauren Nugent (Adult Med) [address] [place] [address] [phone] 04/17/2015 14:48:38 04/17/2015 15:59:51 Benign hypertension 56966092 I10 Still uncontroll ed despite multiple meds that he has been compliant with. He denies any alcohol intake and denies any headaches, double vision or blurred vision. He has also been using his CPAP He had Minoxidil and Endarbyclo r added to his regimen, he has an appointmen t in June with Dr Keys. I have discussed this with both Lili Keys and THOMAS Salas, the plan is to get the renal team to help with his BP. Dr THOMAS Salas wants renal vascular studies done, he should continue the current regimen, decrease his salt intake and follow up with Dr. THOMAS Salas. Neuropathy due to diabetes mellitus 654199077 E11.40 This will be discussed in further detail on his next visit Diabetes mellitus 324795 09 E11.9 [id number] MD Lauren Nugent (Adult Med) [address] [place] [address] [id number] 05/29/2015 16:08:59 05/29/2015 17:07:03 Benign hypertension 64942121 I10 Still uncontroll ed despite multiple meds, he will be seeing Dr. Salas soon, I do no not have much to add other than the fact that his Coreg 25mg should be BID. If that fails one may need to push his Coreg to 50mg po bid Pure hypercholesterolemia 509874500 E78.0 Not optimal on fenofibrat e, start Atorvastat in 40mg po daily, side effects were discussed. Discontinu e fenofibrat e [id number] MD Lauren Nugent (Adult Med) [address] [place] [address] [id number] 07/30/2015 15:58:01 07/30/2015 16:53:24 Benign hypertension 18484521 I10 Better today on multiple meds, the only issue is the Clonidine, he was previously on 0.3mg po bid, he however states that his last refill was only 0.2mg po bid. We will continue to monitor him on the current dose. Blood in urine 01815442 R31.9 He remains asymptomat ic and he does not have a history of nephrolith iasis, he had an US of the kidneys in July 2014 (The report is pending) Hematochezia 361988845 K 62.5 His last colonoscop y was in 2007, he denies any history of constipati on or abdominal pain Vitamin D deficiency 347 58318 E55.9 [id number] MD Lauren Nugent (Adult Med) [address] [place] [address] [id number] 09/10/2015 13:28:32 09/11/2015 15:11:30 Benign hypertension 22062703 I10 Much better today on his new regimen. Type 2 carley betes mellitus without complication 683752735 E11.9 On Metformin 1000mg po daily and Amaryl 1mg po daily, BS 110-145 Active or passive immunization 674008234 Z23 [id number] MD Lauren Nugent (Adult Med) [address] [place] [address] [phone] [id number] 01/14/2016 12:14:40 01/14/2016 13:21:58 Influenza vaccine needed 4836340825 106 Z23 Uncontroll ed type 2 diabetes mellitus 311637383 E11.65 Uncontroll ed on Metformin 1000mg po daily and Amaryl 1mg po daily, I will increase his Amaryl to 2mg po daily, side effects were discussed. Seizure disorder 6241435 02 G40.909 Disorder o f lipid metabolism 736382134 E78.9 [id number] MD Lauren Nugent (Adult Med) [address] [place] [address] [id number] 05/27/2016 16:23:42 05/27/2016 17:24:07 Uncontrolled type 2 diabetes mellitus 008953719 E11.65 Improvemen t noted with Metformin 1000mg po daily and Amaryl 2 mg po daily,He has requested a new glucometer Benign ess ential hypertension 7580932 I10 Uncontroll ed despite what may be perceived as polypharma cy.Weight loss.Avoid salt.Erin nue MERCEDES treatmentC ontinue all other medication s.Increase Valsartan to 320mg po dailySMA7 in ~ 6 weeks [id number] MD Lauren Nugent (Adult Med) [address] [place] [address] [phone] 07/10/2016 09:56:29 07/10/2016 10:53:59 Low back pain 053153333 M54.5 Chronic issue, xrays suggests DDD and vacuum disc at L4-5. There is no MRI at [facility] Tobacco de pendence syndrome 67163460 F17.290 [place] Tobacco Quitline informatio n was provided Pain of hip region 73499 002 M25.551 X rays suggest OA Uncontroll ed type 2 diabetes mellitus 852288829 E11.65 Benign ess ential hypertension 5698439 I10 Uncontroll ed despite what may be perceived as polypharma cy.Weight loss was discussed again today..Edi id salt.Erin nue MERCEDES treatmentC ontinue all other medication s. [id number] MD Lauren Nugent (Adult Med) [address] [place] [address] [id number] 09/10/2016 09:53:01 09/10/2016 17:44:26 Benign essential hypertension 7714550 I10 Uncontroll ed despite what may be perceived as polypharma cy, he may be fatigued and tired from his Clonidine, he really should discuss a dose reduction/ change with Drs. Keys and/or THOMAS Salas..Montrell ght loss was discussed again today..Edi id dietary salt.Erin nue MERCEDES treatment and get in to see Dr. Altman as he has not been seen since 2016Contin ue all other medication s. Uncontroll ed type 2 diabetes mellitus 924467690 E11.65 Uncontroll ed, increase Amaryl to 3 mg Disorder o f lipid metabolism 569724517 E78.9 It is unclear if he has been taking his Lipitor, it was not on his list and his LDL is 4498 [id number] MD Lauren Nugent (Adult Med) [address] [place] [address] [id number] 0 09/16/2016 11:49:42 09/16/2016 17:10:28 Thoracic back pain 474724247 M54.6 Strain of neck muscle 36 7168106 S16.1XXA [id number] MD Lauren Nugent (Adult Med) [address] [place] [address] [phone] 01/25/2017 16:10:48 01/25/2017 17:02:39 Influenza vaccine needed 6981761861 106 Z23 Uncontroll ed type 2 diabetes mellitus 367763587 E11.65 Uncontroll ed, I will increase his Amaryl to 4 mg Constipati on alternates with diarrhea 388103335 R19.7 Meds? IBS? Allergic rhinitis 287714 04 J30.9 Screening for malignant neoplasm of prostate 871090436 Z12.5 [id number] MD Lauren Nugent (Adult Med) [address] [place] [address] [phone] 02/22/2017 10:42:21 02/22/2017 12:10:37 Congestive heart failure 05068611 I50.9 Discharged home from [facility] on Entresto 49/51 BID, it however appears that his cardiologi Dr stringer Qayyum wasnts him on 97/103 dose as well as Guanfacine He is to discontinu e the Clonidine. Benign ess ential hypertension 6150654 I10 Controlled today Tobacco de pendence in remission 938237420 F17.960 [id number] MD Lauren Nugent (Adult Med) [address] [place] [address] [id number] 0 03/30/2017 14:07:13 03/30/2017 15:56:33 Acute sinusitis 39506457 J01.90 Complete the course of Augmentin, I do not see a need for further antibiotic s or a change in his regimen. Congestive heart failure 46405988 I50.9 The letter suggests that the Entresto should be billed to either Medicare or his Part D plan, he should speak to his pharmacist .Samples for now with detailed instructio ns [id number] MD Lauren Nugent (Adult Med) [address] [place] [address] [phone] 05/27/2017 10:15:04 05/27/2017 11:05:44 Uncontrolled type 2 diabetes mellitus 802333886 E11.65 He should intensify his diabetic diet Benign ess ential hypertension 6426792 I10 Uncontroll ed today.Stop Affrin NS Kidney disease 00876631 N08 Seizure disorder 3153743 02 G40.909 Chronic co ngestive heart failure 59936319 I50.9 EF 25-30 % [id number] MD Lauren Nugent (Adult Med) [address] [place] [address] [id number] 0 08/13/2017 16:13:15 08/13/2017 17:02:42 Anemia 296849877 D64.9 Labs ordered by the nephrologi 07/29/2017 Hb 8.7/Hct 28.Repeat Hb/Hct. Seizure disorder 4724711 02 G40.909 Major depr essive disorder 412165881 F32.9 [id number] MD Lauren Nugent (Adult Med) [address] [place] [address] [id number] 10/08/2017 09:54:33 10/08/2017 10:20:53 Anemia 903912956 D64.9 He is scheduled to be seen by GI on October 14, only able to tolerate iron BID, I wonder if some of this is iatrogenic from his multiple lab tests. Malignant essential hypertension 93837020 I10 He will be following up with his cardiologi [id number] MD Lauren Nugent (Adult Med) [address] [place] [address] [phone] 02/07/2018 10:06:37 02/08/2018 09:21:47 Benign hypertension 70859544 I10 Uncontroll ed, he will be following up with Dr. Washington Screening for malignant neoplasm of prostate 355966388 Z12.5 Uncontroll ed type 2 diabetes mellitus 054267371 E11.65 He should intensify his diabetic diet Chronic co ngestive heart failure 70754606 I50.9 EF previously 25-30 %, now 55% although he has MERCEDES, HTN and he is limited. Moderate p ersistent asthma 305420663 J45.40 Seasonal allergy 5242065 04 J30.2 [id number] MD Lauren Nugent (Adult Med) [address] [place] [address] [phone] 0 05/05/2018 09:37:48 05/06/2018 08:44:41 Pre-surgery evaluation 601362531 Z01.818 Moderate risk of complicati ons, he would need a better BP reading and/or an opinion from his cardiologi st. Benign ess ential hypertension 3198972 I10 Uncontroll ed today.Riya Crump NS, although he has not been using itHe states that his BP was normal yesterday when He had an extraction Low back pain 829398279 M54.5 Chronic issue. Allergic rhinitis 784812 04 J30.9 History of recurrent sinusitis, the last episode been going on for 3 weeks Obstructiv e sleep apnea syndrome 68712097 G47.33 He has been compliant with his CPAP. [id number] MD Lauren Nugent (Adult Med) [address] [place] [address] [id number] [id number] 05/19/2018 14:53:34 05/20/2018 08:28:38 Sinusitis 56963564 J32.9 Benign hypertension 1072 5009 I10 Uncontroll ed, he will be following up with Dr. Washington.Disc ussed with Dr Washington Dislocatio n of temporomandibular joint 650829716 S03.00XA Noted on the CT scan Type 2 carley betes mellitus without complication 498073965 E11.9 On Metformin 1000mg po daily and Amaryl 1mg po daily, BS 110-541 [id number] MD Lauren Nugent (Adult Med) [address] [place] [address] [id number] 0 10/19/2018 09:33:48 10/20/2018 08:13:24 Benign essential hypertension 2981356 I10 Uncontroll ed, he could not tolerate the change I made to his Carvedilol on hs last visit. Asthma 870244415 J45.90 9 Nicotine dependence 5629 4008 F17.200 Discussed Type 2 carley betes mellitus without complication 956036897 E11.9 Controlled , on Metformin 1000 mg po daily and Amaryl 4mg po daily. Disorder o f lipid metabolism 693377544 E78.9 Uncontroll ed on LipitorSwi tch to Crestor [id number] MD Lauren Nugent (Adult Med) [address] [place] [address] [phone] 01/31/2019 14:14:10 01/31/2019 14:57:12 Administration of influenza vaccine 75699858 Z23 Mediastinal mass 8325978 1 R22.2 A 2.5 cm mediastina l mass was noted on the CT scan of the chest done at [facility]. The recommenda tions include a follow up CT in 4- 6 months, a PET scan or a biopsy with a DDX of a LN or Thymoma.He will be referred to the pulmonolog ist Obstructiv e sleep apnea syndrome 15828503 G47.33 He has been compliant with his CPAP. Subcutaneous nodule 9532 5000 R22.9 Observe Type 2 carley betes mellitus without complication 157060445 E11.9 Body mass index 25-29 - overweight 213212389 Z68.29 Screening for malignant neoplasm of prostate 557088326 Z12.5 Follow-up visit 94297940 9 Z09 Chronic sy stolic heart failure 459493324 I50.22 [id number] MD Lauren Nugent (Adult Med) [address] [place] [address] 07116-915 0 03/14/2019 09:57:30 03/14/2019 10:57:14 Follow-up visit 821608821 Z09 History of pneumonia 161 864668 Z87.01 Admitted to [facility] with CAP, R. sided Type 2 carley betes mellitus without complication 785191139 E11.9 He complains of symptomati c hypoglycem ia in the afternoons Stop Glimepirid e 2 mgStart Glimepirid e 1 mg Mediastinal mass 5501050 1 R22.2 A 2.5 cm mediastina l mass was noted on the CT scan of the chest done at [facility] 01/27/2019. The recommenda tions include a follow up CT in 4- 6 months, a PET scan or a biopsy with a DDX of a LN or Thymoma.He has been referred to the pulmonolog istRepeat CT scan in 6 months to evaluate the mass and a followup for his PNA Subcutaneous nodule 9532 5000 R22.9 Observe [id number] MD Lauren Nugent (Adult Med) [address] [place] [address] [phone] 0 04/28/2019 09:59:15 04/28/2019 10:37:18 Pain in left knee 4424823944 96082 M25.562 Restrictiv e lung disease 50117706 J98.4 Hyperlipidemia 38609891 E78.5 Discussed Benign ess ential hypertension 7070239 I10 Chronicall y uncontroll ed despite multiple medication s and treatment of his MERCEDES. [id number] [facility] [address] [place] [address] [id number] 0 06/05/2019 11:26:11 06/05/2019 12:17:15 Type 2 diabetes mellitus without complication 774628784 E11.9 He complains of symptomati c hypoglycem ia. Stop Glimepirid e. Hypoglycemia 857808924 E 16.2 Stop Glimepirid e [id number] MD Lauren Nugent (Adult Med) [address] [place] [address] [phone] 0 10/11/2019 09:07:17 10/12/2019 10:40:46 Benign essential hypertension 3178686 I10 Chronicall y uncontroll ed despite compliance with his multiple medication s and treatment of his MERCEDES. On Entresto, Metoprolol , Minoxidil, and Spironolac tone although the Aldactone was held with his Metformin and Aspirin before his surgery. He should follow up with cardiology and nephrology as they are helping with his BP management . Discussed with Dr THOMAS Salas [id number] [facility] [address] [place] [address] [id number] 0 04/15/2020 08:11:41 04/15/2020 12:24:55 Screening for malignant neoplasm of prostate 135389779 Z12.5 Needs infl uenza immunization 559104964 Z28.3 History of cholecystectomy 692006073 Z90.49 History of total knee arthroplasty 7850031315 105 Z96.659 History of polyp of colon 908367513 Z86.010 Viral screening 99669199 4 Z11.59 Benign ess ential hypertension 7688567 I10 Chronic HTN on multiple medication s.On Amlodipine , Carvedilol , Entresto, Hydralazin e?, Metoprolol , Minoxidil, and Spironolac toneHe does not need Carvedilol and Metoprolol , the Metoprolol was stopped on his October, discharge from [facility] ed type 2 diabetes mellitus 550470492 E11.65 He should intensify his diabetic diet [id number] MD Lauren Nugent (Adult Med) [address] [place] [address] 23160-814 0 06/26/2020 08:08:50 06/27/2020 07:58:11 Type 2 diabetes mellitus without complication 126886953 E11.9 Medication monitoring 39 8012447 Z51.81 Disorder o f lipid metabolism 938267902 E78.9 [id number] MD Lauren Nugent (Adult Med) [address] [place] [address] [phone] 0 10/14/2020 08:34:07 10/15/2020 12:00:28 Cramp 54187999 R25.2 [id number] MD Lauren Nugent (Adult Med) [address] [place] [address] 98912-254 0 11/18/2020 11:51:29 11/19/2020 12:34:49 Chronic low back pain 337066867 M54.5 Chronic lower back pain on Hydrocodon e from the neurologis tHe will need to be referred to chronic pain management Type 2 carley betes mellitus without complication 643970563 E11.9 Benign ess ential hypertension 2228870 I10 Chronic HTN on multiple medication s and compliant with his CPAP.On Amlodipine , Carvedilol , Entresto, Minoxidil, and Spironolac tone Intention tremor 0015529 6 G25.2 Reported, not noted on his exam today.He should discuss this with Dr Jose Screening for malignant neoplasm of prostate 342029074 Z12.5 Nicotine dependence 5629 4008 F17.200 Discussed Uncontroll ed type 2 diabetes mellitus 187684387 E11.65 [id number] MD Lauren Nugent (Adult Med) [address] [place] [address] 33520-994 0 03/05/2021 09:21:07 03/06/2021 11:52:43 Uncontrolled type 2 diabetes mellitus 936270268 E11.65 Screening for malignant neoplasm of prostate 719783804 Z12.5 Nicotine dependence 5629 4008 F17.200 Discussed Needs infl uenza immunization 060734434 Z28.3 He is not sure if he had it at or not, but he will check Skin lesion 27310966 L98 .9 Monitor, clinically it appears to be a hemorrhagi c cyst like lesion Hyperuricemia 34783273 E 79.0 He has no history of Gout [id number] MD Lauren Nugent (Adult Med) [address] [place] [address] 19459-743 0 06/05/2021 08:04:52 06/06/2021 09:44:58 Neuropathy 166757658 G62.9 DDX. DM neuropathy vs Meralgia parastheti ca.Trial of Neurontin, side effects were discussed [id number] MD Lauren Nugent (Adult Med) [address] [place] [address] [phone] 0 07/30/2021 11:21:16 07/31/2021 07:04:01 History of polyp of colon 258787573 Z86.010 09/12/2015 , done by Dr Harrison Body mass index 30+ - obesity 471506344 Z68.30 Neuropathy 544349067 G62 .9 DDX. DM neuropathy vs Meralgia parastheti ca.Continu e NeurontinL abs Nicotine dependence 5629 4008 F17.200 DiscussedC XR 12/2020 Type 2 carley betes mellitus without complication [id number] E11.9 Medication monitoring 39 2643160 Z51.81 Benign ess ential hypertension 4949874 I10 Chronic HTN on multiple medication s and compliant with his CPAP.On Amlodipine , Carvedilol , Entresto, Minoxidil, and Spironolac tone [id number] MD Lauren Nugent (Adult Med) [address] [place] [address] [phone] 08/25/2021 10:19:20 08/26/2021 07:39:40 Folliculitis 29304102 L73.9 It appears that they have drained and healed, if he has another flare, he can take Bactrim as prescribed .h Nodule of skin of left hand [id number] 9620438 R22.32 This feels bony and benign [id number] MD Lauren Nugent (Adult Med) [address] [place] [address] [phone] 12/30/2021 09:55:29 12/31/2021 07:10:57 Body mass index 25-29 - overweight 895267462 Z68.29 Chronic anemia 316875074 D64.9 Labs 12/25/2021 Hb 12.3, Hct 41 MCV 79Colonosc opy 09/12/2015 Polyps, Hemorrhoid sEGD 11/05/2017 NLHx. of RACHAEL History of polyp of colon 800178054 Z86.010 09/12/2015 AH, done by Dr Tye Serna of [facility] hip joint 0959196909 44363 M25.551 He had mild arthritis on the xray done in 2017 [id number] MD Lauren Nugent (Adult Med) [address] [place] [address] [phone] 01/30/2022 15:36:01 02/02/2022 18:10:44 Chronic anemia 407186763 D64.9 Labs 12/30/2021 Hb 11.7, Hct 39.1Labs 12/25/2021 Hb 12.3, Hct 41 MCV 79Colonosc opy 09/12/2015 Polyps, Hemorrhoid sEGD 11/05/2017 NLHx. of IDAGI to see Diabetes mellitus 773193 09 E11.9 Nicotine dependence 5629 4008 F17.200 DiscussedC XR 12/2020 Osteoarthritis of hip 23 6796584 M16.9 [id number] MD Lauren Nugent (Adult Med) [address] [place] [address] [phone] 07/22/2022 09:38:33 07/24/2022 10:46:47 Type 2 diabetes mellitus without complication 174478965 E11.9 HBA1C 6.7 05/08/2022 Chronic anemia 437035469 D64.9 Improvemen t noted 05/08/2022; Hb 14, Hct 47Labs 12/30/2021 Hb 11.7, Hct 39.1Labs 12/25/2021 Hb 12.3, Hct 41 MCV 79Colonosc opy 09/12/2015 Polyps, Hemorrhoid sEGD 11/05/2017 NLHx. of IDARecent capsule endoscopy by GI Kidney disease 76459938 N08 Screening for malignant neoplasm of prostate 085377478 Z12.5 Malaise and fatigue 2717 87077 R53.81 [id number] Regino Pardo MD [facility] (Adult Med) [address] [place] [address] [phone] 09/24/2022 09:41:03 09/25/2022 12:20:47 Follow-up visit 723925633 Z09 Type 2 acrley betes mellitus without complication 494635262 E11.9 HBA1C 6.7 05/08/2022 Benign ess ential hypertension 9161336 I10 Chronic HTN on multiple medication s and compliant with his CPAP.On Amlodipine 10 mg, Chlorthali done, Entresto, Minoxidil, and Spironolac tone as well as Nifedipine 60 mgStop Amlodipine Increase Nifedipine to 90 mg Intermitte nt claudication 93376137 I73.9 [id number] Regino Pardo MD [facility] (Adult Med) [address] [place] [address] [phone] 11/11/2022 11:15:38 11/12/2022 12:30:52 Benign essential hypertension 4870083 I10 Stable OV 09/24/2022 hronic HTN on multiple medication s and compliant with his CPAP.On Amlodipine 10 mg, Chlorthali done, Entresto, Minoxidil, and Spironolac tone as well as Nifedipine 60 mgStop Amlodipine Increase Nifedipine to 90 mg [id number] Regino Pardo MD [facility] (Adult Med) [address] [place] [address] [phone] 04/28/2023 12:25:01 04/30/2023 14:23:19 Uncontrolled type 2 diabetes mellitus 001004078 E11.65 11% on 08/16/2022 and then 8.8 % (09/24/2022 )Endocrino logy follow up neededLabs Nicotine dependence 5629 4008 F17.200 Z87.891 He has a 30+ pack year smoking historyLDC T neededCess ation was discussedC XR 12/2020 Immunization advised 310 230268 Z71.9 Medication review done by doctor [id number] Z76.89 Body mass index 30+ - obesity 175854109 Z68.30 Overweight 117018776 E66 .3 [id number] MD Lauren Nugent (Adult Med) [address] [place] [address] [phone] 06/08/2023 10:59:11 06/09/2023 12:48:33 Hyperlipidemia 76364313 E78.5 Discussed, his Lipid panel from 05/05/2023, TC 230, TG 730, HDL 32, LDL?. This is very abnormal considermindy casas he is on Rosuvastat in. I am not sure he was fasting and he should have this repeated. Type 2 carley betes mellitus without complication 210443030 E11.9 HBA1C 6.7 on 05/08/2022, the repeat test is pending Medication review done by doctor [id number] Z76.89 Follow-up visit 07894853 9 Z09 [id number] MD Lauren Nugent (Adult Med) [address] [place] [address] [phone] 07/08/2023 11:14:36 07/08/2023 12:13:15 Disorder of lipid metabolism 464747992 E78.9 Type 2 carley betes mellitus without complication 525446493 E11.9 HBA1C 6.3 on 05/05/2023 Medication review done by doctor 298589367 Z76.89 [id number] MD Lauren Nugent (Adult Med) [address] [place] [address] [phone] 09/17/2023 11:24:15 09/20/2023 15:18:47 Type 2 diabetes mellitus without complication 524191395 E11.9 HBA1C 6.3 on 05/05/2023 Tubular ad enomatous polyp of colon 080527105 D12.6 History of calculus of kidney 931144851 Z87.442 Seen by the urologist, ESWL was discussed Screening for malignant neoplasm of prostate 496667749 Z12.5 [id number] MD Lauren Nugent (Adult Med) [address] [place] [address] [phone] 03/29/2024 14:07:38 04/04/2024 09:39:21 Bilateral tinnitus 5243325664 102 H93.13 Unintentio nal weight loss 733415774 R63.4 -38lbs Essential hypertension 82449882 I10 Medication monitoring 39 5880007 Z51.81 [id number] MD Lauren Nugent (Adult Med) [address] [place] [address] [phone] 04/19/2024 10:11:53 04/20/2024 14:40:16 Unintentional weight loss 702503375 R63.4 He has gained back OV 03/29/2024 -38lbs Essential hypertension 84808703 I10 Stable while off the Nifedipine Kidney disease 46338970 N08 Labs Creatinine 1.79 on 04/04/2024 and now 1.58 on 04/07/2024 Chronic anemia 257967051 D64.9 Labs 04/04/2024 Hb 12, HCT 39 Previous OVImprovem ent noted 05/08/2022; Hb 14, Hct 47Labs 12/30/2021 Hb 11.7, Hct 39.1Labs 12/25/2021 Hb 12.3, Hct 41 MCV 79Colonosc opy 09/12/2015 Polyps, Hemorrhoid sEGD 11/05/2017 NLHx. of IDARecent capsule endoscopy by GI Nicotine dependence 5629 4008 F17.200 Z87.891 He has a 30+ pack year smoking historyLDC T needed in May,5Cessat ion was discussedC XR 12/2020 Physical deconditioning 6795733272 9102 R68.89 He will benefit from the use of a cane to safely accomplish his ADLs at home. Administra tion of influenza vaccine 72506552 Z23 Medication review done by doctor 118487705 Z76.89 Updated [id number] MD Lauren Nugent (Adult Med) [address] [place] [address] [phone] 07/18/2024 09:23:13 07/19/2024 15:35:40 Body mass index 25-29 - overweight 788216056 Z68.29 Overweight 695379902 E66 .3 Medication monitoring 39 1427776 Z51.81 He has brought in a list which I have reviewed with him, he appears to be on Phenytoin Na 100 mg Ext CAP PO BID and Phenytek 200 mg PO BID. The refill history suggests that he is prescribed Phenytoin Na extended 100 mg CAPS BID by me and Phenytek 200 mg CAP PO daily. by his neurologis t, Dr Aviles.His list also suggests that he is on Spironolac tone 50 mg po once a day, although the refill history suggests that he is on 100 mg po daily Bilateral tinnitus 68443 61000 102 H93.13 Disorder of pharynx 7586 0007 J39.2 [id number] MD Lauren Nugent (Adult Med) [address] [place] [address] [phone] 08/04/2024 11:01:00 08/08/2024 11:38:44 Medication review done by doctor [id number] Z76.89 Reviewed and updated Erectile dysfunction 860 122051 F52.21 Start Viagra, side effects were discussed including vision changes, headache, hypotensio n and dizziness. Seizure disorder 9323535 02 G40.909 Phenytoin level 7.8 on 07/18/2024O n Carbamazep ine 200 mg TID, Levetirace carter 1000 mg 1.5 TAB BID and Phenytek 200 mg CAP BID from his neurologis t, Dr Vivi Aviles.He is also on Phenytoin sodium extended 100 MG 2 CAPS BID from ma.He will be seeing his neurologis t in the next week and will discuss his regimen, for safety, he really should have one provider prescribin g his medication s. [id number] MD Lauren Nugent (Adult Med) [address] [place] [address] [phone] 11/02/2024 11:12:11 11/06/2024 11:53:24 Reduced mobility 3160347 Z74.09 Peripheral arterial disease 766585105 I73.9 [id number] MD Lauren Nugent (Adult Med) [address] [place] [address] [phone] 09/27/2024 11:03:30 09/28/2024 09:03:32 Adult health examination 022658134 Z00.00 Health Risk Assessment collected and reviewed Health Concerns Section Related Observation LastModified by Organization Detai ls LastModified Time None Recorded Concern Status LastModified by Organization Details LastModified Time None Recorded Advance Directives Directive None Recorded Payers Insurance Date Sequence Insurance Name Policy Number Policy Moore Covered Member ID Moore Member ID Guarantor Name 08/07/2024 2 [place] [facility] Hortencia Camarena [id number] Hortencia Camarena 08/07/2024 2 [place] Hortencia Camarena [id number] Hortencia Camarena 08/07/2024 3 [place] [facility] DUAL ELIGIBLE (MEDICARE REPLACEMENT/ADV ANTAGE - HMO) Hortencia Camarena [id number] Hortencia Camarena 08/07/2024 1 [place] Hortencia Camarena [id number] Hortencia Camarena 10/31/2024 2 [place] WHEN MEDICARE OR MEDICARE REPLACEMENT PRIMARY) Hortencia Camarena [id number] Hortencia Camarena 08/07/2024 [place] [facility] Hortencia Camarena [id number] Hortencia Camarena 08/07/2024 2 [place] Hortencia Camarena [id number] Hortencia Camarena 08/07/2024 1 [facility] RETIREE (PPO) [id number] Hortencia Camarena [id number] Hortencia Camarena 08/07/2024 1 [facility] (MEDICARE REPLACEMENT/ADV ANTAGE - HMO) [id number] Hortencia Camarena [id number] Hortencia Camarena 10/31/2024 1 [place] Hortencia Camarena [id number] Hortencia Camarena 08/07/2024 2 [place] [facility] Hortencia Camarena [id number] Hortencia Camarena 08/07/2024 [employer] [id number] Hortencia Camarena 10/31/2024 [place] [facility] Hortencia Camarena [id number] Hortencia Camarena 08/07/2024 3 [facility] MEDICARE ADVANTAGE [place] Hortencia Camarena [id number] Hortencia Camarena Notes Date Note Type Note Provider Name and Address Organization Details Recorded Time 4 text/html Hypertension F/UReported bypatient.Associated Symptoms:no lightheadedness; no chest pain; no shortness of breath; no palpitations; no edema; no calf pain with exertion;dizziness Lifestyle:regular exercise; limiting/avoiding salt Medications:taking medications as directed; no side effects from medication Better, a little bit betterEvery mariajose pat I get a little dizzy In the interim, he was back again in the ER on 04/07/2024 with hiccups and chest pain. He has a colonoscopy and what sounds like a vascular procedure scheduled in [place]. He feels much better without the Nifedipine and every now and then he gets dizzy and his legs are not as strong as they once were. Regino Pardo MD Attn: Accounting,[address], [place], [address], [facility] 04/19/2024 11:21:51 5 text/html Poor historian I was starting to have trouble breathing, it was starting to close upJust like cutting my air off In the interim, he was seen by cardiology, pain management and he had a LDCT and a colonoscopy. I referred him to ENT for Tinnitus on 01/12/2024, he now also has difficulty catching his breath at times and he also has throat issues. The issues appear to be somewhat chronic and intermittent and he has a little bit of difficulty describing his symptoms. He will like to be seen for all these issues by ENT. He is known to have MERCEDES and he is waiting on his new equipment. Regino Pardo MD Attn: Accounting, [address] [facility], [place], [address], [facility] 07/18/2024 16:35:42 5 text/html Erectile DysfunctionReported bypatient.Severity:worse amy; severe Duration:intermittent Context:never able to maintain a hard erection;not able to achieve penetration Associated Symptoms:no dysuria; no penile discharge; normal libido Mr Camarena complains of an inadequate erection, he has in the past used Viagra 100 mg in the past but it is unclear who had prescribed it He has been compliant with all his medications. Regino Pardo MD Attn: Accounting, [address] [facility], [place], [address], [facility] 08/04/2024 14:46:11 5 text/html MAW 2Reported bypatient.Diet and Nutrition:healthy diet Fracture Risk:history of fractures;previous musculoskeletal injuries Concentration and Memory:no decreased concentrating ability; no memory lapses or loss; does not forget words Speech/Motor difficulties:no speech difficulties; no difficulty expressing formulated concepts; no difficulty with fine manipulative tasks; no difficulty writing/copying; no slowed reaction time; does not knock things over when trying to pick them up Hearing:Tinnitus Vision:worse with distance Activities of Daily Living:able to bathe with limited or no assistance; able to contol urination and bowels; able to dress with limited or no assistance; able to feed self with limited or no assistance; able to get out of chair or bed with limited or no assistance; able to groom with limited or no assistance; able to toilet with limited or no assistance Instrumental Activities of Daily Living:able to manage medications with limited or no assistance; able to manage money with limited or no assistance; able to prepare meals with limited or no assistance; able to use the phone with limited or no assistance;unable to do house work without assistance Falls Risk Assessment:no frequent falls while walking; no fall in the past year; no fall since last visit;dizziness/vertigo Home Safety:no unsafe florencio hazzards; no unsafe stairs; working smoke/CO detectors; practicing 'safer sex'; has hand bars in the bathroom/shower; good lighting in the home;fire arms Wellness visit Regino Pardo MD Attn: Accounting, [place], [address], [facility] 09/27/2024 12:37:59 5 text/html Supposed to be re-evaluated for my caneI cannot really walk that far He complains of difficulty walking as his legs cramp up and are painful after he walks, with a need to stop after a certain distance and now wants a scooter. He is known to have chronic LBP, PAD and peripheral neuropathy. A cane would no longer meets his needs. Regino Pardo MD Attn: Accounting, [place], [address], [facility] 11/02/2024 13:57:09
--- NOTE | 2024-11-09 12:58 | REHSTMBS ---
Assessment and note entered by Janis Vargas, [employer]ER Modified Barium Swallow Evaluation ICD-10 Condition Codes (ST) Dysphagia, unspecified R13.1 Feeding Type Recommended Oral Food Consistency Regular, Level 7 Liquid Consistency Thin (0) ST Clinical Summary The above pleasant and cooperative pt was seen for an outpatient modified barium swallow. He was alert & oriented, and able to follow commands. He is currently on a regular diet and reports difficulty in that it feels like food gets larger & larger in his throat as he eats and after. He denied coughing or choking associated with liquids or solids. Oral mucosa is normal; informal oral peripheral exam revealed lingual and labial structures to be normal. He was able to dry swallow on command and exhibited clear vocal quality. The patient was seated for a lateral view and presented with 5cc of thin liquid barium via spoon , pudding consistency barium via a spoon, cracker coated with barium pudding via spoon, and uncontrolled thin liquid barium. This was presented via a cup & straw. Oral preparatory and oral phase symptoms: none. Pharyngeal phase symptoms: WFL with cervical osteophytes along the lower cervical column which were non protruding. Esophageal stage symptoms: none. Overall, no laryngeal penetration, residual or aspiration occurred. Impressions: Normal swallow Ability Recommendation: Regular diet; pt c/o of the same sensation after the MBS testing i.e. it felt like he had residual in his throat. No further ST is warranted at this time.
== END 2024-11-09 12:05 | disposition home or self-care (01) ==
PROVIDERS: PCP Internal Medicine Infectious Disease; Visit Provider Otolaryngology
DX: R13.10 Dysphagia, unspecified (principal)
CPT/HCPCS: 74230; 92611